=== PATIENT | male | born 1960 | race Caucasian/White ===

== ENCOUNTER 2016-05-18 12:22 | Inpatient (IN) | payer OTHER ==
[2016-05-18 12:46] VITALS: BMI 20.2
--- NOTE | 2016-05-18 15:10 | HP ---
COWS - Scale Resting Pulse: 0= [place] 80 or Below Sweatin=Flushed/Facial Moisture Restless Observation: 1= Difficult to Sit Still Pupil Size: 0= Normal to Room Light Bone or Joint Aches: 2= Severe Diffuse Aches Runny Nose/ Eye Tearin= Runny Nose/Eyes GI Upset > 30mins: 0= None Tremor Observation: 2= Slight Tremor Visible Yawning Observation: 2= >3x During Session Anxiety or Irritability: 2=Irritable/Anxious Goose Flesh Skin: 3=Piloerection COWS Score: 16 CIWA Score - CIWA Score Nausea/Vomitin-No Nausea/No Vomiting Muscle Tremors: 4-Moderate,w/Arms Extend Anxiety: 4-Mod. Anxious/Guarded Agitation: 4-Moderately Restless Paroxysmal Sweats: 3 Orientation: 0-Oriented Tacttile Disturbances: 0-None Auditory Disturbances: 0-None Visual Disturbances: 0-None Headache: 2-Mild CIWA-Ar Total Score: 17 Admission ROS BHS - HPI Chief Complaint: I am here for detox and stop using drugs. Allergies/Adverse Reactions: Allergies Allergy/AdvReac Type Severity Reaction Status Date / Time No Known Drug Allergies Allergy Verified 05/18/16 14:50 NKA Allergy Uncoded 05/18/16 14:50 History of Present Illness: pt is a 55yr old male with a history of heroin and alcohol dependence seeking detox for treatment. pt is also HIV/AIDS currently taking his own medication. Exam Limitations: No Limitations - Ebola screening Have you traveled outside of the country in the last 21 days: No Have you had contact with anyone from an Ebola affected area: No Have you been sick,other than usual withdrawal symptoms: No Do you have a fever: No - Review of Systems Constitutional: Chills, Diaphoresis, Loss of Appetite, Night Sweats, Changes in sleep, Unintentional Wgt. Loss EENT: reports: Nose Congestion Respiratory: reports: No Symptoms reported Cardiac: reports: No Symptoms Reported GI: reports: Poor Appetite, Poor Fluid Intake : reports: No Symptoms Reported Musculoskeletal: reports: No Symptoms Reported Integumentary: reports: Flushing Neuro: reports: Headache, Tingling, Tremors Endocrine: reports: Excessive Sweating, Flushing, Intolerance to Cold, Intolerance to Heat Hematology: reports: No Symptoms Reported Psychiatric: reports: Judgement Intact, Mood/Affect Appropiate, Orientated x3, Agitated, Anxious Other Systems: Reviewed and Negative Patient History - Patient Medical History Hx Anemia: No Hx Asthma: No Hx Chronic Obstructive Pulmonary Disease (COPD): No Hx Cancer: No Hx Cardiac Disorders: No Hx Congestive Heart Failure: No Hx Hypertension: No Hx Hypercholesterolemia: No Hx Pacemaker: No HX Cerebrovascular Accident: No Hx Seizures: No Hx Dementia: No Hx Diabetes: No Hx Gastrointestinal Disorders: No Hx Liver Disease: No Hx Genitourinary Disorders: No Hx Sexually Transmitted Disorders: No Hx Renal Disease (ESRD): No Hx Thyroid Disease: No Hx Human Immunodeficiency Virus (HIV): Yes (diagnosed 1981) Hx Depression: Yes Hx Suicide Attempt: No (denies) Hx Bipolar Disorder: Yes Hx Schizophrenia: No - Patient Surgical History Past Surgical History: Yes Hx Neurologic Surgery: No Hx Cataract Extraction: No Hx Cardiac Surgery: No Hx Lung Surgery: No Hx Breast Surgery: No Hx Breast Biopsy: No Hx Appendectomy: No Hx Cholecystectomy: No Hx Genitourinary Surgery: No Hx Section: No Hx Orthopedic Surgery: Yes (b/l hip replacement) Other Surgical History: SPLEENECTOMY 1981 Anesthesia Reaction: No - PPD History Previous Implant?: Yes Documented Results: Negative w/o proof Implanted On Prior [facility] Admission?: Yes PPD to be Administered?: Yes - Reproductive History Patient is a Female of Child Bearing Age (11 -55 yrs old): No - Smoking Cessation Smoking history: Current every day smoker Have you smoked in the past 12 months: Yes Aproximately how many cigarettes per day: 6 Hx Chewing Tobacco Use: No Initiated information on smoking cessation: Yes 'Breaking Loose' booklet given: 05/18/16 - Substance & Tx. History Hx Alcohol Use: Yes Hx Substance Use: Yes Substance Use Type: Alcohol, Heroin Hx Substance Use Treatment: Yes - Substances Abused Alcohol Route: Oral Frequency: Daily Amount used: VODKA- 1.5PTS 16OZ BEERS Age of first use: 13 Date of Last Use: 05/18/16 Heroin Route: Inhalation Frequency: Daily Amount used: 10BAGS- $100 Age of first use: 35 Date of Last Use: 05/17/16 Family Disease History - Family Disease History Family History: Denies Admission Physical Exam BHS - Vital Signs Vital Signs: Vital Signs - 24 hr 05/18/16 12:43 Temperature 98 F Pulse Rate 66 Respiratory 20 Rate Blood Pressure 142/85 - Physical General Appearance: Yes: Disheveled, Moderate Distress, Thin, Tremorous, Irritable, Sweating, Anxious HEENTM: Yes: Normal Voice Respiratory: Yes: Lungs Clear, Normal Breath Sounds, No Respiratory Distress Neck: Yes: No masses,lesions,Nodules Breast: Yes: Within Normal Limits Cardiology: Yes: Regular Rhythm, Regular Rate, S1, S2 Abdominal: Yes: Within Normal Limits, Normal Bowel Sounds, Non Tender Genitourinary: Yes: Within Normal Limits Back: Yes: Normal Inspection Musculoskeletal: Yes: full range of Motion, Back pain Extremities: Yes: Normal Capillary Refill, Normal Inspection, Tremors Neurological: Yes: Fully Oriented, Alert, Normal Response Integumentary: Yes: Normal Color, Diaphoresis Lymphatic: Yes: Within Normal Limits - Diagnostic (1) Neuropathy, generalized Current Visit: Yes Status: Chronic (2) AIDS (acquired immunodeficiency syndrome), CD4 >200 and <500 Current Visit: Yes Status: Chronic (3) Alcohol dependence with uncomplicated withdrawal Current Visit: Yes Status: Chronic (4) Opioid dependence with withdrawal Current Visit: Yes Status: Chronic Cleared for Admission [facility] - Detox or Rehab [facility] Level of Care: Medically Managed Detox Regimen/Protocol: Methadone/Librium [facility] Breath Alcohol Content Breath Alcohol Content: 0 Urine Drug Screen - Results Drug Screen Negative: No Urine Drug Screen Results: OPI-Opiates, MDMA-Ecstasy, BZO-Benzodiazepines
[2016-05-18] MEDS ORDERED: LOPERAMIDE HCL 2 MG CAPSULE PO PRN (15:11)
[2016-05-18] MEDS ORDERED: MAGNESIUM HYDROX 2400MG/30ML ORAL SUSPENSION 30 ML CUP PO PRN (15:11)
[2016-05-18] MEDS ORDERED: chlordiazePOXIDE HCL 25 MG CAPSULE PO PRN (15:11)
[2016-05-18] MEDS ORDERED: MENTHOL/PHENOL 1 EACH UD MM PRN (15:11)
[2016-05-18] MEDS ORDERED: ACETAMINOPHEN 325 MG TABLET (FP) PO PRN (15:11)
[2016-05-18] MEDS ORDERED: guaiFENesin/D-METHORPHAN HB 10 ML UNIT-DOSE CUPS PO PRN (15:11)
[2016-05-18] MEDS ORDERED: MAGNESIUM CITRATE 300 ML BOTTLE PO PRN (15:11)
[2016-05-18] MEDS ORDERED: MAG HYDROX/AL HYDROX/SIMETH 30 ML UNIT-DOSE CUP PO PRN (15:11)
[2016-05-18] MEDS ORDERED: IBUPROFEN 400 MG TABLET (FP) PO PRN (15:11)
[2016-05-18] MEDS ORDERED: hydrOXYzine PAMOATE 50 MG CAPSULE (FP) PO PRN (15:11)
[2016-05-18] MEDS ORDERED: P-EPHED 60MG/TRIPROLIDI 2.5MG TABLET PO PRN (15:11)
[2016-05-18] MEDS ORDERED: chlordiazePOXIDE HCL 25 MG CAPSULE PO ONE (15:53)
[2016-05-18] MEDS ORDERED: METHADONE HCL 10 MG TABLET (FOR DETOX USE ONLY) PO ONE ×2 (15:54→23:00)
[2016-05-18] MEDS: chlordiazePOXIDE HCL 25 MG CAPSULE PO SCH ×2 (17:42→22:26)
[2016-05-18] MEDS: THIAMINE HCL 100 MG TABLET (FP) PO SCH (22:25)
[2016-05-18] MEDS: diphenhydrAMINE HCL 50 MG CAPSULE PO PRN (22:27)
[2016-05-18 23:02] LABS: URINE APPEARANCE CLEAR; URINE BILIRUBIN NEGATIVE (NEGATIVE); URINE BLOOD NEGATIVE (NEGATIVE); URINE COLOR YELLOW; URINE GLUCOSE (UA) NEGATIVE (NEGATIVE); URINE KETONE NEGATIVE (NEGATIVE); URINE LEUK ESTERASE NEGATIVE (NEGATIVE); URINE NITRITE NEGATIVE (NEGATIVE); URINE UROBILINOGEN NEGATIVE E.U./dl (0.2-1.0)
[2016-05-18 23:15] LABS: URINE PROTEIN 2+ (NEGATIVE)
[2016-05-18 23:17] LABS: URINE MUCUS RARE; URINE RBC 5 /hpf (0-3); URINE WBC 2 /hpf (3-5)
[2016-05-19] MEDS: chlordiazePOXIDE HCL 25 MG CAPSULE PO SCH ×4 (06:12→22:29)
[2016-05-19] MEDS: RITONAVIR 100 MG TABLET PO SCH (08:43)
[2016-05-19] MEDS: EMTRICITABINE 200MG/TENOFOVIR 300MG PO SCH (08:43)
[2016-05-19] MEDS: ATAZANAVIR SO4 300 MG CAPSULE PO SCH (08:43)
[2016-05-19] MEDS: PATIENT'S OWN MEDICATION (NON-FORMULARY) (Dolutegravir Sodium 50 MG) PO SCH (08:43)
[2016-05-19] MEDS ORDERED: METHADONE HCL 10 MG TABLET (FOR DETOX USE ONLY) PO SCH (10:00)
[2016-05-19 10:09] LABS: MCH 28.8 pg (25.7-33.7); MCHC 32.5 g/dl (32.0-35.9); MEAN CELL VOLUME 88.6 fl (80-96); MEAN PLT VOLUME 10.9 fl (7.5-11.1); PLATELET COUNT 209 K/MM3 (134-434); RDW 16.4 % (11.9-15.9); WHITE BLOOD COUNT 9.1 K/mm3 (4.0-10.0)
[2016-05-19 10:17] LABS: CALCIUM 8.5 mg/dL (8.5-10.1)
[2016-05-19] MEDS: PRENATAL VITAMINS W/ FOLIC ACID TABLET (FP) PO SCH (10:17)
[2016-05-19] MEDS: NICOTINE 21 MG/24 HOURS TOPICAL PATCH TD SCH (10:18)
[2016-05-19 10:25] LABS: ALBUMIN 3.3 g/dl (3.4-5.0); ALK PHOS 139 U/L (45-117); ANION GAP 7 (8-16); BILIRUBIN,TOTAL 1.2 mg/dL (0.2-1.0); CO2 26 mmol/L (21-32); CREATININE 0.6 mg/dL (0.7-1.3); GLUCOSE,RANDOM 90 mg/dL (74-106); SGOT/AST 67 U/L (15-37); SGPT/ALT 62 U/L (12-78); TOT PROT 6.7 g/dl (6.4-8.2)
--- NOTE | 2016-05-19 10:40 | PN ---
[facility] CIWA - CIWA Score Nausea/Vomitin-No Nausea/No Vomiting Muscle Tremors: 4-Moderate,w/Arms Extend Anxiety: 3 Agitation: 4-Moderately Restless Paroxysmal Sweats: 3 Orientation: 0-Oriented Tacttile Disturbances: 0-None Auditory Disturbances: 0-None Visual Disturbances: 0-None Headache: 1-Very Mild CIWA-Ar Total Score: 15 BHS COWS - Scale Resting Pulse: 0= [place] 80 or Below Sweatin=Flushed/Facial Moisture Restless Observation: 0= Sits Still Pupil Size: 0= Normal to Room Light Bone or Joint Aches: 2= Severe Diffuse Aches Runny Nose/ Eye Tearin= Runny Nose/Eyes GI Upset > 30mins: 0= None Tremor Observation of Outstretched Hands: 2= Slight Tremor Visible Yawning Observation: 2= >3x During Session Anxiety or Irritability: 2=Irritable/Anxious Goose Flesh Skin: 0=Smooth Skin COWS Score: 12 S Progress Note (SOAP) Subjective: irritable agitation anxiety sweats interrupted sleep Objective: 05/19/16 10:39 Vital Signs Temperature 97.9 F 05/19/16 10:08 Pulse Rate 69 05/19/16 10:08 Respiratory Rate 16 05/19/16 10:08 Blood Pressure 130/75 05/19/16 10:08 O2 Sat by Pulse Oximetry (%) Laboratory Tests 05/18/16 05/19/16 05/19/16 22:24 06:00 06:00 WBC 9.1 RBC 4.32 Hgb 12.4 Hct 38.2 MCV 88.6 MCHC 32.5 RDW 16.4 H Plt Count 209 MPV 10.9 Sodium 144 Potassium 3.6 Chloride 111 H Carbon Dioxide 26 Anion Gap 7 L BUN 9 Creatinine 0.6 L Creat Clearance w eGFR > 60 Random Glucose 90 Calcium 8.5 Total Bilirubin 1.2 H AST 67 H ALT 62 Alkaline Phosphatase 139 H Total Protein 6.7 Albumin 3.3 L Urine Color Yellow Urine Appearance Clear Urine pH 6.0 Ur Specific [place] 1.019 Urine Protein 2+ H Urine Glucose (UA) Negative Urine Ketones Negative Urine Blood Negative Urine Nitrite Negative Urine Bilirubin Negative Urine Urobilinogen Negative Ur Leukocyte Esterase Negative Urine RBC 5 Urine WBC 2 Ur Epithelial Cells Rare Urine Mucus Rare awake/alert ambulating no acute distress Assessment: 05/19/16 10:40 withdrawal sx Plan: continue detox increase fluids
[2016-05-19] MEDS: buPROPion HCL 75 MG TABLET PO SCH ×2 (13:15→17:45)
--- NOTE | 2016-05-19 13:20 | CONSULT ---
[facility] Psychiatric Consult - Data Date of interview: 05/19/16 Admission source: [facility] Identifying data: This is 55 years old male ambulating with walker, with no psychiatric hospitalization history intoxicated aith : Alcohol, Opioids, Nicotine Substance Abuse History: - Smoking Cessation. Smoking history: Current every day smoker. Have you smoked in the past 12 months: Yes. Aproximately how many cigarettes per day: 6. Hx Chewing Tobacco Use: No. Initiated information on smoking cessation: Yes. 'Breaking Loose' booklet given: 05/18/16. - Substance & Tx. History. Hx Alcohol Use: Yes. Hx Substance Use: Yes. Substance Use Type : Alcohol, Heroin. Hx Substance Use Treatment: Yes. - Substances Abused. Alcohol. Route: Oral. Frequency: Daily. Amount used: VODKA- 1.5PTS 16OZ BEERS. Age of first use: 13. Date of Last Use: 05/18/16. Heroin. Route: Inhalation. Frequency: Daily. Amount used: 10BAGS- $100. Age of first use: 35. Date of Last Use: 05/17/16 Medical History: AIDS, Neuropathy, Byleteral Hip fracture history, ambulates with walker Psychiatric History: Patient reports history of depression and anxiety, reports tasking prior to admission: Wellbutrin 150mg po bid Physical/Sexual Abuse/Trauma History: Denies Additional Comment: Wellbutrin 150mg po bid Mental Status Exam - Mental Status Exam Alert and Oriented to: Person Cognitive Function: Fair Patient Appearance: Unkempt Mood: Sad Affect: Mood Congruent Patient Behavior: Cooperative Speech Pattern: Appropriate Voice Loudness: Normal Thought Process: Goal Oriented Thought Disorder: Being Controlled Hallucinations: Denies Suicidal Ideation: Denies Homicidal Ideation: Denies Insight/Judgement: Fair Sleep: Difficulty falling asleep Appetite: Fair Muscle strength/Tone: Clonus Gait/Station: Antalgic Additional Comments: Wellbutrin 150mg po bid Psychiatric Findings - Problem List ([place] 1, 2,3) (1) Alcohol dependence with uncomplicated withdrawal Current Visit: Yes Status: Chronic (2) Opioid dependence with withdrawal Current Visit: Yes Status: Chronic (3) Drug-induced mood disorder Current Visit: Yes Status: Acute - Initial Treatment Plan Initial Treatment Plan: Wellbutrin 150mg po bid
[2016-05-19] MEDS: THIAMINE HCL 100 MG TABLET (FP) PO SCH (22:29)
[2016-05-19] MEDS: diphenhydrAMINE HCL 50 MG CAPSULE PO PRN (22:29)
[2016-05-20] MEDS: chlordiazePOXIDE HCL 25 MG CAPSULE PO SCH ×2 (05:33→10:39)
[2016-05-20] MEDS: RITONAVIR 100 MG TABLET PO SCH (07:06)
[2016-05-20] MEDS: ATAZANAVIR SO4 300 MG CAPSULE PO SCH (07:06)
[2016-05-20] MEDS: EMTRICITABINE 200MG/TENOFOVIR 300MG PO SCH (07:06)
[2016-05-20] MEDS: PATIENT'S OWN MEDICATION (NON-FORMULARY) (Dolutegravir Sodium 50 MG) PO SCH (07:07)
--- NOTE | 2016-05-20 10:34 | PN ---
S CIWA - CIWA Score Nausea/Vomitin Muscle Tremors: 3 Anxiety: 3 Agitation: 2 Paroxysmal Sweats: 1-Minimal Palms Moist Orientation: 0-Oriented Tacttile Disturbances: 0-None Auditory Disturbances: 0-None Visual Disturbances: 1-Very Mild Sensitivity Headache: 1-Very Mild CIWA-Ar Total Score: 13 BHS COWS - Scale Resting Pulse: 0= [place] 80 or Below Sweatin= No chills or Flushing Restless Observation: 1= Difficult to Sit Still Pupil Size: 1= Pupils >than Normal Bone or Joint Aches: 0= None Runny Nose/ Eye Tearin= Nasal Congestion GI Upset > 30mins: 2= Nausea/Diarrhea Tremor Observation of Outstretched Hands: 2= Slight Tremor Visible Yawning Observation: 0= None Anxiety or Irritability: 2=Irritable/Anxious Goose Flesh Skin: 0=Smooth Skin COWS Score: 9 S Progress Note (SOAP) Objective: 05/20/16 10:34 Laboratory Tests 05/18/16 05/19/16 05/19/16 22:24 06:00 06:00 WBC 9.1 RBC 4.32 Hgb 12.4 Hct 38.2 MCV 88.6 MCHC 32.5 RDW 16.4 H Plt Count 209 MPV 10.9 Sodium 144 Potassium 3.6 Chloride 111 H Carbon Dioxide 26 Anion Gap 7 L BUN 9 Creatinine 0.6 L Creat Clearance w eGFR > 60 Random Glucose 90 Calcium 8.5 Total Bilirubin 1.2 H AST 67 H ALT 62 Alkaline Phosphatase 139 H Total Protein 6.7 Albumin 3.3 L Urine Color Yellow Urine Appearance Clear Urine pH 6.0 Ur Specific [place] 1.019 Urine Protein 2+ H Urine Glucose (UA) Negative Urine Ketones Negative Urine Blood Negative Urine Nitrite Negative Urine Bilirubin Negative Urine Urobilinogen Negative Ur Leukocyte Esterase Negative Urine RBC 5 Urine WBC 2 Ur Epithelial Cells Rare Urine Mucus Rare RPR Titer 05/19/16 06:00 WBC RBC Hgb Hct MCV MCHC RDW Plt Count MPV Sodium Potassium Chloride Carbon Dioxide Anion Gap BUN Creatinine Creat Clearance w eGFR Random Glucose Calcium Total Bilirubin AST ALT Alkaline Phosphatase Total Protein Albumin Urine Color Urine Appearance Urine pH Ur Specific [place] Urine Protein Urine Glucose (UA) Urine Ketones Urine Blood Urine Nitrite Urine Bilirubin Urine Urobilinogen Ur Leukocyte Esterase Urine RBC Urine WBC Ur Epithelial Cells Urine Mucus RPR Titer Nonreactive Vital Signs - 24 hr 05/19/16 05/19/16 05/19/16 14:51 18:08 22:33 Temperature 98.6 F 98.6 F 99 F Pulse Rate 80 74 70 Respiratory 16 18 18 Rate Blood Pressure 132/88 123/59 138/86 05/20/16 05/20/16 05/20/16 00:30 03:30 06:00 Temperature 98.2 F Pulse Rate 65 Respiratory 18 18 16 Rate Blood Pressure 117/72 05/20/16 10:19 Temperature 98.1 F Pulse Rate 68 Respiratory 18 Rate Blood Pressure 134/77 Assessment: 05/20/16 10:35 withdrawal Plan: continue detox protocol
[2016-05-20] MEDS: PRENATAL VITAMINS W/ FOLIC ACID TABLET (FP) PO SCH (10:39)
[2016-05-20] MEDS: buPROPion HCL 75 MG TABLET PO SCH ×2 (10:39→17:32)
[2016-05-20] MEDS: METHADONE HCL 5 MG TABLET (FOR DETOX USE ONLY) PO SCH (10:39)
[2016-05-20] MEDS: NICOTINE 21 MG/24 HOURS TOPICAL PATCH TD SCH (10:42)
[2016-05-20] MEDS: chlordiazePOXIDE 5 MG CAPSULE PO SCH ×2 (17:32→22:27)
[2016-05-20] MEDS: THIAMINE HCL 100 MG TABLET (FP) PO SCH (22:27)
[2016-05-21] MEDS: chlordiazePOXIDE 5 MG CAPSULE PO SCH ×2 (07:55→10:25)
[2016-05-21] MEDS: EMTRICITABINE 200MG/TENOFOVIR 300MG PO SCH (08:27)
[2016-05-21] MEDS: PATIENT'S OWN MEDICATION (NON-FORMULARY) (Dolutegravir Sodium 50 MG) PO SCH (08:27)
[2016-05-21] MEDS: RITONAVIR 100 MG TABLET PO SCH (08:27)
[2016-05-21] MEDS: ATAZANAVIR SO4 300 MG CAPSULE PO SCH (08:27)
[2016-05-21] MEDS: buPROPion HCL 75 MG TABLET PO SCH ×2 (10:25→17:09)
[2016-05-21] MEDS: PRENATAL VITAMINS W/ FOLIC ACID TABLET (FP) PO SCH (10:25)
[2016-05-21] MEDS: METHADONE HCL 5 MG TABLET (FOR DETOX USE ONLY) PO SCH (10:25)
[2016-05-21] MEDS: NICOTINE 21 MG/24 HOURS TOPICAL PATCH TD SCH (10:26)
--- NOTE | 2016-05-21 11:49 | PN ---
S Progress Note (SOAP) Subjective: ALERT,IRRITABLE,ANXIOUS,INTERRUPTED SLEEP,TREMOR,PAIN IN THE BODY AND BACK Objective: 05/21/16 11:46 Vital Signs Temperature 99.5 F 05/21/16 09:41 Pulse Rate 85 05/21/16 09:41 Respiratory Rate 20 05/21/16 09:41 Blood Pressure 124/73 05/21/16 09:41 O2 Sat by Pulse Oximetry (%) 05/21/16 11:46 Laboratory Last Values WBC 9.1 K/mm3 (4.0-10.0) 05/19/16 06:00 RBC 4.32 M/mm3 (4.00-5.60) 05/19/16 06:00 Hgb 12.4 GM/dL (11.7-16.9) 05/19/16 06:00 Hct 38.2 % (35.4-49) 05/19/16 06:00 MCV 88.6 fl (80-96) 05/19/16 06:00 MCHC 32.5 g/dl (32.0-35.9) 05/19/16 06:00 RDW 16.4 % (11.9-15.9) H 05/19/16 06:00 Plt Count 209 K/MM3 (134-434) 05/19/16 06:00 MPV 10.9 fl (7.5-11.1) 05/19/16 06:00 Sodium 144 mmol/L (136-145) 05/19/16 06:00 Potassium 3.6 mmol/L (3.5-5.1) 05/19/16 06:00 Chloride 111 mmol/L (98-107) H 05/19/16 06:00 Carbon Dioxide 26 mmol/L (21-32) 05/19/16 06:00 Anion Gap 7 (8-16) L 05/19/16 06:00 BUN 9 mg/dL (7-18) 05/19/16 06:00 Creatinine 0.6 mg/dL (0.7-1.3) L 05/19/16 06:00 Creat Clearance w eGFR > 60 (>60) 05/19/16 06:00 Random Glucose 90 mg/dL (74-106) 05/19/16 06:00 Calcium 8.5 mg/dL (8.5-10.1) 05/19/16 06:00 Total Bilirubin 1.2 mg/dL (0.2-1.0) H 05/19/16 06:00 AST 67 U/L (15-37) H 05/19/16 06:00 ALT 62 U/L (12-78) 05/19/16 06:00 Alkaline Phosphatase 139 U/L (45-117) H 05/19/16 06:00 Total Protein 6.7 g/dl (6.4-8.2) 05/19/16 06:00 Albumin 3.3 g/dl (3.4-5.0) L 05/19/16 06:00 Urine Color Yellow 05/18/16 22:24 Urine Appearance Clear 05/18/16 22:24 Urine pH 6.0 (5.0-8.0) 05/18/16 22:24 Ur Specific [place] 1.019 (1.001-1.035) 05/18/16 22:24 Urine Protein 2+ (NEGATIVE) H 05/18/16 22:24 Urine Glucose (UA) Negative (NEGATIVE) 05/18/16 22:24 Urine Ketones Negative (NEGATIVE) 05/18/16 22:24 Urine Blood Negative (NEGATIVE) 05/18/16 22:24 Urine Nitrite Negative (NEGATIVE) 05/18/16 22:24 Urine Bilirubin Negative (NEGATIVE) 05/18/16 22:24 Urine Urobilinogen Negative E.U./dl (0.2-1.0) 05/18/16 22:24 Ur Leukocyte Esterase Negative (NEGATIVE) 05/18/16 22:24 Urine RBC 5 /hpf (0-3) 05/18/16 22:24 Urine WBC 2 /hpf (3-5) 05/18/16 22:24 Ur Epithelial Cells Rare /hpf (FEW) 05/18/16 22:24 Urine Mucus Rare 05/18/16 22:24 RPR Titer Nonreactive (NONREACTIVE) 05/19/16 06:00 Assessment: 05/21/16 11:48 WITHDRAWAL SYMPTOM Plan: CONTINUE DETOX
[2016-05-21] MEDS: chlordiazePOXIDE HCL 10 MG CAPSULE PO SCH ×2 (17:07→22:23)
[2016-05-21] MEDS: THIAMINE HCL 100 MG TABLET (FP) PO SCH (22:23)
[2016-05-22] MEDS: chlordiazePOXIDE HCL 10 MG CAPSULE PO SCH ×2 (06:22→10:34)
[2016-05-22] MEDS: PATIENT'S OWN MEDICATION (NON-FORMULARY) (Dolutegravir Sodium 50 MG) PO SCH (07:56)
[2016-05-22] MEDS: ATAZANAVIR SO4 300 MG CAPSULE PO SCH (07:56)
[2016-05-22] MEDS: EMTRICITABINE 200MG/TENOFOVIR 300MG PO SCH (07:56)
[2016-05-22] MEDS: RITONAVIR 100 MG TABLET PO SCH (07:56)
[2016-05-22] MEDS ORDERED: METHADONE HCL 10 MG TABLET (FOR DETOX USE ONLY) PO SCH (10:00)
[2016-05-22] MEDS: PRENATAL VITAMINS W/ FOLIC ACID TABLET (FP) PO SCH (10:33)
[2016-05-22] MEDS: NICOTINE 21 MG/24 HOURS TOPICAL PATCH TD SCH (10:33)
[2016-05-22] MEDS: buPROPion HCL 75 MG TABLET PO SCH ×2 (10:34→17:53)
--- NOTE | 2016-05-22 12:49 | PN ---
S Progress Note (SOAP) Subjective: ALERT,IRRITABLE,ANXIOUS,INTERRUPTED SLEEP Objective: 05/22/16 12:48 Vital Signs Temperature 98.4 F 05/22/16 10:25 Pulse Rate 79 05/22/16 10:25 Respiratory Rate 18 05/22/16 10:25 Blood Pressure 124/93 05/22/16 10:25 O2 Sat by Pulse Oximetry (%) Assessment: 05/22/16 12:48 WITHDRAWAL SYMPTOM Plan: CONTINUE DETOX,DISCHARGE IN AM
[2016-05-22] MEDS: THIAMINE HCL 100 MG TABLET (FP) PO SCH (21:54)
[2016-05-23] MEDS ORDERED: METHADONE HCL 5 MG TABLET (FOR DETOX USE ONLY) PO SCH (06:00)
[2016-05-23 06:31] VITALS: BP 132/82; PULSE 72; TEMP 97.1
[2016-05-23] MEDS: ATAZANAVIR SO4 300 MG CAPSULE PO SCH (08:14)
[2016-05-23] MEDS: PATIENT'S OWN MEDICATION (NON-FORMULARY) (Dolutegravir Sodium 50 MG) PO SCH (08:14)
[2016-05-23] MEDS: EMTRICITABINE 200MG/TENOFOVIR 300MG PO SCH (08:14)
[2016-05-23] MEDS: RITONAVIR 100 MG TABLET PO SCH (08:14)
--- NOTE | 2016-05-23 09:10 | DS ---
[facility] Detox Discharge Summary Admission Date: 05/18/16 Discharge Date: 05/23/16 - History Present History: Alcohol Dependence, Opioid Dependence - Physical Exam Results Vital Signs: Vital Signs Temperature 97.1 F L 05/23/16 06:00 Pulse Rate 72 05/23/16 06:00 Respiratory Rate 16 05/23/16 06:00 Blood Pressure 132/82 05/23/16 06:00 O2 Sat by Pulse Oximetry (%) - Treatment Hospital Course: Detox Protocol Followed, Detoxed Safely, Responded well, Discharged Condition Good, Rehab Referral Accepted - Medication Discharge Medications: Ambulatory Orders Atazanavir [Reyataz -] 300 mg PO DAILY 05/18/16 Dolutegravir Sodium [Tivicay] 50 mg PO DAILY 05/18/16 Emtricitabine/Tenofovir (Tdf) [Truvada 200 mg-300 mg Tablet] 1 each PO DAILY 08/29 Ritonavir [Norvir -] 100 mg PO DAILY 05/18/16 Bupropion HCl [Wellbutrin -] 150 mg PO BID #60 tablet 05/19/16 - Diagnosis (1) Neuropathy, generalized Current Visit: Yes Status: Chronic (2) AIDS (acquired immunodeficiency syndrome), CD4 >200 and <500 Current Visit: Yes Status: Chronic (3) Alcohol dependence with uncomplicated withdrawal Current Visit: Yes Status: Chronic (4) Opioid dependence with withdrawal Current Visit: Yes Status: Chronic - AMA Did Patient Leave Against Medical Advice: No
== END 2016-05-23 09:53 | disposition home or self-care (01) | DRG 773 ==
LOC: YASAS 12:22 → Y6N 15:52
PROVIDERS: ADMIT Internal Medicine Addiction Medicine; ATTEND Internal Medicine Addiction Medicine
PROC: HZ2ZZZZ Detoxification Services for Substance Abuse Treatment (ICD-10-PCS; principal; 2016-05-18)
DX: F11.23 Opioid dependence with withdrawal (principal); F10.230 Alcohol dependence with withdrawal, uncomplicated; F19.24 Other psychoactive substance dependence with psychoactive substance-induced mood disorder; F17.210 Nicotine dependence, cigarettes, uncomplicated; B20 Human immunodeficiency virus [HIV] disease; G62.89 Other specified polyneuropathies; R26.2 Difficulty in walking, not elsewhere classified; Z99.89 Dependence on other enabling machines and devices; Z87.81 Personal history of (healed) traumatic fracture; Z59.0 Homelessness
CPT/HCPCS: 36415; 80053; 81003; 81015; 85027; 86593; 93005; 93010

== ENCOUNTER 2017-01-10 11:02 | Inpatient (IN) | payer OTHER ==
[2017-01-10 11:58] VITALS: BMI 22.5
--- NOTE | 2017-01-10 14:34 | HP ---
COWS - Scale Resting Pulse: 1= [place] 81-100 Sweatin= Chills/Flushing Restless Observation: 3= Extraneous Movement Pupil Size: 0= Normal to Room Light Bone or Joint Aches: 4=Acute Joint/Muscle Pain Runny Nose/ Eye Tearin= Runny Nose/Eyes GI Upset > 30mins: 0= None Tremor Observation: 2= Slight Tremor Visible Yawning Observation: 1= 1-2x During Session Anxiety or Irritability: 2=Irritable/Anxious Goose Flesh Skin: 0=Smooth Skin COWS Score: 16 CIWA Score - CIWA Score Nausea/Vomitin-No Nausea/No Vomiting Muscle Tremors: 4-Moderate,w/Arms Extend Anxiety: 5 Agitation: 4-Moderately Restless Paroxysmal Sweats: 1-Minimal Palms Moist Orientation: 0-Oriented Tacttile Disturbances: 3-Moderate Itch/Numb/Burn Auditory Disturbances: 0-None Visual Disturbances: 0-None Headache: 1-Very Mild CIWA-Ar Total Score: 18 Admission ROS S - HPI Chief Complaint: DETOX TX FOR HEROIN AND ALCOHOL DEPENDENCE Allergies/Adverse Reactions: Allergies Allergy/AdvReac Type Severity Reaction Status Date / Time No Known Drug Allergies Allergy Verified 01/10/17 12:55 NKA Allergy Uncoded 05/18/16 14:50 History of Present Illness: 56 Y/O MALE WITH A HX OF ALCOHOL AND HEROIN DEPENDENCE SEEING DETOX TX. PT STATES HE WAS AT [facility] LAST NIGHT DUE TO ALCOHOL AND DRUG INTOXICATION AND WAS DISCHARGED THEN REFERRED TO DETOX. Exam Limitations: Clinical Condition, Intoxication - Ebola screening Have you traveled outside of the country in the last 21 days: No Have you had contact with anyone from an Ebola affected area: No Have you been sick,other than usual withdrawal symptoms: No Do you have a fever: No - Review of Systems Constitutional: Chills, Loss of Appetite, Night Sweats, Unintentional Wgt. Loss EENT: reports: Blurred Vision, Tearing, Nose Congestion, Dental Problems ( DENTURES, BILATERAL) Respiratory: reports: No Symptoms reported Cardiac: reports: No Symptoms Reported GI: reports: Constipated, Nausea : reports: No Symptoms Reported Musculoskeletal: reports: Joint Pain, Muscle Pain Integumentary: reports: No Symptoms Reported Neuro: reports: Headache, Tremors, Unsteady Gait Endocrine: reports: No Symptoms Reported Hematology: reports: No Symptoms Reported Psychiatric: reports: Orientated x3, Anxious, Depressed Other Systems: Reviewed and Negative Patient History - Patient Medical History Hx Anemia: No Hx Asthma: No Hx Chronic Obstructive Pulmonary Disease (COPD): No Hx Cancer: No Hx Cardiac Disorders: No Hx Congestive Heart Failure: No Hx Hypertension: No Hx Hypercholesterolemia: No Hx Pacemaker: No HX Cerebrovascular Accident: No Hx Seizures: No Hx Dementia: No Hx Diabetes: No Hx Gastrointestinal Disorders: No Hx Liver Disease: No Hx Genitourinary Disorders: No Hx Sexually Transmitted Disorders: No Hx Renal Disease (ESRD): No Hx Thyroid Disease: No Hx Human Immunodeficiency Virus (HIV): Yes (diagnosed 1981;QUIT MED SINCE 3 MONTHS AGAIN. RETESTING PENDING.) Hx Hepatitis C: Yes (NOT YET TREATED) Hx Depression: Yes (ON MED) Hx Suicide Attempt: No (DENIES) Hx Bipolar Disorder: Yes Hx Schizophrenia: No - Patient Surgical History Past Surgical History: Yes Hx Neurologic Surgery: No Hx Cataract Extraction: No Hx Cardiac Surgery: No Hx Lung Surgery: No Hx Breast Surgery: No Hx Breast Biopsy: No Hx Abdominal Surgery: No Hx Appendectomy: No Hx Cholecystectomy: No Hx Genitourinary Surgery: No Hx Orthopedic Surgery: Yes (b/l hip replacement) Other Surgical History: SPLEENECTOMY 1981 Anesthesia Reaction: No - PPD History Previous Implant?: Yes Documented Results: Negative w/proof Implanted On Prior [facility] Admission?: Yes Date: 05/20/16 Results: 0 mm PPD to be Administered?: No - Reproductive History Patient is a Female of Child Bearing Age (11 -55 yrs old): No (MALE) Patient : (N/A) - Smoking Cessation Smoking history: Current every day smoker Have you smoked in the past 12 months: Yes Aproximately how many cigarettes per day: 6 Hx Chewing Tobacco Use: No Initiated information on smoking cessation: Yes 'Breaking Loose' booklet given: 01/10/17 - Substance & Tx. History Hx Alcohol Use: Yes (BEER) Hx Substance Use: Yes (HEROIN) Substance Use Type: Alcohol, Heroin Hx Substance Use Treatment: Yes (LAST TX AT [facility]-DETOX) - Substances Abused Heroin Route: Inhalation Frequency: Daily Amount used: 10-12 bags Age of first use: 45 Date of Last Use: 01/09/17 Alcohol Route: Oral Frequency: Daily Amount used: 12pk beers Age of first use: 13 Date of Last Use: 01/10/17 Family Disease History - Family Disease History Family History: Denies Admission Physical Exam [facility] - Vital Signs Vital Signs: Vital Signs - 24 hr 01/10/17 11:54 Temperature 97 F L Pulse Rate 91 H Respiratory 20 Rate Blood Pressure 117/77 - Physical General Appearance: Yes: Moderate Distress, Alcohol on Breath, Intoxicated, Thin , Irritable, Anxious HEENTM: Yes: EOMI, Normocephalic, RAY[place], Pharynx Normal, Nasal Congestion, Rhinorrhea (DRIPPING) Respiratory: Yes: Chest Non-Tender, Lungs Clear, Normal Breath Sounds, No Respiratory Distress Neck: Yes: Supple, Trachea in good position Breast: Yes: Breast Exam Deferred Cardiology: Yes: Regular Rhythm, Regular Rate, S1, S2 Abdominal: Yes: Normal Bowel Sounds, Non Tender, Soft Genitourinary: Yes: Other (N/A) Musculoskeletal: Yes: full range of Motion, Gait Steady Extremities: Yes: Normal Range of Motion, Non-Tender, Tremors, Pedal Edema ( LEFT MORE THAN RIGHT LEG) Neurological: Yes: java software engineer II-XII NML intact, Fully Oriented, Alert Integumentary: Yes: Dry, Warm Lymphatic: Yes: Within Normal Limits - Diagnostic (1) AIDS (acquired immunodeficiency syndrome), CD4 >200 and <500 Current Visit: Yes Status: Chronic (2) Alcohol dependence with uncomplicated withdrawal Current Visit: Yes Status: Acute (3) Neuropathy, generalized Current Visit: Yes Status: Chronic (4) Opioid dependence with withdrawal Current Visit: Yes Status: Acute (5) Use of cane as ambulatory aid Current Visit: Yes Status: Chronic (6) Weight loss observed on examination Current Visit: Yes Status: Suspected Cleared for Admission [facility] - Detox or Rehab [facility] Level of Care: Medically Managed Detox Regimen/Protocol: Methadone/Valium (PT REQUESTS VALIUM INSTEAD OF LIBRIUM STATING TOO DROWSY WITH LIBRIUM.) [facility] Breath Alcohol Content Breath Alcohol Content: 0.026 Urine Drug Screen - Results Drug Screen Negative: No Urine Drug Screen Results: OPI-Opiates, BZO-Benzodiazepines, OXY-Oxycodone
[2017-01-10] MEDS ORDERED: MAGNESIUM CITRATE 300 ML BOTTLE PO PRN (14:46)
[2017-01-10] MEDS ORDERED: P-EPHED 60MG/TRIPROLIDI 2.5MG TABLET PO PRN (14:46)
[2017-01-10] MEDS ORDERED: LOPERAMIDE HCL 2 MG CAPSULE PO PRN (14:46)
[2017-01-10] MEDS ORDERED: MAG HYDROX/AL HYDROX/SIMETH 30 ML UNIT-DOSE CUP PO PRN (14:46)
[2017-01-10] MEDS ORDERED: MAGNESIUM HYDROX 2400MG/30ML ORAL SUSPENSION 30 ML CUP PO PRN (14:46)
[2017-01-10] MEDS ORDERED: guaiFENesin/D-METHORPHAN HB 10 ML UNIT-DOSE CUPS PO PRN (14:46)
[2017-01-10] MEDS ORDERED: MENTHOL/PHENOL 1 EACH UD MM PRN (14:46)
[2017-01-10] MEDS ORDERED: diazePAM 5 MG TABLET PO ONE (15:15)
[2017-01-10] MEDS ORDERED: METHADONE HCL 10 MG TABLET (FOR DETOX USE ONLY) PO ONE ×2 (15:15→23:00)
[2017-01-10] MEDS: NICOTINE 14 MG/24 HOURS TOPICAL PATCH TD SCH (15:30)
[2017-01-10] MEDS: NICOTINE POLACRILEX 2 MG GUM BC PRN (15:36)
[2017-01-10 17:24] LABS: MCH 31.5 pg (25.7-33.7); MCHC 32.9 g/dl (32.0-35.9); MEAN CELL VOLUME 95.8 fl (80-96); MEAN PLT VOLUME 10.1 fl (7.5-11.1); PLATELET COUNT 428 K/MM3 (134-434); RDW 15.6 % (11.9-15.9); WHITE BLOOD COUNT 8.5 K/mm3 (4.0-10.0)
[2017-01-10 17:30] LABS: URINE APPEARANCE SLCLOUDY; URINE BILIRUBIN NEGATIVE (NEGATIVE); URINE BLOOD NEGATIVE (NEGATIVE); URINE COLOR YELLOW; URINE GLUCOSE (UA) NEGATIVE (NEGATIVE); URINE KETONE NEGATIVE (NEGATIVE); URINE LEUK ESTERASE NEGATIVE (NEGATIVE); URINE NITRITE NEGATIVE (NEGATIVE); URINE PROTEIN NEGATIVE (NEGATIVE)
[2017-01-10 17:49] LABS: ALBUMIN 3.6 g/dl (3.4-5.0); ANION GAP 9 (8-16); CALCIUM 8.8 mg/dL (8.5-10.1); CO2 27 mmol/L (21-32); GLUCOSE,RANDOM 96 mg/dL (74-106)
[2017-01-10 17:52] LABS: ALK PHOS 135 U/L (45-117); BILIRUBIN,TOTAL 1.1 mg/dL (0.2-1.0); CREATININE 0.9 mg/dL (0.7-1.3); SGOT/AST 98 U/L (15-37); SGPT/ALT 99 U/L (12-78); TOT PROT 7.3 g/dl (6.4-8.2)
[2017-01-10] MEDS: diazePAM 5 MG TABLET PO PRN (19:28)
[2017-01-10] MEDS: ACETAMINOPHEN 325 MG TABLET (FP) PO PRN (22:29)
[2017-01-10] MEDS: THIAMINE HCL 100 MG TABLET (FP) PO SCH (22:29)
[2017-01-10] MEDS: diazePAM 5 MG TABLET PO SCH (22:29)
[2017-01-10] MEDS: diphenhydrAMINE HCL 50 MG CAPSULE PO PRN (22:30)
[2017-01-11] MEDS: diazePAM 5 MG TABLET PO SCH ×3 (05:42→22:41)
[2017-01-11] MEDS ORDERED: METHADONE HCL 10 MG TABLET (FOR DETOX USE ONLY) PO SCH (10:00)
[2017-01-11] MEDS: PRENATAL VITAMINS W/ FOLIC ACID TABLET (FP) PO SCH (10:39)
[2017-01-11] MEDS: NICOTINE 14 MG/24 HOURS TOPICAL PATCH TD SCH (10:40)
[2017-01-11] MEDS: diazePAM 5 MG TABLET PO PRN ×2 (10:40→16:57)
[2017-01-11] MEDS: ACETAMINOPHEN 325 MG TABLET (FP) PO PRN ×2 (10:42→22:42)
--- NOTE | 2017-01-11 11:34 | PN ---
[facility] CIWA - CIWA Score Nausea/Vomitin-No Nausea/No Vomiting Muscle Tremors: 4-Moderate,w/Arms Extend Anxiety: 4-Mod. Anxious/Guarded Agitation: 4-Moderately Restless Paroxysmal Sweats: 1-Minimal Palms Moist Orientation: 0-Oriented Tacttile Disturbances: 3-Moderate Itch/Numb/Burn Auditory Disturbances: 0-None Visual Disturbances: 0-None Headache: 0-None Present CIWA-Ar Total Score: 16 S COWS - Scale Resting Pulse: 1= [place] 81-100 Sweatin= Chills/Flushing Restless Observation: 3= Extraneous Movement Pupil Size: 2= Moderately Dilated Bone or Joint Aches: 4=Acute Joint/Muscle Pain Runny Nose/ Eye Tearin= Runny Nose/Eyes GI Upset > 30mins: 0= None Tremor Observation of Outstretched Hands: 1= Tremor [place], Not Seen Yawning Observation: 1= 1-2x During Session Anxiety or Irritability: 2=Irritable/Anxious Goose Flesh Skin: 0=Smooth Skin COWS Score: 17 [facility] Progress Note (SOAP) Subjective: ANXIETY,SLIGHT TREMORS,SWEATS,OOB AMBULATING ON HALLWAY. Objective: 01/11/17 11:40 Vital Signs Temperature 99.0 F 01/11/17 10:12 Pulse Rate 84 01/11/17 10:12 Respiratory Rate 20 01/11/17 10:12 Blood Pressure 108/71 01/11/17 10:12 O2 Sat by Pulse Oximetry (%) Laboratory Last Values WBC 8.5 K/mm3 (4.0-10.0) 01/10/17 14:00 RBC 3.95 M/mm3 (4.00-5.60) L 01/10/17 14:00 Hgb 12.4 GM/dL (11.7-16.9) 01/10/17 14:00 Hct 37.9 % (35.4-49) 01/10/17 14:00 MCV 95.8 fl (80-96) 01/10/17 14:00 MCH 31.5 pg (25.7-33.7) 01/10/17 14:00 MCHC 32.9 g/dl (32.0-35.9) 01/10/17 14:00 RDW 15.6 % (11.9-15.9) 01/10/17 14:00 Plt Count 428 K/MM3 (134-434) D 01/10/17 14:00 MPV 10.1 fl (7.5-11.1) 01/10/17 14:00 Sodium 142 mmol/L (136-145) 01/10/17 14:00 Potassium 4.3 mmol/L (3.5-5.1) 01/10/17 14:00 Chloride 106 mmol/L (98-107) 01/10/17 14:00 Carbon Dioxide 27 mmol/L (21-32) 01/10/17 14:00 Anion Gap 9 (8-16) 01/10/17 14:00 BUN 15 mg/dL (7-18) D 01/10/17 14:00 Creatinine 0.9 mg/dL (0.7-1.3) D 01/10/17 14:00 Creat Clearance w eGFR > 60 (>60) 01/10/17 14:00 Random Glucose 96 mg/dL (74-106) 01/10/17 14:00 Calcium 8.8 mg/dL (8.5-10.1) 01/10/17 14:00 Total Bilirubin 1.1 mg/dL (0.2-1.0) H 01/10/17 14:00 AST 98 U/L (15-37) H D 01/10/17 14:00 ALT 99 U/L (12-78) H D 01/10/17 14:00 Alkaline Phosphatase 135 U/L (45-117) H 01/10/17 14:00 Total Protein 7.3 g/dl (6.4-8.2) 01/10/17 14:00 Albumin 3.6 g/dl (3.4-5.0) 01/10/17 14:00 Urine Color Yellow 01/10/17 15:00 Urine Appearance Slcloudy 01/10/17 15:00 Urine pH 7.0 (5.0-8.0) 01/10/17 15:00 Ur Specific [place] 1.020 (1.005-1.025) 01/10/17 15:00 Urine Protein Negative (NEGATIVE) 01/10/17 15:00 Urine Glucose (UA) Negative (NEGATIVE) 01/10/17 15:00 Urine Ketones Negative (NEGATIVE) 01/10/17 15:00 Urine Blood Negative (NEGATIVE) 01/10/17 15:00 Urine Nitrite Negative (NEGATIVE) 01/10/17 15:00 Urine Bilirubin Negative (NEGATIVE) 01/10/17 15:00 Urine Urobilinogen 2.0 mg/dL (0.2-1.0) 01/10/17 15:00 Ur Leukocyte Esterase Negative (NEGATIVE) 01/10/17 15:00 Assessment: 01/11/17 11:40 WITHDRAWAL SX Plan: CONTINUE DETOX INCREASE PO FLUIDS
--- NOTE | 2017-01-11 12:43 | EKG ---
Test Reason : Blood Pressure : / mmHG Vent. Rate : 075 BPM Atrial Rate : 075 BPM P-R Int : 132 ms QRS Dur : 098 ms QT Int : 422 ms P-R-T Axes : 054 -51 013 degrees QTc Int : 471 ms NORMAL SINUS RHYTHM LEFT ANTERIOR FASCICULAR BLOCK ABNORMAL ECG NO PREVIOUS ECGS AVAILABLE Confirmed by PEREZ AREVALO MD ([id number]) on 01/11/2017 12:43:05 PM Referred By: Ang Moss Confirmed By:PEREZ AREVALO MD
--- NOTE | 2017-01-11 13:47 | CONSULT ---
[facility] Psychiatric Consult - Data Date of interview: 01/11/17 Admission source: [facility] Identifying data: Readmission to [facility] for this 56 y/o male seeking detox treatment on for heroin,cocaine and phencyclidine dependence.Patient is single without children,domiciled,unemployed and supported on food stamps. Substance Abuse History: Confirmed by patient in this interview. Smoking Cessation. Smoking history: Current every day smoker. Have you smoked in the past 12 months: Yes. Aproximately how many cigarettes per day: 6. Hx Chewing Tobacco Use: No. Initiated information on smoking cessation: Yes. 'Breaking Loose' booklet given: 01/10/17. - Substance & Tx. History. Hx Alcohol Use: Yes (BEER). Hx Substance Use: Yes (HEROIN). Substance Use Type: Alcohol, Heroin. Hx Substance Use Treatment: Yes (LAST TX AT [facility]-DETOX). - Substances Abused. Heroin. Route: Inhalation. Frequency: Daily. Amount used: 10-12 bags. Age of first use: 45. Date of Last Use: 01/09/17. Alcohol. Route: Oral. Frequency: Daily. Amount used: 12pk beers. Age of first use: 13. Date of Last Use: 01/10/17 Medical History: HIV infection since 1981,hepatitis C,neuropathy,bilateral hip replacement and a history of splenectomy.Patient ambulates with a cane. Psychiatric History: Patient denies. Physical/Sexual Abuse/Trauma History: Patient denies. Additional Comment: Urine Drug Screen Results: OPI-Opiates, BZO-Benzodiazepines , OXY-Oxycodone.Noted. Mental Status Exam - Mental Status Exam Alert and Oriented to: Time, Place, Person Cognitive Function: Good Patient Appearance: Unkempt, Disheveled Mood: Nervous, Withdrawn Affect: Mood Congruent Patient Behavior: Fatigued, Cooperative (superficially) Speech Pattern: Clear Voice Loudness: Normal Thought Process: Goal Oriented Thought Disorder: Not Present Hallucinations: Denies Suicidal Ideation: Denies Homicidal Ideation: Denies Insight/Judgement: Poor Sleep: Well Appetite: Good Gait/Station: Other (walks with a cane) Psychiatric Findings - Problem List ([place] 1, 2,3) (1) Alcohol dependence with uncomplicated withdrawal Current Visit: Yes Status: Acute (2) Opioid dependence with withdrawal Current Visit: Yes Status: Acute (3) Nicotine dependence Current Visit: Yes Status: Acute (4) Drug-induced mood disorder Current Visit: Yes Status: Acute (5) AIDS (acquired immunodeficiency syndrome), CD4 >200 and <500 Current Visit: Yes Status: Chronic (6) Neuropathy, generalized Current Visit: Yes Status: Chronic (7) Use of cane as ambulatory aid Current Visit: Yes Status: Chronic - Initial Treatment Plan Initial Treatment Plan: Psychoeducation.Detoxification.Observation.
[2017-01-11] MEDS ORDERED: buPROPion HCL 75 MG TABLET PO ONE (14:30)
[2017-01-11] MEDS: IBUPROFEN 400 MG TABLET (FP) PO PRN (16:57)
[2017-01-11] MEDS: THIAMINE HCL 100 MG TABLET (FP) PO SCH (22:40)
[2017-01-11] MEDS: diphenhydrAMINE HCL 50 MG CAPSULE PO PRN (22:41)
[2017-01-12] MEDS: diazePAM 5 MG TABLET PO PRN ×2 (06:33→15:26)
[2017-01-12 10:03] LABS: INR 1.04 (0.82-1.09); PROTHROMBIN TIME (PATIENT) 11.4 SEC (9.98-11.88)
[2017-01-12 10:31] LABS: ALBUMIN 2.8 g/dl (3.4-5.0); BILIRUBIN,DIRECT 0.2 mg/dL (0.0-0.2); BILIRUBIN,TOTAL 0.5 mg/dL (0.2-1.0); TOT PROT 6.2 g/dl (6.4-8.2)
[2017-01-12] MEDS: PRENATAL VITAMINS W/ FOLIC ACID TABLET (FP) PO SCH (10:40)
[2017-01-12] MEDS: METHADONE HCL 5 MG TABLET (FOR DETOX USE ONLY) PO SCH (10:40)
[2017-01-12] MEDS: diazePAM 5 MG TABLET PO SCH ×2 (10:40→22:25)
[2017-01-12] MEDS: NICOTINE 14 MG/24 HOURS TOPICAL PATCH TD SCH (10:41)
[2017-01-12] MEDS: ACETAMINOPHEN 325 MG TABLET (FP) PO PRN (10:41)
--- NOTE | 2017-01-12 10:58 | PN ---
[facility] CIWA - CIWA Score Nausea/Vomitin-No Nausea/No Vomiting Muscle Tremors: 4-Moderate,w/Arms Extend Anxiety: 4-Mod. Anxious/Guarded Agitation: 4-Moderately Restless Paroxysmal Sweats: 1-Minimal Palms Moist Orientation: 0-Oriented Tacttile Disturbances: 3-Moderate Itch/Numb/Burn Auditory Disturbances: 0-None Visual Disturbances: 0-None Headache: 0-None Present CIWA-Ar Total Score: 16 S COWS - Scale Resting Pulse: 0= [place] 80 or Below Sweatin= Chills/Flushing Restless Observation: 3= Extraneous Movement Pupil Size: 2= Moderately Dilated Bone or Joint Aches: 4=Acute Joint/Muscle Pain Runny Nose/ Eye Tearin= Nasal Congestion GI Upset > 30mins: 1= Stomach Cramp Tremor Observation of Outstretched Hands: 1= Tremor [place], Not Seen Yawning Observation: 1= 1-2x During Session Anxiety or Irritability: 2=Irritable/Anxious Goose Flesh Skin: 0=Smooth Skin COWS Score: 16 [facility] Progress Note (SOAP) Subjective: DECREASED ANXIETY. SLIGHT TREMOR. ALERT O X 3. OOB AMBULATING ON UNIT. Objective: 01/12/17 10:57 Vital Signs Temperature 97.0 F L 01/12/17 09:28 Pulse Rate 80 01/12/17 09:28 Respiratory Rate 18 01/12/17 09:28 Blood Pressure 111/73 01/12/17 09:28 O2 Sat by Pulse Oximetry (%) Laboratory Last Values WBC 8.5 K/mm3 (4.0-10.0) 01/10/17 14:00 RBC 3.95 M/mm3 (4.00-5.60) L 01/10/17 14:00 Hgb 12.4 GM/dL (11.7-16.9) 01/10/17 14:00 Hct 37.9 % (35.4-49) 01/10/17 14:00 MCV 95.8 fl (80-96) 01/10/17 14:00 MCH 31.5 pg (25.7-33.7) 01/10/17 14:00 MCHC 32.9 g/dl (32.0-35.9) 01/10/17 14:00 RDW 15.6 % (11.9-15.9) 01/10/17 14:00 Plt Count 428 K/MM3 (134-434) D 01/10/17 14:00 MPV 10.1 fl (7.5-11.1) 01/10/17 14:00 INR 1.04 (0.82-1.09) 01/12/17 07:00 Sodium 142 mmol/L (136-145) 01/10/17 14:00 Potassium 4.3 mmol/L (3.5-5.1) 01/10/17 14:00 Chloride 106 mmol/L (98-107) 01/10/17 14:00 Carbon Dioxide 27 mmol/L (21-32) 01/10/17 14:00 Anion Gap 9 (8-16) 01/10/17 14:00 BUN 15 mg/dL (7-18) D 01/10/17 14:00 Creatinine 0.9 mg/dL (0.7-1.3) D 01/10/17 14:00 Creat Clearance w eGFR > 60 (>60) 01/10/17 14:00 Random Glucose 96 mg/dL (74-106) 01/10/17 14:00 Calcium 8.8 mg/dL (8.5-10.1) 01/10/17 14:00 Total Bilirubin 0.5 mg/dL (0.2-1.0) D 01/12/17 07:00 Direct Bilirubin 0.2 mg/dL (0.0-0.2) 01/12/17 07:00 AST 70 U/L (15-37) H D 01/12/17 07:00 ALT 75 U/L (12-78) D 01/12/17 07:00 Alkaline Phosphatase 153 U/L (45-117) H 01/12/17 07:00 Total Protein 6.2 g/dl (6.4-8.2) L 01/12/17 07:00 Albumin 2.8 g/dl (3.4-5.0) L D 01/12/17 07:00 Urine Color Yellow 01/10/17 15:00 Urine Appearance Slcloudy 01/10/17 15:00 Urine pH 7.0 (5.0-8.0) 01/10/17 15:00 Ur Specific [place] 1.020 (1.005-1.025) 01/10/17 15:00 Urine Protein Negative (NEGATIVE) 01/10/17 15:00 Urine Glucose (UA) Negative (NEGATIVE) 01/10/17 15:00 Urine Ketones Negative (NEGATIVE) 01/10/17 15:00 Urine Blood Negative (NEGATIVE) 01/10/17 15:00 Urine Nitrite Negative (NEGATIVE) 01/10/17 15:00 Urine Bilirubin Negative (NEGATIVE) 01/10/17 15:00 Urine Urobilinogen 2.0 mg/dL (0.2-1.0) 01/10/17 15:00 Ur Leukocyte Esterase Negative (NEGATIVE) 01/10/17 15:00 RPR Titer Nonreactive (NONREACTIVE) 01/10/17 14:00 Assessment: 01/12/17 10:58 WITHDRAWAL SX Plan: CONTINUE DETOX
[2017-01-12] MEDS: buPROPion HCL 75 MG TABLET PO SCH ×2 (11:53→15:27)
[2017-01-12] MEDS: IBUPROFEN 400 MG TABLET (FP) PO PRN (12:48)
[2017-01-12] MEDS: NICOTINE POLACRILEX 2 MG GUM BC PRN (15:26)
[2017-01-12] MEDS: THIAMINE HCL 100 MG TABLET (FP) PO SCH (22:25)
[2017-01-12] MEDS: BACITRACIN 0.9 GM PACKET TP SCH (23:05)
[2017-01-13] MEDS: BACITRACIN 0.9 GM PACKET TP SCH ×2 (09:28→22:32)
[2017-01-13] MEDS: buPROPion HCL 75 MG TABLET PO SCH ×2 (09:28→13:58)
[2017-01-13] MEDS: diazePAM 5 MG TABLET PO SCH ×2 (09:28→22:32)
[2017-01-13] MEDS: PRENATAL VITAMINS W/ FOLIC ACID TABLET (FP) PO SCH (09:28)
[2017-01-13] MEDS: METHADONE HCL 5 MG TABLET (FOR DETOX USE ONLY) PO SCH (10:07)
[2017-01-13] MEDS: NICOTINE POLACRILEX 2 MG GUM BC PRN (10:08)
[2017-01-13] MEDS: NICOTINE 14 MG/24 HOURS TOPICAL PATCH TD SCH (10:08)
--- NOTE | 2017-01-13 11:02 | PN ---
S Progress Note (SOAP) Subjective: ANXIETY,SLIGHT TREMORS, FATIGUE. Objective: 01/13/17 11:00 Vital Signs Temperature 97.1 F L 01/13/17 09:49 Pulse Rate 86 01/13/17 09:49 Respiratory Rate 18 01/13/17 09:49 Blood Pressure 116/71 01/13/17 09:49 O2 Sat by Pulse Oximetry (%) Laboratory Last Values WBC 8.5 K/mm3 (4.0-10.0) 01/10/17 14:00 RBC 3.95 M/mm3 (4.00-5.60) L 01/10/17 14:00 Hgb 12.4 GM/dL (11.7-16.9) 01/10/17 14:00 Hct 37.9 % (35.4-49) 01/10/17 14:00 MCV 95.8 fl (80-96) 01/10/17 14:00 MCH 31.5 pg (25.7-33.7) 01/10/17 14:00 MCHC 32.9 g/dl (32.0-35.9) 01/10/17 14:00 RDW 15.6 % (11.9-15.9) 01/10/17 14:00 Plt Count 428 K/MM3 (134-434) D 01/10/17 14:00 MPV 10.1 fl (7.5-11.1) 01/10/17 14:00 INR 1.04 (0.82-1.09) 01/12/17 07:00 Sodium 142 mmol/L (136-145) 01/10/17 14:00 Potassium 4.3 mmol/L (3.5-5.1) 01/10/17 14:00 Chloride 106 mmol/L (98-107) 01/10/17 14:00 Carbon Dioxide 27 mmol/L (21-32) 01/10/17 14:00 Anion Gap 9 (8-16) 01/10/17 14:00 BUN 15 mg/dL (7-18) D 01/10/17 14:00 Creatinine 0.9 mg/dL (0.7-1.3) D 01/10/17 14:00 Creat Clearance w eGFR > 60 (>60) 01/10/17 14:00 Random Glucose 96 mg/dL (74-106) 01/10/17 14:00 Calcium 8.8 mg/dL (8.5-10.1) 01/10/17 14:00 Total Bilirubin 0.5 mg/dL (0.2-1.0) D 01/12/17 07:00 Direct Bilirubin 0.2 mg/dL (0.0-0.2) 01/12/17 07:00 AST 70 U/L (15-37) H D 01/12/17 07:00 ALT 75 U/L (12-78) D 01/12/17 07:00 Alkaline Phosphatase 153 U/L (45-117) H 01/12/17 07:00 Total Protein 6.2 g/dl (6.4-8.2) L 01/12/17 07:00 Albumin 2.8 g/dl (3.4-5.0) L D 01/12/17 07:00 Urine Color Yellow 01/10/17 15:00 Urine Appearance Slcloudy 01/10/17 15:00 Urine pH 7.0 (5.0-8.0) 01/10/17 15:00 Ur Specific [place] 1.020 (1.005-1.025) 01/10/17 15:00 Urine Protein Negative (NEGATIVE) 01/10/17 15:00 Urine Glucose (UA) Negative (NEGATIVE) 01/10/17 15:00 Urine Ketones Negative (NEGATIVE) 01/10/17 15:00 Urine Blood Negative (NEGATIVE) 01/10/17 15:00 Urine Nitrite Negative (NEGATIVE) 01/10/17 15:00 Urine Bilirubin Negative (NEGATIVE) 01/10/17 15:00 Urine Urobilinogen 2.0 mg/dL (0.2-1.0) 01/10/17 15:00 Ur Leukocyte Esterase Negative (NEGATIVE) 01/10/17 15:00 RPR Titer Nonreactive (NONREACTIVE) 01/10/17 14:00 Assessment: 01/13/17 11:00 WITHDRAWAL SX Plan: CONTINUE DETOX
[2017-01-13] MEDS: THIAMINE HCL 100 MG TABLET (FP) PO SCH (22:32)
[2017-01-14] MEDS ORDERED: METHADONE HCL 10 MG TABLET (FOR DETOX USE ONLY) PO SCH (10:00)
[2017-01-14] MEDS ORDERED: diazePAM 5 MG TABLET PO SCH (10:00)
[2017-01-14] MEDS: PRENATAL VITAMINS W/ FOLIC ACID TABLET (FP) PO SCH (10:28)
[2017-01-14] MEDS: buPROPion HCL 75 MG TABLET PO SCH ×2 (10:28→13:35)
[2017-01-14] MEDS: BACITRACIN 0.9 GM PACKET TP SCH ×2 (10:28→22:25)
[2017-01-14] MEDS: NICOTINE 14 MG/24 HOURS TOPICAL PATCH TD SCH (10:28)
[2017-01-14] MEDS ORDERED: ONDANSETRON *ODT* 4 MG TABLET SL PRN (12:41)
--- NOTE | 2017-01-14 20:07 | PN ---
[facility] Progress Note (SOAP) Subjective: Tremors, Interrupted Sleep, Nausea, H/A, Stomach Cramping, Sweating, Body Aches. Objective: PT. A & O X 3, OBSERVED AMBULATING ON UNIT WITH ASSISTANCE OF A CANE. NO ACUTE DISTRESS. 01/14/17 20:06 Vital Signs Temperature 98.3 F 01/14/17 17:48 Pulse Rate 89 01/14/17 17:48 Respiratory Rate 20 01/14/17 17:48 Blood Pressure 107/68 01/14/17 17:48 O2 Sat by Pulse Oximetry (%) Laboratory Tests 01/10/17 01/10/17 01/10/17 14:00 14:00 14:00 WBC 8.5 RBC 3.95 L Hgb 12.4 Hct 37.9 MCV 95.8 MCH 31.5 MCHC 32.9 RDW 15.6 Plt Count 428 D MPV 10.1 INR Sodium 142 Potassium 4.3 Chloride 106 Carbon Dioxide 27 Anion Gap 9 BUN 15 D Creatinine 0.9 D Creat Clearance w eGFR > 60 Random Glucose 96 Calcium 8.8 Total Bilirubin 1.1 H Direct Bilirubin AST 98 H D ALT 99 H D Alkaline Phosphatase 135 H Total Protein 7.3 Albumin 3.6 Urine Color Urine Appearance Urine pH Ur Specific [place] Urine Protein Urine Glucose (UA) Urine Ketones Urine Blood Urine Nitrite Urine Bilirubin Urine Urobilinogen Ur Leukocyte Esterase RPR Titer Nonreactive 01/10/17 01/12/17 01/12/17 15:00 07:00 07:00 WBC RBC Hgb Hct MCV MCH MCHC RDW Plt Count MPV INR 1.04 Sodium Potassium Chloride Carbon Dioxide Anion Gap BUN Creatinine Creat Clearance w eGFR Random Glucose Calcium Total Bilirubin 0.5 D Direct Bilirubin 0.2 AST 70 H D ALT 75 D Alkaline Phosphatase 153 H Total Protein 6.2 L Albumin 2.8 L D Urine Color Yellow Urine Appearance Slcloudy Urine pH 7.0 Ur Specific [place] 1.020 Urine Protein Negative Urine Glucose (UA) Negative Urine Ketones Negative Urine Blood Negative Urine Nitrite Negative Urine Bilirubin Negative Urine Urobilinogen 2.0 Ur Leukocyte Esterase Negative RPR Titer LABS NOTED. Assessment: 01/14/17 20:06 WITHDRAWAL SYMPTOMS. Plan: CONTINUE DETOX. PRN ZOFRAN FOR NAUSEA / VOMITING.
[2017-01-14] MEDS: diphenhydrAMINE HCL 50 MG CAPSULE PO PRN (22:25)
[2017-01-14] MEDS: THIAMINE HCL 100 MG TABLET (FP) PO SCH (22:25)
[2017-01-15] MEDS ORDERED: METHADONE HCL 5 MG TABLET (FOR DETOX USE ONLY) PO SCH (06:00)
[2017-01-15 06:21] VITALS: BP 151/86; PULSE 69; TEMP 97.4
[2017-01-15] MEDS: buPROPion HCL 75 MG TABLET PO SCH (09:19)
[2017-01-15] MEDS: BACITRACIN 0.9 GM PACKET TP SCH (09:19)
[2017-01-15] MEDS: NICOTINE 14 MG/24 HOURS TOPICAL PATCH TD SCH (09:19)
--- NOTE | 2017-01-15 19:07 | DS ---
[facility] Detox Discharge Summary Admission Date: 01/10/17 Discharge Date: 01/15/17 - History Present History: Alcohol Dependence, Opioid Dependence Additional Comments: PATIENT ADVISED TO FOLLOW-UP WITH LOCAL 12-STEP / NA / AA OUTPATIENT SUPPORT GROUP FOR AFTERCARE. PATIENT WAS DISCHARGED FROM UNIT IN STABLE MEDICAL CONDITION. Pertinent Past History: Hep C, HIV / AIDS, Depression, Bipolar Disorder, Neuropathy. - Physical Exam Results Vital Signs: Vital Signs Temperature 97.4 F L 01/15/17 06:21 Pulse Rate 69 01/15/17 06:21 Respiratory Rate 16 01/15/17 06:21 Blood Pressure 151/86 01/15/17 06:21 O2 Sat by Pulse Oximetry (%) Pertinent Admission Physical Exam Findings: WITHDRAWAL SYMPTOMS. Laboratory Tests 01/10/17 01/10/17 01/10/17 14:00 14:00 14:00 WBC 8.5 RBC 3.95 L Hgb 12.4 Hct 37.9 MCV 95.8 MCH 31.5 MCHC 32.9 RDW 15.6 Plt Count 428 D MPV 10.1 INR Sodium 142 Potassium 4.3 Chloride 106 Carbon Dioxide 27 Anion Gap 9 BUN 15 D Creatinine 0.9 D Creat Clearance w eGFR > 60 Random Glucose 96 Calcium 8.8 Total Bilirubin 1.1 H Direct Bilirubin AST 98 H D ALT 99 H D Alkaline Phosphatase 135 H Total Protein 7.3 Albumin 3.6 Urine Color Urine Appearance Urine pH Ur Specific [place] Urine Protein Urine Glucose (UA) Urine Ketones Urine Blood Urine Nitrite Urine Bilirubin Urine Urobilinogen Ur Leukocyte Esterase RPR Titer Nonreactive 01/10/17 01/12/17 01/12/17 15:00 07:00 07:00 WBC RBC Hgb Hct MCV MCH MCHC RDW Plt Count MPV INR 1.04 Sodium Potassium Chloride Carbon Dioxide Anion Gap BUN Creatinine Creat Clearance w eGFR Random Glucose Calcium Total Bilirubin 0.5 D Direct Bilirubin 0.2 AST 70 H D ALT 75 D Alkaline Phosphatase 153 H Total Protein 6.2 L Albumin 2.8 L D Urine Color Yellow Urine Appearance Slcloudy Urine pH 7.0 Ur Specific [place] 1.020 Urine Protein Negative Urine Glucose (UA) Negative Urine Ketones Negative Urine Blood Negative Urine Nitrite Negative Urine Bilirubin Negative Urine Urobilinogen 2.0 Ur Leukocyte Esterase Negative RPR Titer LABS NOTED. - Treatment Hospital Course: Detox Protocol Followed, Detoxed Safely, Responded well, Discharged Condition Good Patient has Accepted a Rehab Referral to: PT ADVISED TO FOLLOW-UP WITH LOCAL 12- STEP/NA/AA PROGRAMS FOR AFTERCARE. - Medication Discharge Medications: Ambulatory Orders Bupropion HCl [Wellbutrin Sr] 150 mg PO BID 01/10/17 Gabapentin [Neurontin -] 800 mg PO Q8H 01/10/17 - Diagnosis (1) Alcohol dependence with uncomplicated withdrawal Status: Acute (2) Drug-induced mood disorder Status: Acute (3) Nicotine dependence Status: Chronic Qualifiers: Nicotine product type: cigarettes Substance use status: uncomplicated Qualified Code(s): F17.210 - Nicotine dependence, cigarettes, uncomplicated (4) Opioid dependence with withdrawal Status: Acute (5) AIDS (acquired immunodeficiency syndrome), CD4 >200 and <500 Status: Chronic (6) Neuropathy, generalized Status: Chronic (7) Use of cane as ambulatory aid Status: Chronic (8) Weight loss observed on examination Status: Suspected - AMA Did Patient Leave Against Medical Advice: No
== END 2017-01-15 09:18 | disposition home or self-care (01) | DRG 773 ==
LOC: YASAS 11:02 → Y3N 14:06
PROVIDERS: ADMIT Internal Medicine Addiction Medicine; ATTEND Internal Medicine Addiction Medicine
PROC: HZ2ZZZZ Detoxification Services for Substance Abuse Treatment (ICD-10-PCS; principal; 2017-01-10)
DX: F11.23 Opioid dependence with withdrawal (principal); F10.230 Alcohol dependence with withdrawal, uncomplicated; F10.220 Alcohol dependence with intoxication, uncomplicated; F17.210 Nicotine dependence, cigarettes, uncomplicated; F19.20 Other psychoactive substance dependence, uncomplicated; B20 Human immunodeficiency virus [HIV] disease; B18.2 Chronic viral hepatitis C; G62.9 Polyneuropathy, unspecified; R26.2 Difficulty in walking, not elsewhere classified; Z99.89 Dependence on other enabling machines and devices; Z87.898 Personal history of other specified conditions; Z96.643 Presence of artificial hip joint, bilateral; Z90.81 Acquired absence of spleen
CPT/HCPCS: 36415; 80053; 80076; 81003; 85027; 85610; 86593; 93005; 93010

== ENCOUNTER 2017-02-19 12:35 | Inpatient (IN) | payer OTHER ==
[2017-02-19 16:48] VITALS: BMI 20.5
--- NOTE | 2017-02-19 18:48 | HP ---
COWS - Scale Resting Pulse: 0= [place] 80 or Below Sweatin=Flushed/Facial Moisture Restless Observation: 1= Difficult to Sit Still Pupil Size: 2= Moderately Dilated Bone or Joint Aches: 1= Mild Discomfort Runny Nose/ Eye Tearin= Runny Nose/Eyes GI Upset > 30mins: 2= Nausea/Diarrhea Tremor Observation: 2= Slight Tremor Visible Yawning Observation: 1= 1-2x During Session Anxiety or Irritability: 2=Irritable/Anxious Goose Flesh Skin: 0=Smooth Skin COWS Score: 15 CIWA Score - CIWA Score Nausea/Vomitin-Mild Nausea/No Vomiting Muscle Tremors: 3 Anxiety: 4-Mod. Anxious/Guarded Agitation: 4-Moderately Restless Paroxysmal Sweats: 3 Orientation: 0-Oriented Tacttile Disturbances: 1-Very Mild Itch/Numbness Auditory Disturbances: 0-None Visual Disturbances: 0-None Headache: 0-None Present CIWA-Ar Total Score: 16 Admission ROS [facility] - HPI Chief Complaint: Withdrawal sx. Allergies/Adverse Reactions: Allergies Allergy/AdvReac Type Severity Reaction Status Date / Time No Known Drug Allergies Allergy Verified 01/10/17 12:55 NKA Allergy Uncoded 05/18/16 14:50 History of Present Illness: 56 y/o man with a long hx. of heroin & alcohol dependence is admitted for detox. Pt. has been in previous detox, denies significant sobriety & drug free. Exam Limitations: No Limitations - Ebola screening Have you traveled outside of the country in the last 21 days: No Have you had contact with anyone from an Ebola affected area: No Have you been sick,other than usual withdrawal symptoms: No Do you have a fever: No - Review of Systems Constitutional: Diaphoresis EENT: reports: No Symptoms Reported Respiratory: reports: Cough Cardiac: reports: No Symptoms Reported GI: reports: Nausea, Abdominal cramping : reports: No Symptoms Reported Musculoskeletal: reports: Back Pain, Joint Pain Integumentary: reports: Sweating Neuro: reports: Tingling, Tremors Endocrine: reports: No Symptoms Reported Hematology: reports: No Symptoms Reported Psychiatric: reports: No Sypmtoms Reported Other Systems: Reviewed and Negative Patient History - Patient Medical History Hx Anemia: No Hx Asthma: No Hx Chronic Obstructive Pulmonary Disease (COPD): No Hx Cancer: No Hx Cardiac Disorders: No Hx Congestive Heart Failure: No Hx Hypertension: No Hx Hypercholesterolemia: No Hx Pacemaker: No HX Cerebrovascular Accident: No Hx Seizures: No Hx Dementia: No Hx Diabetes: No Hx Gastrointestinal Disorders: No Hx Liver Disease: No Hx Genitourinary Disorders: No Hx Sexually Transmitted Disorders: No Hx Renal Disease (ESRD): No Hx Thyroid Disease: No Hx Human Immunodeficiency Virus (HIV): Yes Hx Hepatitis C: Yes (NOT YET TREATED) Hx Depression: Yes (ON MED) Hx Suicide Attempt: No (DENIES) Hx Bipolar Disorder: Yes Hx Schizophrenia: No - Patient Surgical History Past Surgical History: Yes Hx Neurologic Surgery: No Hx Cataract Extraction: No Hx Cardiac Surgery: No Hx Lung Surgery: No Hx Breast Surgery: No Hx Breast Biopsy: No Hx Abdominal Surgery: No Hx Appendectomy: No Hx Cholecystectomy: No Hx Genitourinary Surgery: No Hx Section: No Hx Orthopedic Surgery: Yes (b/l hip replacement) Other Surgical History: SPLEENECTOMY 1981 Anesthesia Reaction: No - PPD History Date: 05/20/16 Results: 0 mm PPD to be Administered?: No - Smoking Cessation Smoking history: Current every day smoker Have you smoked in the past 12 months: Yes Aproximately how many cigarettes per day: 6 Hx Chewing Tobacco Use: No Initiated information on smoking cessation: Yes 'Breaking Loose' booklet given: 02/19/17 - Substance & Tx. History Hx Alcohol Use: Yes Hx Substance Use: Yes Substance Use Type: Alcohol, Cocaine, Heroin Hx Substance Use Treatment: Yes (Detox at [facility] 05/2016) - Substances Abused Alcohol Route: Oral Frequency: Daily Amount used: Vodka 3 pints Age of first use: 13 Date of Last Use: 02/19/17 Heroin Route: Inhalation Frequency: Daily Amount used: 10 bags Age of first use: 45 Date of Last Use: 02/19/17 Cocaine Route: Inhalation Frequency: Daily Amount used: 1 gm Age of first use: 45 Date of Last Use: 02/18/17 Family Disease History - Family Disease History Family Disease History: Other: Father (Alcohol) Admission Physical Exam [facility] - Vital Signs Vital Signs: Vital Signs - 24 hr 02/19/17 16:41 Temperature 96.4 F L Pulse Rate 67 Respiratory 20 Rate Blood Pressure 143/81 - Physical General Appearance: Yes: Tremorous, Irritable, Sweating, Anxious HEENTM: Yes: Within Normal Limits Respiratory: Yes: Chest Non-Tender, Lungs Clear, Normal Breath Sounds Neck: Yes: Supple Breast: Yes: Breast Exam Deferred Cardiology: Yes: Regular Rhythm, Regular Rate, S1, S2 Abdominal: Yes: Normal Bowel Sounds, Non Tender, Soft Genitourinary: Yes: Within Normal Limits Back: Yes: Within Normal Limits Musculoskeletal: Yes: Within Normal Limits Extremities: Yes: Tremors Neurological: Yes: Fully Oriented, Alert Integumentary: Yes: Diaphoresis Lymphatic: Yes: Within Normal Limits - Diagnostic (1) Alcohol dependence with uncomplicated withdrawal Current Visit: Yes Status: Acute (2) Opioid dependence with withdrawal Current Visit: Yes Status: Acute (3) AIDS Current Visit: Yes Status: Acute Cleared for Admission [facility] - Detox or Rehab [facility] Level of Care: Medically Managed Detox Regimen/Protocol: Methadone/Librium [facility] Breath Alcohol Content Breath Alcohol Content: 0 Urine Drug Screen - Results Drug Screen Negative: No Urine Drug Screen Results: LEISA-Cocaine, OPI-Opiates, BZO-Benzodiazepines
[2017-02-19] MEDS ORDERED: NICOTINE POLACRILEX 2 MG GUM BC PRN (18:59)
[2017-02-19] MEDS ORDERED: hydrOXYzine PAMOATE 50 MG CAPSULE (FP) PO PRN (18:59)
[2017-02-19] MEDS ORDERED: MAG HYDROX/AL HYDROX/SIMETH 30 ML UNIT-DOSE CUP PO PRN (18:59)
[2017-02-19] MEDS ORDERED: MAGNESIUM CITRATE 300 ML BOTTLE PO PRN (18:59)
[2017-02-19] MEDS ORDERED: ACETAMINOPHEN 325 MG TABLET (FP) PO PRN (18:59)
[2017-02-19] MEDS ORDERED: LOPERAMIDE HCL 2 MG CAPSULE PO PRN (18:59)
[2017-02-19] MEDS ORDERED: IBUPROFEN 400 MG TABLET (FP) PO PRN (18:59)
[2017-02-19] MEDS ORDERED: METHADONE HCL 10 MG TABLET (FOR DETOX USE ONLY) PO ONE ×2 (18:59→23:00)
[2017-02-19] MEDS ORDERED: diazePAM 5 MG TABLET PO ONE (18:59)
[2017-02-19] MEDS ORDERED: P-EPHED 60MG/TRIPROLIDI 2.5MG TABLET PO PRN (18:59)
[2017-02-19] MEDS ORDERED: guaiFENesin/D-METHORPHAN HB 10 ML UNIT-DOSE CUPS PO PRN (18:59)
[2017-02-19] MEDS ORDERED: MAGNESIUM HYDROX 2400MG/30ML ORAL SUSPENSION 30 ML CUP PO PRN (18:59)
[2017-02-19] MEDS ORDERED: diphenhydrAMINE HCL 50 MG CAPSULE PO PRN (18:59)
[2017-02-19] MEDS ORDERED: MENTHOL/PHENOL 1 EACH UD MM PRN (18:59)
[2017-02-19] MEDS: NICOTINE 14 MG/24 HOURS TOPICAL PATCH TD SCH (20:07)
[2017-02-19] MEDS: diazePAM 5 MG TABLET PO SCH (22:59)
[2017-02-20] MEDS: diazePAM 5 MG TABLET PO SCH ×3 (05:45→22:25)
[2017-02-20] MEDS ORDERED: METHADONE HCL 10 MG TABLET (FOR DETOX USE ONLY) PO SCH (10:00)
[2017-02-20 10:08] LABS: MCH 29.7 pg (25.7-33.7); MCHC 31.7 g/dl (32.0-35.9); MEAN CELL VOLUME 93.5 fl (80-96); MEAN PLT VOLUME 10.2 fl (7.5-11.1); PLATELET COUNT 229 K/MM3 (134-434); RDW 14.4 % (11.9-15.9); WHITE BLOOD COUNT 8.2 K/mm3 (4.0-10.0)
[2017-02-20] MEDS: PRENATAL VITAMINS W/ FOLIC ACID TABLET (FP) PO SCH (10:46)
[2017-02-20] MEDS: EMTRICITABINE 200MG/TENOFOVIR 300MG PO SCH (10:46)
[2017-02-20] MEDS: RITONAVIR 100 MG TABLET PO SCH (10:46)
[2017-02-20] MEDS: ATAZANAVIR SO4 300 MG CAPSULE PO SCH (10:47)
[2017-02-20] MEDS: NICOTINE 14 MG/24 HOURS TOPICAL PATCH TD SCH (10:49)
[2017-02-20] MEDS: diazePAM 5 MG TABLET PO PRN ×2 (10:50→16:54)
[2017-02-20 10:54] LABS: ALBUMIN 2.6 g/dl (3.4-5.0); ALK PHOS 88 U/L (45-117); ANION GAP 6 (8-16); BILIRUBIN,TOTAL 0.5 mg/dL (0.2-1.0); CALCIUM 8.3 mg/dL (8.5-10.1); CO2 27 mmol/L (21-32); CREATININE 0.7 mg/dL (0.7-1.3); GLUCOSE,RANDOM 81 mg/dL (74-106); SGOT/AST 52 U/L (15-37); SGPT/ALT 38 U/L (12-78); TOT PROT 6.1 g/dl (6.4-8.2)
--- NOTE | 2017-02-20 11:38 | PN ---
[facility] CIWA - CIWA Score Nausea/Vomitin Muscle Tremors: 3 Anxiety: 3 Agitation: 2 Paroxysmal Sweats: 1-Minimal Palms Moist Orientation: 0-Oriented Tacttile Disturbances: 1-Very Mild Itch/Numbness Auditory Disturbances: 1-Very Mild Visual Disturbances: 0-None Headache: 2-Mild CIWA-Ar Total Score: 16 [facility]HS COWS - Scale Resting Pulse: 0= NE 80 or Below Sweatin= Chills/Flushing Restless Observation: 3= Extraneous Movement Pupil Size: 1= Pupils >than Normal Bone or Joint Aches: 2= Severe Diffuse Aches Runny Nose/ Eye Tearin= Runny Nose/Eyes GI Upset > 30mins: 2= Nausea/Diarrhea Tremor Observation of Outstretched Hands: 2= Slight Tremor Visible Yawning Observation: 1= 1-2x During Session Anxiety or Irritability: 2=Irritable/Anxious Goose Flesh Skin: 0=Smooth Skin COWS Score: 16 [facility] Progress Note (SOAP) Subjective: ALERT,IRRITABLE,ANXIOUS,INTERRUPTED SLEEP,TREMOR,PAIN IN THE BODY AND BACK Objective: 02/20/17 11:35 Vital Signs Temperature 98.2 F 02/20/17 09:45 Pulse Rate 67 02/20/17 09:45 Respiratory Rate 20 02/20/17 09:45 Blood Pressure 126/80 02/20/17 09:45 O2 Sat by Pulse Oximetry (%) EKG SINUS BRADYCARDIA 59/MIN,INVERTED T IN V3 NO CHEST PAIN,NO SOB NO DIZZINESS Laboratory Last Values WBC 8.2 K/mm3 (4.0-10.0) 02/20/17 07:00 RBC 4.16 M/mm3 (4.00-5.60) 02/20/17 07:00 Hgb 12.3 GM/dL (11.7-16.9) 02/20/17 07:00 Hct 38.9 % (35.4-49) 02/20/17 07:00 MCV 93.5 fl (80-96) 02/20/17 07:00 MCH 29.7 pg (25.7-33.7) 02/20/17 07:00 MCHC 31.7 g/dl (32.0-35.9) L 02/20/17 07:00 RDW 14.4 % (11.9-15.9) 02/20/17 07:00 Plt Count 229 K/MM3 (134-434) D 02/20/17 07:00 MPV 10.2 fl (7.5-11.1) 02/20/17 07:00 Sodium 145 mmol/L (136-145) 02/20/17 07:00 Potassium 3.6 mmol/L (3.5-5.1) 02/20/17 07:00 Chloride 112 mmol/L (98-107) H 02/20/17 07:00 Carbon Dioxide 27 mmol/L (21-32) 02/20/17 07:00 Anion Gap 6 (8-16) L 02/20/17 07:00 BUN 10 mg/dL (7-18) D 02/20/17 07:00 Creatinine 0.7 mg/dL (0.7-1.3) D 02/20/17 07:00 Creat Clearance w eGFR > 60 (>60) 02/20/17 07:00 Random Glucose 81 mg/dL (74-106) 02/20/17 07:00 Calcium 8.3 mg/dL (8.5-10.1) L 02/20/17 07:00 Total Bilirubin 0.5 mg/dL (0.2-1.0) 02/20/17 07:00 AST 52 U/L (15-37) H D 02/20/17 07:00 ALT 38 U/L (12-78) D 02/20/17 07:00 Alkaline Phosphatase 88 U/L (45-117) D 02/20/17 07:00 Total Protein 6.1 g/dl (6.4-8.2) L 02/20/17 07:00 Albumin 2.6 g/dl (3.4-5.0) L 02/20/17 07:00 Assessment: 02/20/17 11:38 WITHDRAWAL SYMPTOM Plan: CONTINUE DETOX,ENSURE PLUS 120 MLS PO BID
--- NOTE | 2017-02-20 12:43 | EKG ---
Test Reason : Blood Pressure : / mmHG Vent. Rate : 059 BPM Atrial Rate : 059 BPM P-R Int : 128 ms QRS Dur : 098 ms QT Int : 448 ms P-R-T Axes : 059 -51 -23 degrees QTc Int : 443 ms SINUS BRADYCARDIA LOW VOLTAGE QRS LEFT ANTERIOR FASCICULAR BLOCK CANNOT RULE OUT ANTERIOR INFARCT , AGE UNDETERMINED ABNORMAL ECG WHEN COMPARED WITH ECG OF 10-JAN-2017 14:39, T WAVE INVERSION NOW EVIDENT IN ANTERIOR LEADS VENT. RATE HAS DECREASED Confirmed by KENISHA FRANCIS, STEWART ([id number]) on 02/20/2017 12:43:23 PM Referred By: Doris Aguirre Confirmed By:STEWART DE MD
[2017-02-20] MEDS: PATIENT'S OWN MEDICATION (NON-FORMULARY) (Dolutegravir Sodium 50 MG) PO SCH (14:52)
--- NOTE | 2017-02-20 15:39 | CONSULT ---
[facility] Psychiatric Consult - Data Date of interview: 02/20/17 Admission source: [facility] Identifying data: Another admission to [facility] for this 56 y/o male seeking detox treatment on for alcohol,heroin and cocaine dependence.Patient is single without children,domiciled,unemployed,disabled and supported on food stamps. Substance Abuse History: Confirmed by patient in this encounter. Smoking Cessation. Smoking history: Current every day smoker. Have you smoked in the past 12 months: Yes. Aproximately how many cigarettes per day: 6. Hx Chewing Tobacco Use: No. Initiated information on smoking cessation: Yes. 'Breaking Loose' booklet given: 02/19/17. - Substance & Tx. History. Hx Alcohol Use: Yes. Hx Substance Use: Yes. Substance Use Type: Alcohol, Cocaine, Heroin. Hx Substance Use Treatment: Yes (Detox at [facility] 05/2016). - Substances Abused. Alcohol. Route: Oral. Frequency: Daily. Amount used: Vodka 3 pints. Age of first use: 13. Date of Last Use: 02/19/17. Heroin. Route: Inhalation. Frequency: Daily. Amount used: 10 bags. Age of first use: 45. Date of Last Use: 02/19/17. Cocaine. Route: Inhalation. Frequency: Daily. Amount used : 1 gm. Age of first use: 45. Date of Last Use: 02/18/17 Medical History: HIV infection since 1981,hepatitis C,neuropathy,bilateral hip replacement and a history of splenectomy.Patient ambulates with a cane. Psychiatric History: Patient denies history of psychiatric hospitalizations.He, however,endorses Bipolar Disorder and MDD.Mr Luna is currently receiving outpatient psychiatric services at the [facility] clinic in the [place].Medications consist of wellbutrin 150 mg po bid.Patient reports that he has continued to receive this medication during his recent incarceration ( released on December) and that he returned to the community with an adequate supply of medication (ran out of wellbutrin two days ago according to self-report).No history of suicide attempts. Physical/Sexual Abuse/Trauma History: Patient denies history of abuse. Additional Comment: Urine Drug Screen Results: LEISA-Cocaine, OPI-Opiates, BZO- Benzodiazepines.Noted. Mental Status Exam - Mental Status Exam Alert and Oriented to: Time, Place, Person Cognitive Function: Grossly Intact Patient Appearance: Unkempt, Disheveled Mood: Hopeful, Euthymic Affect: Appropriate, Normal Range Patient Behavior: Fatigued, Appropriate, Cooperative Speech Pattern: Clear Voice Loudness: Normal Thought Process: Intact, Goal Oriented Thought Disorder: Not Present Hallucinations: Denies Suicidal Ideation: Denies Homicidal Ideation: Denies Insight/Judgement: Poor Sleep: Fair Appetite: Good Muscle strength/Tone: Normal Gait/Station: Other (ambulates with a cane) Psychiatric Findings - Problem List ([place] 1, 2,3) (1) Alcohol dependence with uncomplicated withdrawal Current Visit: Yes Status: Acute (2) Opioid dependence with withdrawal Current Visit: Yes Status: Acute (3) Cocaine dependence Current Visit: Yes Status: Acute (4) Nicotine dependence Current Visit: Yes Status: Acute Qualifiers: Nicotine product type: cigarettes Substance use status: uncomplicated Qualified Code(s): F17.210 - Nicotine dependence, cigarettes, uncomplicated; F17.210 - Nicotine dependence, cigarettes, uncomplicated (5) Drug-induced mood disorder Current Visit: Yes Status: Acute (6) Depressive disorder Current Visit: Yes Status: Chronic (7) AIDS Current Visit: Yes Status: Chronic (8) Neuropathy, generalized Current Visit: Yes Status: Chronic (9) Use of cane as ambulatory aid Current Visit: Yes Status: Chronic - Initial Treatment Plan Initial Treatment Plan: Psychoeducation.Detoxification.Previous records are reviewed and recent pharmacy claims revisited.Past treatment with bupropion is confirmed.Wellbutrin 75 mg po bid (will titrate).Patient is made aware of potential for seizures.Mr Luna comments that this medication is not only well tolerated but it has been effective in the management of his depressive symptoms.Agrees to the inclusion of wellbutrin in this regimen of medications.Observation.
[2017-02-20] MEDS ORDERED: buPROPion HCL 75 MG TABLET PO SCH ×2 (17:00→22:00)
--- NOTE | 2017-02-21 09:49 | PN ---
S CIWA - CIWA Score Nausea/Vomitin-No Nausea/No Vomiting Muscle Tremors: 4-Moderate,w/Arms Extend Anxiety: 3 Agitation: 3 Paroxysmal Sweats: 3 Orientation: 0-Oriented Tacttile Disturbances: 0-None Auditory Disturbances: 0-None Visual Disturbances: 0-None Headache: 0-None Present CIWA-Ar Total Score: 13 [facility] COWS - Scale Resting Pulse: 1= [place] 81-100 Sweatin=Flushed/Facial Moisture Restless Observation: 1= Difficult to Sit Still Pupil Size: 0= Normal to Room Light Bone or Joint Aches: 2= Severe Diffuse Aches Runny Nose/ Eye Tearin= Nasal Congestion GI Upset > 30mins: 1= Stomach Cramp Tremor Observation of Outstretched Hands: 2= Slight Tremor Visible Yawning Observation: 2= >3x During Session Anxiety or Irritability: 2=Irritable/Anxious Goose Flesh Skin: 0=Smooth Skin COWS Score: 14 B[facility] Progress Note (SOAP) Subjective: irritable agitation sweats shakes Objective: 02/21/17 09:47 Vital Signs Temperature 98.2 F 02/21/17 09:42 Pulse Rate 62 02/21/17 09:42 Respiratory Rate 18 02/21/17 09:42 Blood Pressure 125/69 02/21/17 09:42 O2 Sat by Pulse Oximetry (%) Laboratory Tests 02/20/17 02/20/17 02/20/17 07:00 07:00 07:00 WBC 8.2 RBC 4.16 Hgb 12.3 Hct 38.9 MCV 93.5 MCH 29.7 MCHC 31.7 L RDW 14.4 Plt Count 229 D MPV 10.2 Sodium 145 Potassium 3.6 Chloride 112 H Carbon Dioxide 27 Anion Gap 6 L BUN 10 D Creatinine 0.7 D Creat Clearance w eGFR > 60 Random Glucose 81 Calcium 8.3 L Total Bilirubin 0.5 AST 52 H D ALT 38 D Alkaline Phosphatase 88 D Total Protein 6.1 L Albumin 2.6 L RPR Titer Nonreactive labs pending u/a awake/alert ambulating no acute distress Assessment: 02/21/17 09:48 withdrawals sx Plan: continue detox increase fluids u/a ordered
[2017-02-21] MEDS: METHADONE HCL 5 MG TABLET (FOR DETOX USE ONLY) PO SCH (10:22)
[2017-02-21] MEDS: RITONAVIR 100 MG TABLET PO SCH (10:22)
[2017-02-21] MEDS: ATAZANAVIR SO4 300 MG CAPSULE PO SCH (10:22)
[2017-02-21] MEDS: diazePAM 5 MG TABLET PO SCH ×2 (10:22→23:43)
[2017-02-21] MEDS: PRENATAL VITAMINS W/ FOLIC ACID TABLET (FP) PO SCH (10:22)
[2017-02-21] MEDS: EMTRICITABINE 200MG/TENOFOVIR 300MG PO SCH (10:22)
[2017-02-21] MEDS: buPROPion HCL 75 MG TABLET PO SCH ×2 (10:22→17:52)
[2017-02-21] MEDS: PATIENT'S OWN MEDICATION (NON-FORMULARY) (Dolutegravir Sodium 50 MG) PO SCH (10:23)
[2017-02-21] MEDS: NICOTINE 14 MG/24 HOURS TOPICAL PATCH TD SCH (11:49)
[2017-02-21] MEDS: diazePAM 5 MG TABLET PO PRN ×2 (12:52→22:42)
[2017-02-21 14:02] LABS: URINE APPEARANCE SLCLOUDY; URINE BILIRUBIN NEGATIVE (NEGATIVE); URINE BLOOD NEGATIVE (NEGATIVE); URINE COLOR YELLOW; URINE GLUCOSE (UA) NEGATIVE (NEGATIVE); URINE KETONE NEGATIVE (NEGATIVE); URINE NITRITE NEGATIVE (NEGATIVE); URINE PROTEIN NEGATIVE (NEGATIVE)
[2017-02-21 18:32] LABS: URINE LEUK ESTERASE Negative (NEGATIVE)
--- NOTE | 2017-02-22 09:01 | PN ---
[facility] Progress Note (SOAP) Subjective: irritable agitation anxiety interrupted sleep Objective: 02/22/17 09:04 Vital Signs Temperature 97.8 F 02/22/17 06:25 Pulse Rate 68 02/22/17 06:25 Respiratory Rate 18 02/22/17 06:25 Blood Pressure 122/76 02/22/17 06:25 O2 Sat by Pulse Oximetry (%) aaox3 ambulating no acute distress Assessment: 02/22/17 09:04 withdrawal sx Plan: continue detox increase fluids
[2017-02-22] MEDS: METHADONE HCL 5 MG TABLET (FOR DETOX USE ONLY) PO SCH (10:25)
[2017-02-22] MEDS: diazePAM 5 MG TABLET PO SCH ×2 (10:25→23:25)
[2017-02-22] MEDS: PRENATAL VITAMINS W/ FOLIC ACID TABLET (FP) PO SCH (10:26)
[2017-02-22] MEDS: ATAZANAVIR SO4 300 MG CAPSULE PO SCH (10:26)
[2017-02-22] MEDS: buPROPion HCL 75 MG TABLET PO SCH ×2 (10:27→17:54)
[2017-02-22] MEDS: RITONAVIR 100 MG TABLET PO SCH (10:29)
[2017-02-22] MEDS: EMTRICITABINE 200MG/TENOFOVIR 300MG PO SCH (10:29)
[2017-02-22] MEDS: NICOTINE 14 MG/24 HOURS TOPICAL PATCH TD SCH (10:29)
[2017-02-22] MEDS: PATIENT'S OWN MEDICATION (NON-FORMULARY) (Dolutegravir Sodium 50 MG) PO SCH (11:39)
[2017-02-22] MEDS: diazePAM 5 MG TABLET PO PRN ×2 (13:59→17:54)
--- NOTE | 2017-02-22 14:27 | PN ---
[facility] Progress Note Note: Psychiatry Attending's note : Met with patient. Requests increase of wellbutrin to 150 mg po bid. Mr Luna insists that this has been his dose for years. " It keeps me calm,focused and functional without side-effects." Patient is clearly motivated for care.Reliable. Intervention : Wellbutrin 150 mg po bid Patient is reminded of risk of seizures.
[2017-02-23] MEDS ORDERED: diazePAM 5 MG TABLET PO SCH (10:00)
[2017-02-23] MEDS ORDERED: METHADONE HCL 10 MG TABLET (FOR DETOX USE ONLY) PO SCH (10:00)
[2017-02-23] MEDS: PRENATAL VITAMINS W/ FOLIC ACID TABLET (FP) PO SCH (10:11)
[2017-02-23] MEDS: buPROPion HCL 75 MG TABLET PO SCH ×2 (10:11→17:23)
[2017-02-23] MEDS: ATAZANAVIR SO4 300 MG CAPSULE PO SCH (10:11)
[2017-02-23] MEDS: RITONAVIR 100 MG TABLET PO SCH (10:11)
[2017-02-23] MEDS: PATIENT'S OWN MEDICATION (NON-FORMULARY) (Dolutegravir Sodium 50 MG) PO SCH (10:12)
[2017-02-23] MEDS: NICOTINE 14 MG/24 HOURS TOPICAL PATCH TD SCH (10:12)
[2017-02-23] MEDS: EMTRICITABINE 200MG/TENOFOVIR 300MG PO SCH (10:12)
--- NOTE | 2017-02-23 10:16 | PN ---
[facility] Progress Note (SOAP) Subjective: agitation sweats anxiety Objective: 02/23/17 10:15 Vital Signs Temperature 98.1 F 02/23/17 06:00 Pulse Rate 64 02/23/17 06:00 Respiratory Rate 18 02/23/17 06:00 Blood Pressure 139/87 02/23/17 06:00 O2 Sat by Pulse Oximetry (%) aaox3 ambulating no acute distress Assessment: 02/23/17 10:16 withdrawal sx Plan: continue detox increase fluids d/c in am
[2017-02-24] MEDS ORDERED: METHADONE HCL 5 MG TABLET (FOR DETOX USE ONLY) PO SCH (06:00)
--- NOTE | 2017-02-24 09:19 | DS ---
[facility] Detox Discharge Summary Admission Date: 02/19/17 Discharge Date: 02/24/17 - History Present History: Alcohol Dependence, Cocaine Dependence, Opioid Dependence - Physical Exam Results Vital Signs: Vital Signs Temperature 96.7 F L 02/24/17 06:43 Pulse Rate 60 02/24/17 06:43 Respiratory Rate 16 02/24/17 06:43 Blood Pressure 112/64 02/24/17 06:43 O2 Sat by Pulse Oximetry (%) - Treatment Hospital Course: Detox Protocol Followed, Detoxed Safely, Responded well, Discharged Condition Good, Rehab Referral Accepted - Medication Discharge Medications: Ambulatory Orders Atazanavir [Reyataz -] 300 mg PO DAILY 02/19/17 Dolutegravir Sodium [Tivicay] 50 mg PO DAILY 02/19/17 Emtricitabine/Tenofovir [Truvada -] 1 tab PO DAILY 02/19/17 Ritonavir [Norvir -] 100 mg PO DAILY 02/19/17 Bupropion HCl [Wellbutrin -] 150 mg PO BID #90 tablet 02/20/17 - Diagnosis (1) Alcohol dependence with uncomplicated withdrawal Current Visit: Yes Status: Chronic (2) Cocaine dependence Current Visit: Yes Status: Chronic Qualifiers: Substance use status: uncomplicated Qualified Code(s): F14.20 - Cocaine dependence, uncomplicated; F14.20 - Cocaine dependence, uncomplicated; F14.20 - Cocaine dependence, uncomplicated (3) Nicotine dependence Current Visit: Yes Status: Chronic Qualifiers: Nicotine product type: cigarettes Substance use status: uncomplicated Qualified Code(s): F17.210 - Nicotine dependence, cigarettes, uncomplicated; F17.210 - Nicotine dependence, cigarettes, uncomplicated (4) Opioid dependence with withdrawal Current Visit: Yes Status: Chronic (5) AIDS (acquired immunodeficiency syndrome), CD4 >200 and <500 Current Visit: Yes Status: Chronic - AMA Did Patient Leave Against Medical Advice: No
[2017-02-24] MEDS: ATAZANAVIR SO4 300 MG CAPSULE PO SCH (09:33)
[2017-02-24] MEDS: PRENATAL VITAMINS W/ FOLIC ACID TABLET (FP) PO SCH (09:33)
[2017-02-24] MEDS: buPROPion HCL 75 MG TABLET PO SCH (09:33)
[2017-02-24] MEDS: EMTRICITABINE 200MG/TENOFOVIR 300MG PO SCH (09:33)
[2017-02-24 09:34] VITALS: BP 127/77; PULSE 87; TEMP 97.1
[2017-02-24] MEDS: RITONAVIR 100 MG TABLET PO SCH (09:34)
[2017-02-24] MEDS: PATIENT'S OWN MEDICATION (NON-FORMULARY) (Dolutegravir Sodium 50 MG) PO SCH (09:34)
[2017-02-24] MEDS: NICOTINE 14 MG/24 HOURS TOPICAL PATCH TD SCH (10:15)
== END 2017-02-24 11:55 | disposition home or self-care (01) | DRG 773 ==
LOC: YASAS 12:35 → Y6N 17:38
PROVIDERS: ADMIT Internal Medicine; ATTEND Internal Medicine
PROC: HZ2ZZZZ Detoxification Services for Substance Abuse Treatment (ICD-10-PCS; principal; 2017-02-19)
DX: F11.23 Opioid dependence with withdrawal (principal); F10.230 Alcohol dependence with withdrawal, uncomplicated; F14.20 Cocaine dependence, uncomplicated; F12.20 Cannabis dependence, uncomplicated; F17.210 Nicotine dependence, cigarettes, uncomplicated; F19.24 Other psychoactive substance dependence with psychoactive substance-induced mood disorder; F32.9 Major depressive disorder, single episode, unspecified; B20 Human immunodeficiency virus [HIV] disease; R00.1 Bradycardia, unspecified; G62.9 Polyneuropathy, unspecified; R26.2 Difficulty in walking, not elsewhere classified; Z99.89 Dependence on other enabling machines and devices; Z96.643 Presence of artificial hip joint, bilateral; Z90.81 Acquired absence of spleen
CPT/HCPCS: 36415; 80053; 81003; 85027; 86593; 93005; 93010

== ENCOUNTER 2017-03-28 11:50 | Inpatient (IN) | payer OTHER ==
[2017-03-28 12:06] VITALS: BMI 20.7
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
[2017-03-28] MEDS ORDERED: MAGNESIUM CITRATE 300 ML BOTTLE PO PRN (15:02)
[2017-03-28] MEDS ORDERED: P-EPHED 60MG/TRIPROLIDI 2.5MG TABLET PO PRN (15:02)
[2017-03-28] MEDS ORDERED: guaiFENesin/D-METHORPHAN HB 10 ML UNIT-DOSE CUPS PO PRN (15:02)
[2017-03-28] MEDS ORDERED: MAG HYDROX/AL HYDROX/SIMETH 30 ML UNIT-DOSE CUP PO PRN (15:02)
[2017-03-28] MEDS ORDERED: MAGNESIUM HYDROX 2400MG/30ML ORAL SUSPENSION 30 ML CUP PO PRN (15:02)
[2017-03-28] MEDS ORDERED: NICOTINE POLACRILEX 2 MG GUM BUC PRN (15:02)
[2017-03-28] MEDS ORDERED: ACETAMINOPHEN 325 MG TABLET (FP) PO PRN (15:02)
[2017-03-28] MEDS ORDERED: MENTHOL/PHENOL 1 EACH UD MM PRN (15:02)
[2017-03-28] MEDS ORDERED: IBUPROFEN 400 MG TABLET (FP) PO PRN (15:02)
[2017-03-28] MEDS ORDERED: diazePAM 5 MG TABLET PO ONE (15:15)
[2017-03-28] MEDS ORDERED: METHADONE HCL 10 MG TABLET (FOR DETOX USE ONLY) PO ONE ×2 (15:16→23:00)
[2017-03-28] MEDS: NICOTINE 14 MG/24 HOURS TOPICAL PATCH TD SCH (15:46)
[2017-03-28 17:25] LABS: MCH 28.6 pg (25.7-33.7); MCHC 31.9 g/dl (32.0-35.9); MEAN CELL VOLUME 89.5 fl (80-96); PLATELET COUNT 244 K/MM3 (134-434); RDW 14.8 % (11.9-15.9); WHITE BLOOD COUNT 13.7 K/mm3 (4.0-10.0)
[2017-03-28 17:29] LABS: URINE APPEARANCE SLCLOUDY; URINE BILIRUBIN NEGATIVE (NEGATIVE); URINE BLOOD NEGATIVE (NEGATIVE); URINE COLOR DKYELLOW; URINE GLUCOSE (UA) NEGATIVE (NEGATIVE); URINE KETONE NEGATIVE (NEGATIVE); URINE NITRITE NEGATIVE (NEGATIVE)
[2017-03-28 17:30] LABS: URINE PROTEIN 1+ (NEGATIVE)
[2017-03-28 17:40] LABS: URINE HYALINE CAST 1 /lpf; URINE MUCUS MODERATE; URINE RBC 7; URINE WBC 4
[2017-03-28 18:01] LABS: ALK PHOS 97 U/L (45-117); ANION GAP 8 (8-16); BILIRUBIN,TOTAL 0.5 mg/dL (0.2-1.0); CALCIUM 8.2 mg/dL (8.5-10.1); CO2 25 mmol/L (21-32); CREATININE 0.8 mg/dL (0.7-1.3); GLUCOSE,RANDOM 100 mg/dL (74-106); SGOT/AST 62 U/L (15-37); SGPT/ALT 63 U/L (12-78); TOT PROT 6.6 g/dl (6.4-8.2)
[2017-03-28 19:51] LABS: URINE LEUK ESTERASE Negative (NEGATIVE)
[2017-03-28] MEDS: THIAMINE HCL 100 MG TABLET (FP) PO SCH (22:16)
[2017-03-28] MEDS: diazePAM 5 MG TABLET PO SCH (22:16)
[2017-03-29] MEDS: diazePAM 5 MG TABLET PO SCH ×3 (06:38→23:03)
[2017-03-29] MEDS: diazePAM 5 MG TABLET PO PRN (07:34)
[2017-03-29] MEDS ORDERED: METHADONE HCL 10 MG TABLET (FOR DETOX USE ONLY) PO SCH (10:00)
[2017-03-29] MEDS: PRENATAL VITAMINS W/ FOLIC ACID TABLET (FP) PO SCH (10:33)
[2017-03-29] MEDS: NICOTINE 14 MG/24 HOURS TOPICAL PATCH TD SCH (10:34)
--- NOTE | 2017-03-29 10:36 | CONSULT ---
[facility] Psychiatric Consult - Data Date of interview: 03/29/17 Admission source: [facility] Identifying data: One of multiple admissions to [facility] for this 56 y/o male seeking detox treatment on for alcohol,heroin and cocaine dependence.Patient is single without children,domiciled,unemployed, disabled and supported on food stamps. Substance Abuse History: Active use of alcohol,cocaine and heroin as per self- report. Smoking history: Current every day smoker. Have you smoked in the past 12 months: Yes. Aproximately how many cigarettes per day: 7. Hx Chewing Tobacco Use: No. Initiated information on smoking cessation: Yes. 'Breaking Loose' booklet given: 03/28/17. - Substance & Tx. History. Hx Alcohol Use: Yes (VODKA). Hx Substance Use: Yes (HEROIN/COCAINE). Substance Use Type: Alcohol, Cocaine, Heroin. Hx Substance Use Treatment: Yes (LAST TX AT [facility]). - Substances Abused. Heroin. Route: Inhalation. Frequency: Daily. Amount used: 8-10 bags. Age of first use: 35. Date of Last Use: . Cocaine. Route: Inhalation. Frequency: 3-6 times per week. Amount used: $100. Age of first use: 19. Date of Last Use: 03/26/17. Alcohol- vodka. Route: Oral. Frequency: Daily. Amount used: 3 pts. Age of first use: 13. Date of Last Use: 03/27/17 Medical History: HIV infection since 1981,hepatitis C,neuropathy,bilateral hip replacement and a history of splenectomy.Patient ambulates with a cane. Psychiatric History: No history of psychiatric hospitalizations.Patient reports the diagnoses of MDD and Bipolar Disorder.Mr Luna gets OPD psychiatric services at [facility] ([place]).Medications : wellbutrin 150 mg po bid.Chronically non-adherent to medications.No history of suicide attempts. Physical/Sexual Abuse/Trauma History: Patient denies history of abuse. Additional Comment: Urine Drug Screen Results: LEISA-Cocaine, OPI-Opiates, BZO- Benzodiazepines.Noted. Mental Status Exam - Mental Status Exam Alert and Oriented to: Time, Place, Person Cognitive Function: Good Patient Appearance: Well Groomed Mood: Hopeful, Euthymic Affect: Appropriate, Normal Range Patient Behavior: Appropriate, Cooperative Speech Pattern: Clear Voice Loudness: Normal Thought Process: Goal Oriented Thought Disorder: Not Present Hallucinations: Denies Suicidal Ideation: Denies Homicidal Ideation: Denies Insight/Judgement: Poor Sleep: Poorly, Difficulty falling asleep Appetite: Good Muscle strength/Tone: Normal Gait/Station: Other (walks with a cane) Psychiatric Findings - Problem List ([place] 1, 2,3) (1) Opioid dependence with withdrawal Current Visit: Yes Status: Acute (2) Alcohol dependence with uncomplicated withdrawal Current Visit: Yes Status: Acute (3) Cocaine dependence Current Visit: Yes Status: Acute Qualifiers: Substance use status: uncomplicated Qualified Code(s): F14.20 - Cocaine dependence, uncomplicated (4) Nicotine dependence Current Visit: Yes Status: Acute Qualifiers: Nicotine product type: cigarettes Substance use status: in withdrawal Qualified Code(s): F17.213 - Nicotine dependence, cigarettes, with withdrawal (5) Drug-induced mood disorder Current Visit: Yes Status: Acute (6) Depressive disorder Current Visit: Yes Status: Chronic - Initial Treatment Plan Initial Treatment Plan: Psychoeducation.Sleep hygiene.Detoxification in progress.Medications : wellbutrin 100 mg po bid.Side effects/benefits discussed with patient.He agrees with this careplan.Observation.
[2017-03-29] MEDS ORDERED: buPROPion HCL 100 MG TABLET PO ONE (11:10)
--- NOTE | 2017-03-29 11:52 | PN ---
S CIWA - CIWA Score Nausea/Vomitin-No Nausea/No Vomiting Muscle Tremors: 4-Moderate,w/Arms Extend Anxiety: 4-Mod. Anxious/Guarded Agitation: 3 Paroxysmal Sweats: 3 Orientation: 0-Oriented Tacttile Disturbances: 1-Very Mild Itch/Numbness Auditory Disturbances: 0-None Visual Disturbances: 1-Very Mild Sensitivity Headache: 3-Moderate CIWA-Ar Total Score: 19 BHS COWS - Scale Resting Pulse: 0= [place] 80 or Below Sweatin= Chills/Flushing Restless Observation: 1= Difficult to Sit Still Pupil Size: 0= Normal to Room Light Bone or Joint Aches: 2= Severe Diffuse Aches Runny Nose/ Eye Tearin= None GI Upset > 30mins: 1= Stomach Cramp Tremor Observation of Outstretched Hands: 2= Slight Tremor Visible Yawning Observation: 0= None Anxiety or Irritability: 2=Irritable/Anxious Goose Flesh Skin: 3=Piloerection COWS Score: 12 S Progress Note (SOAP) Subjective: H/A, Sweating, Tremors, Body Aches, Tremors, Anxious. Objective: PT. A & O X 3, OBSERVED AMBULATING ON UNIT. NO ACUTE DISTRESS. 03/29/17 11:50 Vital Signs Temperature 97.7 F 03/29/17 09:29 Pulse Rate 72 03/29/17 09:29 Respiratory Rate 18 03/29/17 09:29 Blood Pressure 123/78 03/29/17 09:29 O2 Sat by Pulse Oximetry (%) Laboratory Tests 03/28/17 03/28/17 03/28/17 15:00 15:00 15:00 WBC 13.7 H D RBC 4.09 Hgb 11.7 Hct 36.6 MCV 89.5 MCH 28.6 MCHC 31.9 L RDW 14.8 Plt Count 244 MPV 11.0 Sodium 140 Potassium 4.0 Chloride 107 Carbon Dioxide 25 Anion Gap 8 BUN 15 D Creatinine 0.8 Creat Clearance w eGFR > 60 Random Glucose 100 D Calcium 8.2 L Total Bilirubin 0.5 AST 62 H ALT 63 D Alkaline Phosphatase 97 Total Protein 6.6 Albumin 3.0 L Urine Color Urine Appearance Urine pH Ur Specific [place] Urine Protein Urine Glucose (UA) Urine Ketones Urine Blood Urine Nitrite Urine Bilirubin Urine Urobilinogen Ur Leukocyte Esterase Urine WBC (Auto) Urine RBC (Auto) Ur Epithelial Cells Hyaline Casts Urine Mucus RPR Titer Nonreactive 03/28/17 17:00 WBC RBC Hgb Hct MCV MCH MCHC RDW Plt Count MPV Sodium Potassium Chloride Carbon Dioxide Anion Gap BUN Creatinine Creat Clearance w eGFR Random Glucose Calcium Total Bilirubin AST ALT Alkaline Phosphatase Total Protein Albumin Urine Color Dkyellow Urine Appearance Slcloudy Urine pH 6.0 Ur Specific [place] 1.017 Urine Protein 1+ H Urine Glucose (UA) Negative Urine Ketones Negative Urine Blood Negative Urine Nitrite Negative Urine Bilirubin Negative Urine Urobilinogen 2.0 Ur Leukocyte Esterase Negative Urine WBC (Auto) 4 Urine RBC (Auto) 7 Ur Epithelial Cells Rare Hyaline Casts 1 Urine Mucus Moderate RPR Titer LABS NOTED. Assessment: 03/29/17 11:50 WITHDRAWAL SYMPTOMS. Plan: CONTINUED DETOX. REPEAT UA FOR ADMISSION ABNORMALITIES. INCREASE DAILY PO FLUID INTAKE.
--- NOTE | 2017-03-29 12:14 | EKG ---
Test Reason : Blood Pressure : / mmHG Vent. Rate : 065 BPM Atrial Rate : 065 BPM P-R Int : 132 ms QRS Dur : 100 ms QT Int : 442 ms P-R-T Axes : 063 -53 -18 degrees QTc Int : 459 ms NORMAL SINUS RHYTHM LEFT ANTERIOR FASCICULAR BLOCK ABNORMAL ECG WHEN COMPARED WITH ECG OF 19-FEB-2017 19:22, T WAVE INVERSION NO LONGER EVIDENT IN ANTERIOR LEADS Confirmed by PEREZ AREVALO MD ([id number]) on 03/29/2017 12:13:47 PM Referred By: Confirmed By:PEREZ AREVALO MD
[2017-03-29] MEDS: buPROPion HCL 100 MG TABLET PO SCH (17:57)
[2017-03-29 22:32] LABS: URINE APPEARANCE CLOUDY; URINE BILIRUBIN NEGATIVE (NEGATIVE); URINE BLOOD NEGATIVE (NEGATIVE); URINE COLOR YELLOW; URINE GLUCOSE (UA) NEGATIVE (NEGATIVE); URINE KETONE NEGATIVE (NEGATIVE); URINE NITRITE NEGATIVE (NEGATIVE); URINE PROTEIN NEGATIVE (NEGATIVE); URINE UROBILINOGEN NEGATIVE mg/dL (0.2-1.0)
[2017-03-29] MEDS: THIAMINE HCL 100 MG TABLET (FP) PO SCH (23:03)
[2017-03-30] MEDS: diazePAM 5 MG TABLET PO PRN ×2 (07:37→15:29)
[2017-03-30] MEDS: PRENATAL VITAMINS W/ FOLIC ACID TABLET (FP) PO SCH (10:48)
[2017-03-30] MEDS: diazePAM 5 MG TABLET PO SCH ×2 (10:48→22:22)
[2017-03-30] MEDS: METHADONE HCL 5 MG TABLET (FOR DETOX USE ONLY) PO SCH (10:49)
[2017-03-30] MEDS: buPROPion HCL 100 MG TABLET PO SCH ×2 (10:49→18:10)
[2017-03-30] MEDS: NICOTINE 14 MG/24 HOURS TOPICAL PATCH TD SCH (10:49)
[2017-03-30 11:02] LABS: URINE LEUK ESTERASE Negative (NEGATIVE)
--- NOTE | 2017-03-30 19:27 | PN ---
S CIWA - CIWA Score Nausea/Vomitin-No Nausea/No Vomiting Muscle Tremors: 4-Moderate,w/Arms Extend Anxiety: 5 Agitation: 4-Moderately Restless Paroxysmal Sweats: No Perspiration Orientation: 0-Oriented Tacttile Disturbances: 2-Mild Itch/Numbness/Burn Auditory Disturbances: 1-Very Mild Visual Disturbances: 0-None Headache: 0-None Present CIWA-Ar Total Score: 16 BHS COWS - Scale Resting Pulse: 0= [place] 80 or Below Sweatin= Chills/Flushing Restless Observation: 1= Difficult to Sit Still Pupil Size: 0= Normal to Room Light Bone or Joint Aches: 2= Severe Diffuse Aches Runny Nose/ Eye Tearin= None GI Upset > 30mins: 0= None Tremor Observation of Outstretched Hands: 2= Slight Tremor Visible Yawning Observation: 1= 1-2x During Session Anxiety or Irritability: 4=Extreme Anxiety Goose Flesh Skin: 3=Piloerection COWS Score: 14 S Progress Note (SOAP) Subjective: Tremors, Anxious, Sweating, Body Aches. Objective: PT. A & O X 3, OBSERVED AMBULATING ON UNIT. NO ACUTE DISTRESS. 03/30/17 19:25 Vital Signs Temperature 99.2 F 03/30/17 17:13 Pulse Rate 71 03/30/17 17:13 Respiratory Rate 20 03/30/17 17:13 Blood Pressure 127/75 03/30/17 17:13 O2 Sat by Pulse Oximetry (%) Laboratory Tests 03/28/17 03/28/17 03/28/17 15:00 15:00 15:00 WBC 13.7 H D RBC 4.09 Hgb 11.7 Hct 36.6 MCV 89.5 MCH 28.6 MCHC 31.9 L RDW 14.8 Plt Count 244 MPV 11.0 Sodium 140 Potassium 4.0 Chloride 107 Carbon Dioxide 25 Anion Gap 8 BUN 15 D Creatinine 0.8 Creat Clearance w eGFR > 60 Random Glucose 100 D Calcium 8.2 L Total Bilirubin 0.5 AST 62 H ALT 63 D Alkaline Phosphatase 97 Total Protein 6.6 Albumin 3.0 L Urine Color Urine Appearance Urine pH Ur Specific [place] Urine Protein Urine Glucose (UA) Urine Ketones Urine Blood Urine Nitrite Urine Bilirubin Urine Urobilinogen Ur Leukocyte Esterase Urine WBC (Auto) Urine RBC (Auto) Ur Epithelial Cells Hyaline Casts Urine Mucus RPR Titer Nonreactive 03/28/17 03/29/17 17:00 18:33 WBC RBC Hgb Hct MCV MCH MCHC RDW Plt Count MPV Sodium Potassium Chloride Carbon Dioxide Anion Gap BUN Creatinine Creat Clearance w eGFR Random Glucose Calcium Total Bilirubin AST ALT Alkaline Phosphatase Total Protein Albumin Urine Color Dkyellow Yellow Urine Appearance Slcloudy Cloudy Urine pH 6.0 5.0 Ur Specific [place] 1.017 1.024 Urine Protein 1+ H Negative Urine Glucose (UA) Negative Negative Urine Ketones Negative Negative Urine Blood Negative Negative Urine Nitrite Negative Negative Urine Bilirubin Negative Negative Urine Urobilinogen 2.0 Negative Ur Leukocyte Esterase Negative Negative Urine WBC (Auto) 4 Urine RBC (Auto) 7 Ur Epithelial Cells Rare Hyaline Casts 1 Urine Mucus Moderate RPR Titer LABS NOTED. RESULTS OF REPEAT UA NOTED. 03/30/17 19:27 Assessment: 03/30/17 19:25 WITHDRAWAL SYMPTOMS. Plan: CONTINUE DETOX.
[2017-03-30] MEDS: THIAMINE HCL 100 MG TABLET (FP) PO SCH (22:22)
[2017-03-31] MEDS: diazePAM 5 MG TABLET PO PRN (07:24)
[2017-03-31] MEDS: LOPERAMIDE HCL 2 MG CAPSULE PO PRN (08:50)
[2017-03-31] MEDS: METHADONE HCL 5 MG TABLET (FOR DETOX USE ONLY) PO SCH (10:50)
[2017-03-31] MEDS: NICOTINE 14 MG/24 HOURS TOPICAL PATCH TD SCH (10:50)
[2017-03-31] MEDS: PRENATAL VITAMINS W/ FOLIC ACID TABLET (FP) PO SCH (10:50)
[2017-03-31] MEDS: buPROPion HCL 100 MG TABLET PO SCH ×2 (10:50→17:23)
[2017-03-31] MEDS: diazePAM 5 MG TABLET PO SCH ×2 (10:50→22:38)
--- NOTE | 2017-03-31 16:11 | PN ---
BHS Progress Note (SOAP) Subjective: Tremors, Anxious, Interrupted Sleep, Stomach Cramping, Diarrhea. Objective: PT. A & O X 3, OBSERVED AMBULATING ON UNIT. NO ACUTE DISTRESS. 03/31/17 16:09 Vital Signs Temperature 99.3 F 03/31/17 13:50 Pulse Rate 81 03/31/17 13:50 Respiratory Rate 20 03/31/17 13:50 Blood Pressure 122/80 03/31/17 13:50 O2 Sat by Pulse Oximetry (%) Laboratory Tests 03/28/17 03/28/17 03/28/17 15:00 15:00 15:00 WBC 13.7 H D RBC 4.09 Hgb 11.7 Hct 36.6 MCV 89.5 MCH 28.6 MCHC 31.9 L RDW 14.8 Plt Count 244 MPV 11.0 Sodium 140 Potassium 4.0 Chloride 107 Carbon Dioxide 25 Anion Gap 8 BUN 15 D Creatinine 0.8 Creat Clearance w eGFR > 60 Random Glucose 100 D Calcium 8.2 L Total Bilirubin 0.5 AST 62 H ALT 63 D Alkaline Phosphatase 97 Total Protein 6.6 Albumin 3.0 L Urine Color Urine Appearance Urine pH Ur Specific [place] Urine Protein Urine Glucose (UA) Urine Ketones Urine Blood Urine Nitrite Urine Bilirubin Urine Urobilinogen Ur Leukocyte Esterase Urine WBC (Auto) Urine RBC (Auto) Ur Epithelial Cells Hyaline Casts Urine Mucus RPR Titer Nonreactive 03/28/17 03/29/17 17:00 18:33 WBC RBC Hgb Hct MCV MCH MCHC RDW Plt Count MPV Sodium Potassium Chloride Carbon Dioxide Anion Gap BUN Creatinine Creat Clearance w eGFR Random Glucose Calcium Total Bilirubin AST ALT Alkaline Phosphatase Total Protein Albumin Urine Color Dkyellow Yellow Urine Appearance Slcloudy Cloudy Urine pH 6.0 5.0 Ur Specific [place] 1.017 1.024 Urine Protein 1+ H Negative Urine Glucose (UA) Negative Negative Urine Ketones Negative Negative Urine Blood Negative Negative Urine Nitrite Negative Negative Urine Bilirubin Negative Negative Urine Urobilinogen 2.0 Negative Ur Leukocyte Esterase Negative Negative Urine WBC (Auto) 4 Urine RBC (Auto) 7 Ur Epithelial Cells Rare Hyaline Casts 1 Urine Mucus Moderate RPR Titer LABS NOTED. Assessment: 03/31/17 16:10 WITHDRAWAL SYMPTOMS. Plan: CONTINUE DETOX.
[2017-03-31] MEDS: THIAMINE HCL 100 MG TABLET (FP) PO SCH (22:38)
[2017-04-01] MEDS: LOPERAMIDE HCL 2 MG CAPSULE PO PRN (07:34)
[2017-04-01] MEDS ORDERED: diazePAM 5 MG TABLET PO SCH (10:00)
[2017-04-01] MEDS ORDERED: METHADONE HCL 10 MG TABLET (FOR DETOX USE ONLY) PO SCH (10:00)
[2017-04-01] MEDS: buPROPion HCL 100 MG TABLET PO SCH ×2 (10:49→17:21)
[2017-04-01] MEDS: PRENATAL VITAMINS W/ FOLIC ACID TABLET (FP) PO SCH (10:49)
[2017-04-01] MEDS: NICOTINE 14 MG/24 HOURS TOPICAL PATCH TD SCH (10:50)
--- NOTE | 2017-04-01 14:05 | PN ---
BHS Progress Note (SOAP) Subjective: Diarrhea, Stomach Cramping, Anxious. Objective: PT. A & O X 2 (UNCERTAIN ABOUT DAY / DATE). PT. OBSERVED AMBULATING ON UNIT. NO ACUTE DISTRESS. 04/01/17 14:03 Vital Signs Temperature 99.3 F 04/01/17 09:07 Pulse Rate 94 H 04/01/17 09:07 Respiratory Rate 18 04/01/17 09:07 Blood Pressure 121/82 04/01/17 09:07 O2 Sat by Pulse Oximetry (%) Laboratory Tests 03/28/17 03/28/17 03/28/17 15:00 15:00 15:00 WBC 13.7 H D RBC 4.09 Hgb 11.7 Hct 36.6 MCV 89.5 MCH 28.6 MCHC 31.9 L RDW 14.8 Plt Count 244 MPV 11.0 Sodium 140 Potassium 4.0 Chloride 107 Carbon Dioxide 25 Anion Gap 8 BUN 15 D Creatinine 0.8 Creat Clearance w eGFR > 60 Random Glucose 100 D Calcium 8.2 L Total Bilirubin 0.5 AST 62 H ALT 63 D Alkaline Phosphatase 97 Total Protein 6.6 Albumin 3.0 L Urine Color Urine Appearance Urine pH Ur Specific [place] Urine Protein Urine Glucose (UA) Urine Ketones Urine Blood Urine Nitrite Urine Bilirubin Urine Urobilinogen Ur Leukocyte Esterase Urine WBC (Auto) Urine RBC (Auto) Ur Epithelial Cells Hyaline Casts Urine Mucus RPR Titer Nonreactive 03/28/17 03/29/17 17:00 18:33 WBC RBC Hgb Hct MCV MCH MCHC RDW Plt Count MPV Sodium Potassium Chloride Carbon Dioxide Anion Gap BUN Creatinine Creat Clearance w eGFR Random Glucose Calcium Total Bilirubin AST ALT Alkaline Phosphatase Total Protein Albumin Urine Color Dkyellow Yellow Urine Appearance Slcloudy Cloudy Urine pH 6.0 5.0 Ur Specific [place] 1.017 1.024 Urine Protein 1+ H Negative Urine Glucose (UA) Negative Negative Urine Ketones Negative Negative Urine Blood Negative Negative Urine Nitrite Negative Negative Urine Bilirubin Negative Negative Urine Urobilinogen 2.0 Negative Ur Leukocyte Esterase Negative Negative Urine WBC (Auto) 4 Urine RBC (Auto) 7 Ur Epithelial Cells Rare Hyaline Casts 1 Urine Mucus Moderate RPR Titer LABS NOTED. Assessment: 04/01/17 14:03 WITHDRAWAL SYMPTOMS. Plan: CONTINUE DETOX. INCREASE DAILY PO FLUID INTAKE.
[2017-04-01 22:27] VITALS: BP 117/78; PULSE 72; TEMP 98
[2017-04-01] MEDS: THIAMINE HCL 100 MG TABLET (FP) PO SCH (22:29)
[2017-04-02] MEDS ORDERED: METHADONE HCL 5 MG TABLET (FOR DETOX USE ONLY) PO SCH (06:00)
--- NOTE | 2017-04-02 17:22 | DS ---
[facility] Detox Discharge Summary Admission Date: 03/28/17 Discharge Date: 04/02/17 - History Present History: Alcohol Dependence, Cocaine Dependence, Opioid Dependence Pertinent Past History: Hepatitis C HIV PPD Positive - Physical Exam Results Vital Signs: Vital Signs Temperature 98.0 F 04/01/17 22:25 Pulse Rate 72 04/01/17 22:25 Respiratory Rate 18 04/02/17 03:22 Blood Pressure 117/78 04/01/17 22:25 O2 Sat by Pulse Oximetry (%) Pertinent Admission Physical Exam Findings: Withdrawal symptoms - Treatment Hospital Course: Detox Protocol Followed, Detoxed Safely, Responded well, Discharged Condition Good - Medication Discharge Medications: Ambulatory Orders Bupropion HCl [Wellbutrin -] 100 mg PO BID #60 tablet 02/24/17 Bupropion HCl [Wellbutrin -] 100 mg PO BID #60 tablet 03/29/17 - Diagnosis (1) Hepatitis C Status: Chronic (2) Alcohol dependence with uncomplicated withdrawal Status: Acute (3) Cocaine dependence Status: Chronic Qualifiers: Substance use status: uncomplicated Qualified Code(s): F14.20 - Cocaine dependence, uncomplicated (4) Nicotine dependence Status: Chronic Qualifiers: Nicotine product type: cigarettes Substance use status: in withdrawal Qualified Code(s): F17.213 - Nicotine dependence, cigarettes, with withdrawal (5) Opioid dependence with withdrawal Status: Acute (6) AIDS (acquired immunodeficiency syndrome), CD4 >200 and <500 Status: Chronic (7) Depressive disorder Status: Chronic - AMA Did Patient Leave Against Medical Advice: No (F/U with PCP within 1 week)
== END 2017-04-02 06:20 | disposition home or self-care (01) | DRG 774 ==
LOC: YASAS 11:50 → Y3N 14:25
PROVIDERS: ADMIT Internal Medicine; ATTEND Internal Medicine
PROC: HZ2ZZZZ Detoxification Services for Substance Abuse Treatment (ICD-10-PCS; principal; 2017-03-28)
DX: F10.230 Alcohol dependence with withdrawal, uncomplicated (principal); F14.20 Cocaine dependence, uncomplicated; F17.213 Nicotine dependence, cigarettes, with withdrawal; F39 Unspecified mood [affective] disorder; B18.2 Chronic viral hepatitis C; B20 Human immunodeficiency virus [HIV] disease; F31.9 Bipolar disorder, unspecified; G62.9 Polyneuropathy, unspecified; R63.4 Abnormal weight loss; Z68.20 Body mass index [BMI] 20.0-20.9, adult
CPT/HCPCS: 36415; 80053; 81003; 81015; 85027; 86593; 93005; 93010

== ENCOUNTER 2017-05-25 12:42 | Inpatient (IN) | payer OTHER ==
[2017-05-25 13:58] VITALS: BMI 22.5
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
[2017-05-25] MEDS ORDERED: ACETAMINOPHEN 325 MG TABLET (FP) PO PRN (15:15)
[2017-05-25] MEDS ORDERED: IBUPROFEN 400 MG TABLET (FP) PO PRN (15:15)
[2017-05-25] MEDS ORDERED: MAG HYDROX/AL HYDROX/SIMETH 30 ML UNIT-DOSE CUP PO PRN (15:15)
[2017-05-25] MEDS ORDERED: MAGNESIUM CITRATE 300 ML BOTTLE PO PRN (15:15)
[2017-05-25] MEDS ORDERED: hydrOXYzine PAMOATE 25 MG CAPSULE (FP) PO PRN (15:15)
[2017-05-25] MEDS ORDERED: P-EPHED 60MG/TRIPROLIDI 2.5MG TABLET PO PRN (15:15)
[2017-05-25] MEDS ORDERED: LOPERAMIDE HCL 2 MG CAPSULE PO PRN (15:15)
[2017-05-25] MEDS ORDERED: NICOTINE POLACRILEX 2 MG GUM BUC PRN (15:15)
[2017-05-25] MEDS ORDERED: MAGNESIUM HYDROX 2400MG/30ML ORAL SUSPENSION 30 ML CUP PO PRN (15:15)
[2017-05-25] MEDS ORDERED: MENTHOL/PHENOL 1 EACH UD MM PRN (15:15)
[2017-05-25] MEDS ORDERED: guaiFENesin/D-METHORPHAN HB 10 ML UNIT-DOSE CUPS PO PRN (15:15)
[2017-05-25] MEDS ORDERED: diazePAM 5 MG TABLET PO ONE (15:42)
[2017-05-25] MEDS ORDERED: METHADONE HCL 10 MG TABLET (FOR DETOX USE ONLY) PO ONE ×2 (15:43→23:00)
--- NOTE | 2017-05-25 16:53 | PN ---
BHS Progress Note Note: received nurse call that the patient has negative opiate utox discontinue opiate
[2017-05-25] MEDS: diazePAM 5 MG TABLET PO SCH ×2 (22:30→22:44)
[2017-05-25] MEDS: THIAMINE HCL 100 MG TABLET (FP) PO SCH ×2 (22:30→22:44)
[2017-05-26 01:23] LABS: URINE APPEARANCE CLEAR; URINE BILIRUBIN NEGATIVE (NEGATIVE); URINE BLOOD NEGATIVE (NEGATIVE); URINE COLOR AMBER; URINE GLUCOSE (UA) NEGATIVE (NEGATIVE); URINE KETONE NEGATIVE (NEGATIVE); URINE LEUK ESTERASE NEGATIVE (NEGATIVE); URINE NITRITE NEGATIVE (NEGATIVE); URINE UROBILINOGEN 4.0 E.U/dl mg/dL (0.2-1.0)
[2017-05-26 01:37] LABS: URINE PROTEIN 2+ (NEGATIVE)
[2017-05-26 02:06] LABS: EPI CELLS RARE /HPF (FEW); URINE BACTERIA RARE /hpf (NONE SEEN); URINE MUCUS RARE
[2017-05-26] MEDS: diazePAM 5 MG TABLET PO SCH ×3 (06:50→22:29)
[2017-05-26] MEDS: EMTRICITABINE 200MG/TENOFOVIR 300MG PO SCH (09:00)
[2017-05-26] MEDS: DOLUTEGRAVIR SODIUM 50 MG TABLET PO SCH (09:00)
[2017-05-26] MEDS ORDERED: METHADONE HCL 10 MG TABLET (FOR DETOX USE ONLY) PO SCH (10:00)
[2017-05-26 10:03] LABS: HEMATOCRIT 40.8 % (35.4-49); HEMOGLOBIN 12.7 GM/dL (11.7-16.9); MCH 27.4 pg (25.7-33.7); MCHC 31.2 g/dl (32.0-35.9); MEAN CELL VOLUME 87.8 fl (80-96); MEAN PLT VOLUME 11.8 fl (7.5-11.1); PLATELET COUNT 189 K/MM3 (134-434); RBC 4.65 M/mm3 (4.00-5.60); RDW 16.3 % (11.9-15.9); WHITE BLOOD COUNT 9.3 K/mm3 (4.0-10.0)
[2017-05-26] MEDS: PRENATAL VITAMINS W/ FOLIC ACID TABLET (FP) PO SCH (10:20)
[2017-05-26] MEDS: ATAZANAVIR SO4 300 MG CAPSULE PO SCH (10:20)
[2017-05-26] MEDS: RITONAVIR 100 MG TABLET PO SCH (10:24)
[2017-05-26] MEDS: diazePAM 5 MG TABLET PO PRN ×2 (10:25→17:22)
[2017-05-26 10:27] LABS: CHLORIDE 111 mmol/L (98-107); POTASSIUM 3.7 mmol/L (3.5-5.1); SODIUM 144 mmol/L (136-145)
[2017-05-26 10:42] LABS: ALBUMIN 3.3 g/dl (3.4-5.0); ALK PHOS 107 U/L (45-117); ANION GAP 9 (8-16); BLOOD UREA NITROGEN 15 mg/dL (7-18); CALCIUM 8.5 mg/dL (8.5-10.1); CO2 24 mmol/L (21-32); CREATININE 0.8 mg/dL (0.7-1.3); GLUCOSE,RANDOM 108 mg/dL (74-106); SGOT/AST 81 U/L (15-37); SGPT/ALT 52 U/L (12-78); TOT PROT 7.3 g/dl (6.4-8.2)
[2017-05-26 10:51] LABS: CHOLESTEROL 156 mg/dL (50-200); HDL CHOLESTEROL 56 mg/dL (40-60); LDL CHOLESTEROL (ONLY SJRH) 95 mg/dL (5-100); TRIGLYCERIDES 112 mg/dL (35-160)
[2017-05-26 10:58] LABS: N-TERMINAL BNP 568.36 pg/ml (5-125)
--- NOTE | 2017-05-26 11:28 | PN ---
S CIWA - CIWA Score Nausea/Vomitin-No Nausea/No Vomiting Muscle Tremors: 4-Moderate,w/Arms Extend Anxiety: 4-Mod. Anxious/Guarded Agitation: 4-Moderately Restless Paroxysmal Sweats: 1-Minimal Palms Moist Orientation: 0-Oriented Tacttile Disturbances: 3-Moderate Itch/Numb/Burn Auditory Disturbances: 0-None Visual Disturbances: 0-None Headache: 0-None Present CIWA-Ar Total Score: 16 BHS COWS - Scale Resting Pulse: 1= [place] 81-100 Sweatin= Chills/Flushing Restless Observation: 3= Extraneous Movement Pupil Size: 2= Moderately Dilated Bone or Joint Aches: 4=Acute Joint/Muscle Pain Runny Nose/ Eye Tearin= Nasal Congestion GI Upset > 30mins: 1= Stomach Cramp Tremor Observation of Outstretched Hands: 2= Slight Tremor Visible Yawning Observation: 2= >3x During Session Anxiety or Irritability: 2=Irritable/Anxious Goose Flesh Skin: 0=Smooth Skin COWS Score: 19 S Progress Note (SOAP) Subjective: ANXIETY,SWEATS.CHILLS, TREMORS,INTERMITTENT SLEEP Objective: 05/26/17 11:28 Vital Signs Temperature 98.7 F 05/26/17 09:59 Pulse Rate 82 05/26/17 09:59 Respiratory Rate 18 05/26/17 09:59 Blood Pressure 126/82 05/26/17 09:59 O2 Sat by Pulse Oximetry (%) Laboratory Last Values WBC 9.3 K/mm3 (4.0-10.0) D 05/26/17 05:45 RBC 4.65 M/mm3 (4.00-5.60) 05/26/17 05:45 Hgb 12.7 GM/dL (11.7-16.9) 05/26/17 05:45 Hct 40.8 % (35.4-49) 05/26/17 05:45 MCV 87.8 fl (80-96) 05/26/17 05:45 MCH 27.4 pg (25.7-33.7) 05/26/17 05:45 MCHC 31.2 g/dl (32.0-35.9) L 05/26/17 05:45 RDW 16.3 % (11.9-15.9) H D 05/26/17 05:45 Plt Count 189 K/MM3 (134-434) D 05/26/17 05:45 MPV 11.8 fl (7.5-11.1) H 05/26/17 05:45 Sodium 144 mmol/L (136-145) 05/26/17 05:45 Potassium 3.7 mmol/L (3.5-5.1) 05/26/17 05:45 Chloride 111 mmol/L (98-107) H 05/26/17 05:45 Carbon Dioxide 24 mmol/L (21-32) 05/26/17 05:45 Anion Gap 9 (8-16) 05/26/17 05:45 BUN 15 mg/dL (7-18) 05/26/17 05:45 Creatinine 0.8 mg/dL (0.7-1.3) 05/26/17 05:45 Creat Clearance w eGFR > 60 (>60) 05/26/17 05:45 Random Glucose 108 mg/dL (74-106) H 05/26/17 05:45 Calcium 8.5 mg/dL (8.5-10.1) 05/26/17 05:45 Total Bilirubin 3.0 mg/dL (0.2-1.0) H D 05/26/17 05:45 AST 81 U/L (15-37) H D 05/26/17 05:45 ALT 52 U/L (12-78) 05/26/17 05:45 Alkaline Phosphatase 107 U/L (45-117) 05/26/17 05:45 B-Natriuretic Peptide 568.36 pg/ml (5-125) H 05/26/17 05:45 Total Protein 7.3 g/dl (6.4-8.2) 05/26/17 05:45 Albumin 3.3 g/dl (3.4-5.0) L 05/26/17 05:45 Triglycerides 112 mg/dL (35-160) 05/26/17 05:45 Cholesterol 156 mg/dL (50-200) 05/26/17 05:45 Total LDL Cholesterol 95 mg/dL (5-100) 05/26/17 05:45 HDL Cholesterol 56 mg/dL (40-60) 05/26/17 05:45 TSH 0.58 uIU/ml (0.358-3.74) 05/26/17 05:45 Urine Color Li 05/26/17 00:01 Urine Appearance Clear 05/26/17 00:01 Urine pH 6.0 (5.0-8.0) 05/26/17 00:01 Ur Specific [place] 1.023 (1.001-1.035) 05/26/17 00:01 Urine Protein 2+ (NEGATIVE) H 05/26/17 00:01 Urine Glucose (UA) Negative (NEGATIVE) 05/26/17 00: Urine Ketones Negative (NEGATIVE) 05/26/17 00: Urine Blood Negative (NEGATIVE) 05/26/17 00: Urine Nitrite Negative (NEGATIVE) 05/26/17 00: Urine Bilirubin Negative (NEGATIVE) 05/26/17 00: Urine Urobilinogen 4.0 e.u/dl mg/dL (0.2-1.0) 05/26/17 00:01 Ur Leukocyte Esterase Negative (NEGATIVE) 05/26/17 00:01 Urine WBC (Auto) None /hpf (3-5) 05/26/17 00:01 Urine RBC (Auto) 1 /hpf (0-3) 05/26/17 00:01 Ur Epithelial Cells Rare /HPF (FEW) 05/26/17 00:01 Urine Bacteria Rare /hpf (NONE SEEN) 05/26/17 00:01 Urine Mucus Rare 05/26/17 00:01 Assessment: 05/26/17 11:28 WITHDRAWAL SX Plan: CONTINUE DETOX
--- NOTE | 2017-05-26 13:02 | CONSULT ---
[facility] Psychiatric Consult - Data Date of interview: 05/26/17 Admission source: [facility] Identifying data: Another admission to [facility] for this 56 y/o male seeking detox treatment on for alcohol,heroin and cocaine dependence.Patient is single without children,domiciled,unemployed,disabled and supported on food stamps. Substance Abuse History: Confirmed by patient in this interview.See current [facility] report for details : Smoking history: Current every day smoker. Have you smoked in the past 12 months: Yes. Aproximately how many cigarettes per day: 7. Hx Chewing Tobacco Use: No. Initiated information on smoking cessation: Yes. 'Breaking Loose' booklet given: 05/25/17. - Substance & Tx. History. Hx Alcohol Use: Yes. Hx Substance Use: Yes. Substance Use Type: Alcohol, Cocaine , Heroin. Hx Substance Use Treatment: Yes ([facility] 03/31 completed). - Substances Abused. Alcohol. Route: Oral. Frequency: Daily. Amount used: vodka(1 1/2 quarts). Age of first use: 13. Date of Last Use: 05/25/17. Heroin. Route: Inhalation. Frequency: Daily. Amount used: 5 bags. Age of first use: 36. Date of Last Use: 05/24/17. Cocaine. Route: Smoking. Frequency: 1-3 times last 30 days. Amount used: $150. Age of first use: 37. Date of Last Use: 05/24/17 Medical History: No changes in medical profle since most recent encounter of : HIV infection since 1981,hepatitis C,neuropathy,bilateral hip replacement and a history of splenectomy. Psychiatric History: In this interview,the patient reports a distant history of one psychiatric hospitalization ([facility]).Diagnosed with MDD.Patient gets OPD psychiatric services at the [facility] ([place]).Still maintained on wellbutrin 150 mg po bid.Mr Luna reports that he last took wellbutrin a week ago (questionable historian).Patient denies history of suicide attempts. Physical/Sexual Abuse/Trauma History: Patient denies. Additional Comment: Urine Drug Screen Results: LEISA-Cocaine, BZO- Benzodiazepines.Noted. Mental Status Exam - Mental Status Exam Alert and Oriented to: Time, Place, Person Cognitive Function: Grossly Intact Patient Appearance: Disheveled (edentulous) Mood: Nervous, Anxious Affect: Mood Congruent Patient Behavior: Fatigued, Cooperative Speech Pattern: Clear, Appropriate Voice Loudness: Normal Thought Process: Intact, Goal Oriented Thought Disorder: Not Present Hallucinations: Denies Insight/Judgement: Poor Sleep: Well Appetite: Good Gait/Station: Normal (at this time ; steady gait ; observed walking without his cane.) Psychiatric Findings - Problem List (Pax 1, 2,3) (1) Opioid dependence with withdrawal Current Visit: Yes Status: Acute (2) Alcohol dependence with uncomplicated withdrawal Current Visit: Yes Status: Acute (3) Cocaine dependence Current Visit: Yes Status: Acute Qualifiers: Substance use status: uncomplicated Qualified Code(s): F14.20 - Cocaine dependence, uncomplicated (4) Nicotine dependence Current Visit: Yes Status: Acute Qualifiers: Nicotine product type: cigarettes Substance use status: in withdrawal Qualified Code(s): F17.213 - Nicotine dependence, cigarettes, with withdrawal (5) Drug-induced mood disorder Current Visit: Yes Status: Acute (6) Depressive disorder Current Visit: No Status: Chronic Comment: As per records.Prescribed bupropion.Chronically non-adherent to medication.Affiliated with [facility] in the [facility]. - Initial Treatment Plan Initial Treatment Plan: Previous records reviewed.Psychoeducation and support provided.Detoxification in progress.Medication : wellbutrin 100 mg po (one dose po NOW).Wellbutrin 150 mg po bid @ 10 AM + 4 PM.Side effects/benefits discussed with the patient.He is reminded of the risk of seizures.No past history of adverse events from that medication (self-report).Patient verbalized his agreement to this careplan.Observation.
[2017-05-26] MEDS ORDERED: buPROPion HCL 100 MG TABLET PO ONE (14:05)
[2017-05-26] MEDS ORDERED: buPROPion HCL 75 MG TABLET PO SCH (16:00)
[2017-05-26] MEDS: HYDROCORTISONE 2.5% TOPICAL CREAM 30 GM TUBE TP SCH (22:29)
[2017-05-26] MEDS: THIAMINE HCL 100 MG TABLET (FP) PO SCH (22:29)
[2017-05-27] MEDS: diazePAM 5 MG TABLET PO PRN (07:06)
[2017-05-27 09:13] VITALS: BP 123/84; PULSE 90; TEMP 99.1
[2017-05-27] MEDS ORDERED: METHADONE HCL 5 MG TABLET (FOR DETOX USE ONLY) PO SCH (10:00)
[2017-05-27] MEDS ORDERED: diazePAM 5 MG TABLET PO SCH (10:00)
[2017-05-27] MEDS: PRENATAL VITAMINS W/ FOLIC ACID TABLET (FP) PO SCH (10:33)
[2017-05-27] MEDS: HYDROCORTISONE 2.5% TOPICAL CREAM 30 GM TUBE TP SCH (10:35)
[2017-05-27] MEDS: ATAZANAVIR SO4 300 MG CAPSULE PO SCH (10:36)
[2017-05-27] MEDS: EMTRICITABINE 200MG/TENOFOVIR 300MG PO SCH (10:36)
[2017-05-27] MEDS: DOLUTEGRAVIR SODIUM 50 MG TABLET PO SCH (10:36)
[2017-05-27] MEDS: RITONAVIR 100 MG TABLET PO SCH (10:36)
--- NOTE | 2017-05-27 11:21 | PN ---
S CIWA - CIWA Score Nausea/Vomitin-Mild Nausea/No Vomiting Muscle Tremors: 3 Anxiety: 3 Agitation: 2 Paroxysmal Sweats: 3 Orientation: 1-Uncertain about Date Tacttile Disturbances: 1-Very Mild Itch/Numbness Auditory Disturbances: 1-Very Mild Visual Disturbances: 1-Very Mild Sensitivity Headache: 2-Mild CIWA-Ar Total Score: 18 BHS COWS - Scale Resting Pulse: 0= MS 80 or Below Sweatin= Chills/Flushing Restless Observation: 1= Difficult to Sit Still Pupil Size: 0= Normal to Room Light Bone or Joint Aches: 2= Severe Diffuse Aches Runny Nose/ Eye Tearin= Nasal Congestion GI Upset > 30mins: 2= Nausea/Diarrhea Tremor Observation of Outstretched Hands: 2= Slight Tremor Visible Yawning Observation: 0= None Anxiety or Irritability: 2=Irritable/Anxious Goose Flesh Skin: 3=Piloerection COWS Score: 14 S Progress Note (SOAP) Subjective: Shakes, sweats, chills,diarrhea, abdominal cramps and anxiety Objective: 05/27/17 11:20 Vital Signs - 8 hr 05/27/17 05/27/17 05/27/17 03:28 06:28 06:41 Temperature 98.1 F Pulse Rate 62 Respiratory 18 18 18 Rate Blood Pressure 118/69 05/27/17 09:13 Temperature 99.1 F Pulse Rate 90 Respiratory 20 Rate Blood Pressure 123/84 Laboratory Last Values WBC 9.3 K/mm3 (4.0-10.0) D 05/26/17 05:45 RBC 4.65 M/mm3 (4.00-5.60) 05/26/17 05:45 Hgb 12.7 GM/dL (11.7-16.9) 05/26/17 05:45 Hct 40.8 % (35.4-49) 05/26/17 05:45 MCV 87.8 fl (80-96) 05/26/17 05:45 MCH 27.4 pg (25.7-33.7) 05/26/17 05:45 MCHC 31.2 g/dl (32.0-35.9) L 05/26/17 05:45 RDW 16.3 % (11.9-15.9) H D 05/26/17 05:45 Plt Count 189 K/MM3 (134-434) D 05/26/17 05:45 MPV 11.8 fl (7.5-11.1) H 05/26/17 05:45 Sodium 144 mmol/L (136-145) 05/26/17 05:45 Potassium 3.7 mmol/L (3.5-5.1) 05/26/17 05:45 Chloride 111 mmol/L (98-107) H 05/26/17 05:45 Carbon Dioxide 24 mmol/L (21-32) 05/26/17 05:45 Anion Gap 9 (8-16) 05/26/17 05:45 BUN 15 mg/dL (7-18) 05/26/17 05:45 Creatinine 0.8 mg/dL (0.7-1.3) 05/26/17 05:45 Creat Clearance w eGFR > 60 (>60) 05/26/17 05:45 Random Glucose 108 mg/dL (74-106) H 05/26/17 05:45 Calcium 8.5 mg/dL (8.5-10.1) 05/26/17 05:45 Total Bilirubin 3.0 mg/dL (0.2-1.0) H D 05/26/17 05:45 AST 81 U/L (15-37) H D 05/26/17 05:45 ALT 52 U/L (12-78) 05/26/17 05:45 Alkaline Phosphatase 107 U/L (45-117) 05/26/17 05:45 B-Natriuretic Peptide 568.36 pg/ml (5-125) H 05/26/17 05:45 Total Protein 7.3 g/dl (6.4-8.2) 05/26/17 05:45 Albumin 3.3 g/dl (3.4-5.0) L 05/26/17 05:45 Triglycerides 112 mg/dL (35-160) 05/26/17 05:45 Cholesterol 156 mg/dL (50-200) 05/26/17 05:45 Total LDL Cholesterol 95 mg/dL (5-100) 05/26/17 05:45 HDL Cholesterol 56 mg/dL (40-60) 05/26/17 05:45 TSH 0.58 uIU/ml (0.358-3.74) 05/26/17 05:45 Urine Color Li 05/26/17 00:01 Urine Appearance Clear 05/26/17 00:01 Urine pH 6.0 (5.0-8.0) 05/26/17 00:01 Ur Specific [place] 1.023 (1.001-1.035) 05/26/17 00:01 Urine Protein 2+ (NEGATIVE) H 05/26/17 00:01 Urine Glucose (UA) Negative (NEGATIVE) 05/26/17 00:01 Urine Ketones Negative (NEGATIVE) 05/26/17 00:01 Urine Blood Negative (NEGATIVE) 05/26/17 00:01 Urine Nitrite Negative (NEGATIVE) 05/26/17 00:01 Urine Bilirubin Negative (NEGATIVE) 05/26/17 00:01 Urine Urobilinogen 4.0 e.u/dl mg/dL (0.2-1.0) 05/26/17 00:01 Ur Leukocyte Esterase Negative (NEGATIVE) 05/26/17 00:01 Urine WBC (Auto) None /hpf (3-5) 05/26/17 00:01 Urine RBC (Auto) 1 /hpf (0-3) 05/26/17 00:01 Ur Epithelial Cells Rare /HPF (FEW) 05/26/17 00:01 Urine Bacteria Rare /hpf (NONE SEEN) 05/26/17 00:01 Urine Mucus Rare 05/26/17 00:01 RPR Titer Nonreactive (NONREACTIVE) 05/26/17 05:45 Labs noted Assessment: 05/27/17 11:20 Withdrawal sx Plan: Continue detox
[2017-05-27] MEDS ORDERED: buPROPion HCL 75 MG TABLET PO SCH (16:00)
--- NOTE | 2017-05-27 16:13 | DS ---
[facility] Detox Discharge Summary Admission Date: 05/25/17 Discharge Date: 05/27/17 - History Present History: Alcohol Dependence, Cocaine Dependence, Opioid Dependence Pertinent Past History: HIV positive, bilateral hip replacement, Hep C and Generalized neuropathy - Physical Exam Results Vital Signs: Vital Signs Temperature 99.1 F 05/27/17 09:13 Pulse Rate 90 05/27/17 09:13 Respiratory Rate 20 05/27/17 09:13 Blood Pressure 123/84 05/27/17 09:13 O2 Sat by Pulse Oximetry (%) Pertinent Admission Physical Exam Findings: Withdrawal sx Laboratory Last Values WBC 9.3 K/mm3 (4.0-10.0) D 05/26/17 05:45 RBC 4.65 M/mm3 (4.00-5.60) 05/26/17 05:45 Hgb 12.7 GM/dL (11.7-16.9) 05/26/17 05:45 Hct 40.8 % (35.4-49) 05/26/17 05:45 MCV 87.8 fl (80-96) 05/26/17 05:45 MCH 27.4 pg (25.7-33.7) 05/26/17 05:45 MCHC 31.2 g/dl (32.0-35.9) L 05/26/17 05:45 RDW 16.3 % (11.9-15.9) H D 05/26/17 05:45 Plt Count 189 K/MM3 (134-434) D 05/26/17 05:45 MPV 11.8 fl (7.5-11.1) H 05/26/17 05:45 Sodium 144 mmol/L (136-145) 05/26/17 05:45 Potassium 3.7 mmol/L (3.5-5.1) 05/26/17 05:45 Chloride 111 mmol/L (98-107) H 05/26/17 05:45 Carbon Dioxide 24 mmol/L (21-32) 05/26/17 05:45 Anion Gap 9 (8-16) 05/26/17 05:45 BUN 15 mg/dL (7-18) 05/26/17 05:45 Creatinine 0.8 mg/dL (0.7-1.3) 05/26/17 05:45 Creat Clearance w eGFR > 60 (>60) 05/26/17 05:45 Random Glucose 108 mg/dL (74-106) H 05/26/17 05:45 Calcium 8.5 mg/dL (8.5-10.1) 05/26/17 05:45 Total Bilirubin 3.0 mg/dL (0.2-1.0) H D 05/26/17 05:45 AST 81 U/L (15-37) H D 05/26/17 05:45 ALT 52 U/L (12-78) 05/26/17 05:45 Alkaline Phosphatase 107 U/L (45-117) 05/26/17 05:45 B-Natriuretic Peptide 568.36 pg/ml (5-125) H 05/26/17 05:45 Total Protein 7.3 g/dl (6.4-8.2) 05/26/17 05:45 Albumin 3.3 g/dl (3.4-5.0) L 05/26/17 05:45 Triglycerides 112 mg/dL (35-160) 05/26/17 05:45 Cholesterol 156 mg/dL (50-200) 05/26/17 05:45 Total LDL Cholesterol 95 mg/dL (5-100) 05/26/17 05:45 HDL Cholesterol 56 mg/dL (40-60) 05/26/17 05:45 TSH 0.58 uIU/ml (0.358-3.74) 05/26/17 05:45 Urine Color Li 05/26/17 00:01 Urine Appearance Clear 05/26/17 00:01 Urine pH 6.0 (5.0-8.0) 05/26/17 00:01 Ur Specific [place] 1.023 (1.001-1.035) 05/26/17 00:01 Urine Protein 2+ (NEGATIVE) H 05/26/17 00:01 Urine Glucose (UA) Negative (NEGATIVE) 05/26/17 00:01 Urine Ketones Negative (NEGATIVE) 05/26/17 00:01 Urine Blood Negative (NEGATIVE) 05/26/17 00: Urine Nitrite Negative (NEGATIVE) 05/26/17 00:01 Urine Bilirubin Negative (NEGATIVE) 05/26/17 00:01 Urine Urobilinogen 4.0 e.u/dl mg/dL (0.2-1.0) 05/26/17 00:01 Ur Leukocyte Esterase Negative (NEGATIVE) 05/26/17 00:01 Urine WBC (Auto) None /hpf (3-5) 05/26/17 00:01 Urine RBC (Auto) 1 /hpf (0-3) 05/26/17 00:01 Ur Epithelial Cells Rare /HPF (FEW) 05/26/17 00:01 Urine Bacteria Rare /hpf (NONE SEEN) 05/26/17 00:01 Urine Mucus Rare 05/26/17 00:01 RPR Titer Nonreactive (NONREACTIVE) 05/26/17 05:45 Labs noted - Medication Discharge Medications: Ambulatory Orders Atazanavir [Reyataz -] 300 mg PO DAILY 05/25/17 Bupropion HCl [Wellbutrin -] 150 mg PO BID 05/25/17 Dolutegravir Sodium [Tivicay] 50 mg PO DAILY 05/25/17 Emtricitabine/Tenofovir (Tdf) [Truvada 200 mg-300 mg Tablet] 1 each PO DAILY 04/01 Ritonavir [Norvir -] 100 mg PO DAILY 05/25/17 - Diagnosis (1) Alcohol dependence with uncomplicated withdrawal Status: Acute (2) Bipolar disorder Status: Acute (3) Cocaine dependence Status: Acute Qualifiers: Substance use status: uncomplicated Qualified Code(s): F14.20 - Cocaine dependence, uncomplicated (4) Nicotine dependence Status: Acute Qualifiers: Nicotine product type: cigarettes Substance use status: uncomplicated Qualified Code(s): F17.210 - Nicotine dependence, cigarettes, uncomplicated (5) Opioid dependence with withdrawal Status: Acute (6) AIDS (acquired immunodeficiency syndrome), CD4 >200 and <500 Status: Chronic (7) H/O bilateral hip replacements Status: Chronic (8) Hepatitis C Status: Chronic Qualifiers: Viral hepatitis chronicity: chronic (9) Neuropathy, generalized Status: Chronic - AMA Did Patient Leave Against Medical Advice: Yes
--- NOTE | 2017-05-27 17:12 | EKG ---
Test Reason : Blood Pressure : / mmHG Vent. Rate : 069 BPM Atrial Rate : 069 BPM P-R Int : 134 ms QRS Dur : 100 ms QT Int : 450 ms P-R-T Axes : 065 -56 003 degrees QTc Int : 482 ms NORMAL SINUS RHYTHM LEFT ANTERIOR FASCICULAR BLOCK NONSPECIFIC ST ABNORMALITY PROLONGED QT ABNORMAL ECG WHEN COMPARED WITH ECG OF 28-MAR-2017 16:38, NO SIGNIFICANT CHANGE WAS FOUND Confirmed by JAVON MARTINEZ MD ([id number]) on 05/27/2017 5:11:43 PM Referred By: Confirmed By:AJVON MARTINEZ MD
[2017-05-28] MEDS ORDERED: ATAZANAVIR SO4 300 MG CAPSULE PO SCH ×2 (08:00→10:00)
[2017-05-28] MEDS ORDERED: EMTRICITABINE 200MG/TENOFOVIR 300MG PO SCH (10:00)
[2017-05-28] MEDS ORDERED: DOLUTEGRAVIR SODIUM 50 MG TABLET PO SCH (10:00)
[2017-05-29] MEDS ORDERED: diazePAM 5 MG TABLET PO SCH (10:00)
[2017-05-29] MEDS ORDERED: METHADONE HCL 10 MG TABLET (FOR DETOX USE ONLY) PO SCH (10:00)
[2017-05-30] MEDS ORDERED: METHADONE HCL 5 MG TABLET (FOR DETOX USE ONLY) PO SCH (06:00)
== END 2017-05-27 12:50 | disposition left against medical advice (07) | DRG 770 ==
LOC: YASAS 12:42 → Y3N 14:55
PROVIDERS: ADMIT Internal Medicine; ATTEND Internal Medicine
PROC: HZ2ZZZZ Detoxification Services for Substance Abuse Treatment (ICD-10-PCS; principal; 2017-05-25)
DX: F11.23 Opioid dependence with withdrawal (principal); F10.230 Alcohol dependence with withdrawal, uncomplicated; F14.20 Cocaine dependence, uncomplicated; F17.210 Nicotine dependence, cigarettes, uncomplicated; F19.24 Other psychoactive substance dependence with psychoactive substance-induced mood disorder; F31.9 Bipolar disorder, unspecified; B18.2 Chronic viral hepatitis C; G62.9 Polyneuropathy, unspecified; B20 Human immunodeficiency virus [HIV] disease; R63.4 Abnormal weight loss; Z68.22 Body mass index [BMI] 22.0-22.9, adult; Z96.643 Presence of artificial hip joint, bilateral
CPT/HCPCS: 36415; 80053; 80061; 81003; 81015; 83721; 83880; 84443; 85027; 86593; 93005; 93010

== ENCOUNTER 2017-09-21 12:47 | Inpatient (IN) | payer OTHER ==
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
[2017-09-21] MEDS ORDERED: IBUPROFEN 400 MG TABLET (FP) PO PRN (15:20)
[2017-09-21] MEDS ORDERED: NICOTINE POLACRILEX 2 MG GUM BUC PRN (15:20)
[2017-09-21] MEDS ORDERED: MAGNESIUM CITRATE 300 ML BOTTLE PO PRN (15:20)
[2017-09-21] MEDS ORDERED: MENTHOL/PHENOL 1 EACH UD MM PRN (15:20)
[2017-09-21] MEDS ORDERED: MAGNESIUM HYDROX 2400MG/30ML ORAL SUSPENSION 30 ML CUP PO PRN (15:20)
[2017-09-21] MEDS ORDERED: P-EPHED 60MG/TRIPROLIDI 2.5MG TABLET PO PRN (15:20)
[2017-09-21] MEDS ORDERED: NICOTINE 14 MG/24 HOURS TOPICAL PATCH TD PRN (15:20)
[2017-09-21] MEDS ORDERED: MAG HYDROX/AL HYDROX/SIMETH 30 ML UNIT-DOSE CUP PO PRN (15:20)
[2017-09-21] MEDS ORDERED: BACLOFEN 10 MG TABLET (FP) PO PRN (15:25)
[2017-09-21] MEDS ORDERED: ACETAMINOPHEN 325 MG TABLET (FP) PO PRN (16:04)
[2017-09-21] MEDS ORDERED: guaiFENesin/D-METHORPHAN HB 10 ML UNIT-DOSE CUPS PO PRN (16:06)
[2017-09-21] MEDS ORDERED: LOPERAMIDE HCL 2 MG CAPSULE PO PRN (16:06)
[2017-09-21] MEDS ORDERED: diazePAM 5 MG TABLET PO ONE (16:15)
[2017-09-21] MEDS: GABAPENTIN 300 MG CAPSULE (FP) PO SCH ×2 (18:32→23:08)
[2017-09-21] MEDS ORDERED: MELATONIN 5 MG TABLETS PO PRN (22:00)
[2017-09-21] MEDS: THIAMINE HCL 100 MG TABLET (FP) PO SCH (23:08)
[2017-09-21] MEDS: diazePAM 5 MG TABLET PO SCH (23:13)
[2017-09-21 23:18] LABS: URINE APPEARANCE SLCLOUDY; URINE BILIRUBIN NEGATIVE (<2.0 mg/dL); URINE COLOR AMBER; URINE GLUCOSE (UA) NEGATIVE (NEGATIVE); URINE KETONE NEGATIVE (NEGATIVE); URINE LEUK ESTERASE NEGATIVE (NEGATIVE); URINE NITRITE NEGATIVE (NEGATIVE)
[2017-09-21 23:23] LABS: URINE PROTEIN 1+ (NEGATIVE)
[2017-09-21 23:25] LABS: EPI CELLS RARE /HPF (FEW); URINE MUCUS RARE
[2017-09-22] MEDS: diazePAM 5 MG TABLET PO SCH ×3 (05:23→22:39)
[2017-09-22] MEDS: GABAPENTIN 300 MG CAPSULE (FP) PO SCH ×3 (05:23→22:36)
--- NOTE | 2017-09-22 09:49 | EKG ---
Test Reason : Blood Pressure : / mmHG Vent. Rate : 047 BPM Atrial Rate : 047 BPM P-R Int : 128 ms QRS Dur : 100 ms QT Int : 486 ms P-R-T Axes : 058 -59 -27 degrees QTc Int : 430 ms SINUS BRADYCARDIA LEFT ANTERIOR FASCICULAR BLOCK ABNORMAL ECG WHEN COMPARED WITH ECG OF 25-MAY-2017 19:21, NO SIGNIFICANT CHANGE WAS FOUND Confirmed by AVELINA ZEE MD ([id number]) on 09/22/2017 9:49:15 AM Referred By: Confirmed By:AVELINA ZEE MD
[2017-09-22 10:07] LABS: HEMATOCRIT 37.6 % (35.4-49); MCH 28.5 pg (25.7-33.7); MCHC 31.9 g/dl (32.0-35.9); MEAN CELL VOLUME 89.3 fl (80-96); MEAN PLT VOLUME 11.7 fl (7.5-11.1); PLATELET COUNT 264 K/MM3 (134-434); RBC 4.21 M/mm3 (4.00-5.60); RDW 15.1 % (11.9-15.9); WHITE BLOOD COUNT 7.8 K/mm3 (4.0-10.0)
[2017-09-22 10:21] LABS: ALBUMIN 3.2 g/dl (3.4-5.0); ANION GAP 10 (8-16); BILIRUBIN,TOTAL 0.4 mg/dL (0.2-1.0); BLOOD UREA NITROGEN 10 mg/dL (7-18); CALCIUM 8.7 mg/dL (8.5-10.1); CHLORIDE 110 mmol/L (98-107); CO2 26 mmol/L (21-32); CREATININE 0.8 mg/dL (0.7-1.3); GLUCOSE,RANDOM 77 mg/dL (74-106); POTASSIUM 3.7 mmol/L (3.5-5.1); SGOT/AST 52 U/L (15-37); SGPT/ALT 45 U/L (12-78); SODIUM 146 mmol/L (136-145); TOT PROT 6.9 g/dl (6.4-8.2)
[2017-09-22 10:22] LABS: ALK PHOS 106 U/L (45-117)
[2017-09-22] MEDS: diazePAM 5 MG TABLET PO PRN ×2 (10:37→19:09)
[2017-09-22] MEDS: PRENATAL VITAMINS W/ FOLIC ACID TABLET (FP) PO SCH (10:37)
--- NOTE | 2017-09-22 12:34 | PN ---
[facility] CIWA - CIWA Score Nausea/Vomitin-No Nausea/No Vomiting Muscle Tremors: 4-Moderate,w/Arms Extend Anxiety: 4-Mod. Anxious/Guarded Agitation: 4-Moderately Restless Paroxysmal Sweats: 1-Minimal Palms Moist Orientation: 0-Oriented Tacttile Disturbances: 3-Moderate Itch/Numb/Burn Auditory Disturbances: 0-None Visual Disturbances: 0-None Headache: 0-None Present CIWA-Ar Total Score: 16 S Progress Note (SOAP) Subjective: ANXIETY,IRRITABILITY,CHILLS, GENERALIZED BODY ACHE,FATIGUE,INTERMITTENT SLEEP. Objective: 09/22/17 12:33 Vital Signs 09/22/17 09/22/17 06:21 10:00 Temperature 95.1 F L 97.6 F Pulse Rate 49 L 67 Respiratory 18 18 Rate Blood Pressure 140/86 118/68 Laboratory Tests 09/21/17 09/22/17 09/22/17 23:00 05:45 05:45 WBC 7.8 RBC 4.21 Hgb 12.0 Hct 37.6 MCV 89.3 MCH 28.5 MCHC 31.9 L RDW 15.1 Plt Count 264 D MPV 11.7 H Sodium 146 H Potassium 3.7 Chloride 110 H Carbon Dioxide 26 Anion Gap 10 BUN 10 D Creatinine 0.8 Creat Clearance w eGFR > 60 Random Glucose 77 D Calcium 8.7 Total Bilirubin 0.4 D AST 52 H D ALT 45 Alkaline Phosphatase 106 Total Protein 6.9 Albumin 3.2 L Urine Color Li Urine Appearance Slcloudy Urine pH 6.0 Ur Specific [place] 1.021 Urine Protein 1+ H Urine Glucose (UA) Negative Urine Ketones Negative Urine Blood Negative Urine Nitrite Negative Urine Bilirubin Negative Urine Urobilinogen 2.0 Ur Leukocyte Esterase Negative Urine WBC (Auto) 2 Urine RBC (Auto) 1 Ur Epithelial Cells Rare Urine Mucus Rare RPR Titer 09/22/17 05:45 WBC RBC Hgb Hct MCV MCH MCHC RDW Plt Count MPV Sodium Potassium Chloride Carbon Dioxide Anion Gap BUN Creatinine Creat Clearance w eGFR Random Glucose Calcium Total Bilirubin AST ALT Alkaline Phosphatase Total Protein Albumin Urine Color Urine Appearance Urine pH Ur Specific [place] Urine Protein Urine Glucose (UA) Urine Ketones Urine Blood Urine Nitrite Urine Bilirubin Urine Urobilinogen Ur Leukocyte Esterase Urine WBC (Auto) Urine RBC (Auto) Ur Epithelial Cells Urine Mucus RPR Titer Nonreactive Assessment: 09/22/17 12:33 WITHDRAWAL SX Plan: CONTINUE DETOX INCREASE PO FLUIDS
--- NOTE | 2017-09-22 12:56 | CONSULT ---
[facility] Psychiatric Consult - Data Date of interview: 09/22/17 Admission source: [facility] Identifying data: Another admission to [facility] for this 56 y/o male seeking detox treatment on for alcohol,heroin and cocaine dependence.Patient is single without children,domiciled,unemployed,disabled and supported on food stamps. Substance Abuse History: Confirmed by patient in this session.Details in current [facility] report : Smoking history: Current every day smoker. Have you smoked in the past 12 months: Yes. Aproximately how many cigarettes per day: 7. Cigars Per Day: 0. Hx Chewing Tobacco Use: No. Initiated information on smoking cessation: Yes. 'Breaking Loose' booklet given: 09/21/17. - Substance & Tx. History. Hx Alcohol Use: Yes. Hx Substance Use: Yes. Substance Use Type : Alcohol, Cocaine. Hx Substance Use Treatment: Yes (05/2017 [facility]). - Substances Abused. Alcohol. Route: Oral. Frequency: Daily. Amount used: 3 pints vodka. Age of first use: 13. Date of Last Use: 09/21/17 Medical History: HIV infection since 1981,hepatitis C,neuropathy,bilateral hip replacement and a history of splenectomy. Psychiatric History: History of one psychiatric hospitalization ([facility]).Diagnosed with MDD.Patient still gets OPD psychiatric services at the [facility] ([place]).Prescribed wellbutrin 150 mg po bid.Non-adherent to medications.Mr Luna reports that he last took wellbutrin months ago.Patient denies history of suicide attempts. Physical/Sexual Abuse/Trauma History: Patient denies. Additional Comment: Urine Drug Screen Results: LEISA-Cocaine.Noted. Mental Status Exam - Mental Status Exam Alert and Oriented to: Time, Place, Person Cognitive Function: Good Patient Appearance: Unkempt, Disheveled Mood: Apprehensive, Hopeful Affect: Mood Congruent Patient Behavior: Fatigued, Cooperative Speech Pattern: Clear Voice Loudness: Normal Thought Process: Goal Oriented Thought Disorder: Not Present Hallucinations: Denies Suicidal Ideation: Denies Homicidal Ideation: Denies Insight/Judgement: Poor Sleep: Poorly, Difficulty falling asleep Appetite: Good Gait/Station: Normal (observed ambulating independently) Psychiatric Findings - Problem List ([place] 1, 2,3) (1) Alcohol dependence with uncomplicated withdrawal Current Visit: Yes Status: Acute (2) Cocaine dependence Current Visit: Yes Status: Acute Qualifiers: Substance use status: uncomplicated Qualified Code(s): F14.20 - Cocaine dependence, uncomplicated (3) Nicotine dependence Current Visit: Yes Status: Acute Qualifiers: Nicotine product type: cigarettes Substance use status: in withdrawal Qualified Code(s): F17.213 - Nicotine dependence, cigarettes, with withdrawal (4) Drug-induced mood disorder Current Visit: Yes Status: Acute - Initial Treatment Plan Initial Treatment Plan: Psychoeducation.Records are revisited.Sleep hygiene discussed.Wellbutrin 100 mg po bid (second dose no later than 4 pm).Patient is made aware of the risk of seizures.Mr Luna agrees with this careplan.Observation.
[2017-09-22] MEDS: buPROPion HCL 75 MG TABLET PO SCH (17:46)
[2017-09-22] MEDS: THIAMINE HCL 100 MG TABLET (FP) PO SCH (22:36)
[2017-09-23] MEDS: diazePAM 5 MG TABLET PO PRN (05:51)
[2017-09-23] MEDS: GABAPENTIN 300 MG CAPSULE (FP) PO SCH (05:51)
[2017-09-23 06:22] VITALS: BP 128/78; PULSE 62; TEMP 96.5
[2017-09-23] MEDS ORDERED: diazePAM 5 MG TABLET PO SCH (10:00)
[2017-09-23] MEDS: PRENATAL VITAMINS W/ FOLIC ACID TABLET (FP) PO SCH (10:18)
[2017-09-23] MEDS: buPROPion HCL 75 MG TABLET PO SCH (10:57)
--- NOTE | 2017-09-23 15:10 | PN ---
S CIWA - CIWA Score Nausea/Vomitin-No Nausea/No Vomiting Muscle Tremors: 4-Moderate,w/Arms Extend Anxiety: 5 Agitation: 5 Paroxysmal Sweats: No Perspiration Orientation: 0-Oriented Tacttile Disturbances: 2-Mild Itch/Numbness/Burn Auditory Disturbances: 0-None Visual Disturbances: 0-None Headache: 0-None Present CIWA-Ar Total Score: 16 BHS Progress Note (SOAP) Subjective: Stomach Cramping, Tremors, Anxious. Objective: PATIENT A & O X 3, OBSERVED AMBULATING ON UNIT. NO ACUTE DISTRESS. 09/23/17 15:09 Vital Signs Temperature 96.5 F L 09/23/17 06:22 Pulse Rate 62 09/23/17 06:22 Respiratory Rate 18 09/23/17 06:22 Blood Pressure 128/78 09/23/17 06:22 O2 Sat by Pulse Oximetry (%) Laboratory Tests 09/21/17 09/22/17 09/22/17 23:00 05:45 05:45 WBC 7.8 RBC 4.21 Hgb 12.0 Hct 37.6 MCV 89.3 MCH 28.5 MCHC 31.9 L RDW 15.1 Plt Count 264 D MPV 11.7 H Sodium 146 H Potassium 3.7 Chloride 110 H Carbon Dioxide 26 Anion Gap 10 BUN 10 D Creatinine 0.8 Creat Clearance w eGFR > 60 Random Glucose 77 D Calcium 8.7 Total Bilirubin 0.4 D AST 52 H D ALT 45 Alkaline Phosphatase 106 Total Protein 6.9 Albumin 3.2 L Urine Color Li Urine Appearance Slcloudy Urine pH 6.0 Ur Specific [place] 1.021 Urine Protein 1+ H Urine Glucose (UA) Negative Urine Ketones Negative Urine Blood Negative Urine Nitrite Negative Urine Bilirubin Negative Urine Urobilinogen 2.0 Ur Leukocyte Esterase Negative Urine WBC (Auto) 2 Urine RBC (Auto) 1 Ur Epithelial Cells Rare Urine Mucus Rare RPR Titer 09/22/17 05:45 WBC RBC Hgb Hct MCV MCH MCHC RDW Plt Count MPV Sodium Potassium Chloride Carbon Dioxide Anion Gap BUN Creatinine Creat Clearance w eGFR Random Glucose Calcium Total Bilirubin AST ALT Alkaline Phosphatase Total Protein Albumin Urine Color Urine Appearance Urine pH Ur Specific [place] Urine Protein Urine Glucose (UA) Urine Ketones Urine Blood Urine Nitrite Urine Bilirubin Urine Urobilinogen Ur Leukocyte Esterase Urine WBC (Auto) Urine RBC (Auto) Ur Epithelial Cells Urine Mucus RPR Titer Nonreactive LABS NOTED. Assessment: 09/23/17 15:09 WITHDRAWAL SYMPTOMS. Plan: CONTINUE DETOX.
--- NOTE | 2017-09-23 15:13 | DS ---
[facility] Detox Discharge Summary Admission Date: 09/21/17 Discharge Date: 09/23/17 - History Present History: Alcohol Dependence, Cocaine Dependence Additional Comments: PATIENT DOES NOT WISH TO STAY TO COMPLETE DETOX REGIMEN. RISKS OF LEAVING DETOX UNIT AGAINST MEDICAL ADVICE AND PRIOR TO COMPLETION OF DETOX REGIMEN EXPLAINED TO PATIENT. PATIENT ADVISED TO GO IMMEDIATELY TO NEAREST ER SHOULD ANY INTOLERABLE DETOX SYMPTOMS DEVELOP AT ANY TIME. PATIENT LEFT DETOX UNIT IN STABLE MEDICAL CONDITION. Pertinent Past History: History of Bilateral Hip Replacement, HIV, Hep C, Peripheral Neuropathy, Nicotine Dependence, Bipolar Disorder, Use of Cane as Ambulatory Aid. - Physical Exam Results Vital Signs: Vital Signs Temperature 96.5 F L 09/23/17 06:22 Pulse Rate 62 09/23/17 06:22 Respiratory Rate 18 09/23/17 06:22 Blood Pressure 128/78 09/23/17 06:22 O2 Sat by Pulse Oximetry (%) Pertinent Admission Physical Exam Findings: WITHDRAWAL SYMPTOMS. Laboratory Tests 09/21/17 09/22/17 09/22/17 23:00 05:45 05:45 WBC 7.8 RBC 4.21 Hgb 12.0 Hct 37.6 MCV 89.3 MCH 28.5 MCHC 31.9 L RDW 15.1 Plt Count 264 D MPV 11.7 H Sodium 146 H Potassium 3.7 Chloride 110 H Carbon Dioxide 26 Anion Gap 10 BUN 10 D Creatinine 0.8 Creat Clearance w eGFR > 60 Random Glucose 77 D Calcium 8.7 Total Bilirubin 0.4 D AST 52 H D ALT 45 Alkaline Phosphatase 106 Total Protein 6.9 Albumin 3.2 L Urine Color Li Urine Appearance Slcloudy Urine pH 6.0 Ur Specific [place] 1.021 Urine Protein 1+ H Urine Glucose (UA) Negative Urine Ketones Negative Urine Blood Negative Urine Nitrite Negative Urine Bilirubin Negative Urine Urobilinogen 2.0 Ur Leukocyte Esterase Negative Urine WBC (Auto) 2 Urine RBC (Auto) 1 Ur Epithelial Cells Rare Urine Mucus Rare RPR Titer 09/22/17 05:45 WBC RBC Hgb Hct MCV MCH MCHC RDW Plt Count MPV Sodium Potassium Chloride Carbon Dioxide Anion Gap BUN Creatinine Creat Clearance w eGFR Random Glucose Calcium Total Bilirubin AST ALT Alkaline Phosphatase Total Protein Albumin Urine Color Urine Appearance Urine pH Ur Specific [place] Urine Protein Urine Glucose (UA) Urine Ketones Urine Blood Urine Nitrite Urine Bilirubin Urine Urobilinogen Ur Leukocyte Esterase Urine WBC (Auto) Urine RBC (Auto) Ur Epithelial Cells Urine Mucus RPR Titer Nonreactive - Treatment Hospital Course: Detoxed Safely - Medication Discharge Medications: Ambulatory Orders Atazanavir [Reyataz -] 300 mg PO DAILY 05/25/17 Bupropion HCl [Wellbutrin -] 150 mg PO BID 05/25/17 Dolutegravir Sodium [Tivicay] 50 mg PO DAILY 05/25/17 Emtricitabine/Tenofovir (Tdf) [Truvada 200 mg-300 mg Tablet] 1 each PO DAILY 04/01 Ritonavir [Norvir -] 100 mg PO DAILY 05/25/17 - Diagnosis (1) Alcohol dependence with uncomplicated withdrawal Current Visit: Yes Status: Acute (2) Cocaine dependence Current Visit: Yes Status: Acute Qualifiers: Substance use status: uncomplicated Qualified Code(s): F14.20 - Cocaine dependence, uncomplicated (3) Drug-induced mood disorder Current Visit: Yes Status: Acute (4) Nicotine dependence Current Visit: Yes Status: Acute Qualifiers: Nicotine product type: cigarettes Substance use status: in withdrawal Qualified Code(s): F17.213 - Nicotine dependence, cigarettes, with withdrawal (5) Neuropathy, generalized Current Visit: Yes Status: Chronic (6) HIV (human immunodeficiency virus infection) Current Visit: Yes Status: Chronic (7) Hepatitis C Current Visit: Yes Status: Chronic Qualifiers: Viral hepatitis chronicity: chronic Hepatic coma status: without hepatic coma Qualified Code(s): B18.2 - Chronic viral hepatitis C - AMA Did Patient Leave Against Medical Advice: Yes (PATIENT DID NOT WISH TO STAY TO COMPLETE DETOX REGIMEN.)
[2017-09-25] MEDS ORDERED: diazePAM 5 MG TABLET PO SCH (10:00)
== END 2017-09-23 14:05 | disposition left against medical advice (07) | DRG 770 ==
LOC: YASAS 12:47 → Y3N 17:21
PROVIDERS: ADMIT Internal Medicine; ATTEND Internal Medicine
PROC: HZ2ZZZZ Detoxification Services for Substance Abuse Treatment (ICD-10-PCS; principal; 2017-09-21)
DX: F10.230 Alcohol dependence with withdrawal, uncomplicated (principal); F14.20 Cocaine dependence, uncomplicated; F17.213 Nicotine dependence, cigarettes, with withdrawal; F31.81 Bipolar II disorder; F19.24 Other psychoactive substance dependence with psychoactive substance-induced mood disorder; Z21 Asymptomatic human immunodeficiency virus [HIV] infection status; B18.2 Chronic viral hepatitis C; G62.9 Polyneuropathy, unspecified; R26.89 Other abnormalities of gait and mobility; Z99.89 Dependence on other enabling machines and devices; Z96.643 Presence of artificial hip joint, bilateral
CPT/HCPCS: 36415; 80053; 81003; 81015; 85027; 86593; 93005; 93010

== ENCOUNTER 2017-10-23 15:18 | Inpatient (IN) | payer OTHER ==
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
[2017-10-23] MEDS ORDERED: MAGNESIUM HYDROX 2400MG/30ML ORAL SUSPENSION 30 ML CUP PO PRN (19:05)
[2017-10-23] MEDS ORDERED: diazePAM 5 MG TABLET PO ONE (19:05)
[2017-10-23] MEDS ORDERED: NICOTINE POLACRILEX 2 MG GUM BUC PRN (19:05)
[2017-10-23] MEDS ORDERED: LOPERAMIDE HCL 2 MG CAPSULE PO PRN (19:05)
[2017-10-23] MEDS ORDERED: guaiFENesin/D-METHORPHAN HB 10 ML UNIT-DOSE CUPS PO PRN (19:05)
[2017-10-23] MEDS ORDERED: MENTHOL/PHENOL 1 EACH UD MM PRN (19:05)
[2017-10-23] MEDS ORDERED: MAG HYDROX/AL HYDROX/SIMETH 30 ML UNIT-DOSE CUP PO PRN (19:05)
[2017-10-23] MEDS ORDERED: hydrOXYzine PAMOATE 50 MG CAPSULE (FP) PO PRN (19:05)
[2017-10-23] MEDS ORDERED: P-EPHED 60MG/TRIPROLIDI 2.5MG TABLET PO PRN (19:05)
[2017-10-23] MEDS ORDERED: MAGNESIUM CITRATE 300 ML BOTTLE PO PRN (19:05)
[2017-10-23] MEDS ORDERED: IBUPROFEN 400 MG TABLET (FP) PO PRN (19:05)
[2017-10-23] MEDS ORDERED: ACETAMINOPHEN 325 MG TABLET (FP) PO PRN (19:05)
[2017-10-23] MEDS: buPROPion HCL 100 MG TABLET PO SCH (21:50)
[2017-10-23] MEDS: THIAMINE HCL 100 MG TABLET (FP) PO SCH (21:51)
[2017-10-23] MEDS: diazePAM 5 MG TABLET PO SCH (21:52)
[2017-10-23] MEDS ORDERED: MELATONIN 5 MG TABLETS PO PRN (22:00)
[2017-10-23 23:25] LABS: URINE APPEARANCE CLOUDY; URINE BILIRUBIN NEGATIVE (<2.0 mg/dL); URINE COLOR DKYELLOW; URINE GLUCOSE (UA) NEGATIVE (NEGATIVE); URINE KETONE NEGATIVE (NEGATIVE); URINE LEUK ESTERASE NEGATIVE (NEGATIVE); URINE NITRITE NEGATIVE (NEGATIVE); URINE PROTEIN NEGATIVE (NEGATIVE); URINE UROBILINOGEN NEGATIVE mg/dL (0.2-1.0)
[2017-10-24] MEDS: diazePAM 5 MG TABLET PO SCH ×3 (05:47→22:33)
[2017-10-24] MEDS: PRENATAL VITAMINS W/ FOLIC ACID TABLET (FP) PO SCH (10:09)
[2017-10-24] MEDS: buPROPion HCL 100 MG TABLET PO SCH ×2 (10:09→16:58)
[2017-10-24] MEDS: NICOTINE 14 MG/24 HOURS TOPICAL PATCH TD SCH (10:10)
[2017-10-24] MEDS: diazePAM 5 MG TABLET PO PRN (10:10)
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
--- NOTE | 2017-10-24 12:24 | EKG ---
Test Reason : Blood Pressure : / mmHG Vent. Rate : 048 BPM Atrial Rate : 048 BPM P-R Int : 132 ms QRS Dur : 100 ms QT Int : 476 ms P-R-T Axes : 069 -53 -12 degrees QTc Int : 425 ms SINUS BRADYCARDIA LEFT ANTERIOR FASCICULAR BLOCK ABNORMAL ECG WHEN COMPARED WITH ECG OF 21-SEP-2017 17:56, NO SIGNIFICANT CHANGE WAS FOUND Confirmed by MD ANANTH, ANKUSH ([id number]) on 10/24/2017 12:24:20 PM Referred By: Confirmed By:ANKUSH WADSWORTH MD
--- NOTE | 2017-10-24 12:32 | PN ---
S CIWA - CIWA Score Nausea/Vomitin Muscle Tremors: 3 Anxiety: 3 Agitation: 3 Paroxysmal Sweats: 1-Minimal Palms Moist Orientation: 0-Oriented Tacttile Disturbances: 1-Very Mild Itch/Numbness Auditory Disturbances: 1-Very Mild Visual Disturbances: 0-None Headache: 2-Mild CIWA-Ar Total Score: 17 BHS COWS - Scale Resting Pulse: 0= [place] 80 or Below Sweatin= Chills/Flushing Restless Observation: 3= Extraneous Movement Pupil Size: 1= Pupils >than Normal Bone or Joint Aches: 2= Severe Diffuse Aches Runny Nose/ Eye Tearin= Nasal Congestion GI Upset > 30mins: 2= Nausea/Diarrhea Tremor Observation of Outstretched Hands: 2= Slight Tremor Visible Yawning Observation: 1= 1-2x During Session Anxiety or Irritability: 2=Irritable/Anxious Goose Flesh Skin: 0=Smooth Skin COWS Score: 15 BHS Progress Note (SOAP) Subjective: alert,irritable,anxious,interrupted sleep,tremor,pain in the body and back Objective: 10/24/17 12:30 Vital Signs Temperature 97.0 F L 10/24/17 09:28 Pulse Rate 56 L 10/24/17 09:28 Respiratory Rate 16 10/24/17 09:28 Blood Pressure 117/76 10/24/17 09:28 O2 Sat by Pulse Oximetry (%) Assessment: 10/24/17 12:32 withdrawal symptom Plan: continue detox
[2017-10-24] MEDS ORDERED: buPROPion HCL 75 MG TABLET PO SCH (18:00)
[2017-10-24] MEDS: THIAMINE HCL 100 MG TABLET (FP) PO SCH (22:33)
[2017-10-25] MEDS: diazePAM 5 MG TABLET PO PRN ×3 (06:56→14:16)
[2017-10-25 10:06] LABS: INR 1.04 (0.82-1.09); PROTHROMBIN TIME (PATIENT) 11.7 SEC (9.7-13.0)
[2017-10-25] MEDS: PRENATAL VITAMINS W/ FOLIC ACID TABLET (FP) PO SCH (10:16)
[2017-10-25] MEDS: buPROPion HCL 100 MG TABLET PO SCH ×2 (10:16→17:40)
[2017-10-25] MEDS: NICOTINE 14 MG/24 HOURS TOPICAL PATCH TD SCH (10:16)
[2017-10-25 10:17] LABS: HEMATOCRIT 38.5 % (35.4-49); HEMOGLOBIN 12.4 GM/dL (11.7-16.9); MCH 28.1 pg (25.7-33.7); MCHC 32.3 g/dl (32.0-35.9); MEAN PLT VOLUME 10.6 fl (7.5-11.1); PLATELET COUNT 274 K/MM3 (134-434); RBC 4.43 M/mm3 (4.00-5.60); WHITE BLOOD COUNT 7.8 K/mm3 (4.0-10.0)
[2017-10-25] MEDS: diazePAM 5 MG TABLET PO SCH ×2 (10:17→22:48)
--- NOTE | 2017-10-25 11:45 | PN ---
[facility] CIWA - CIWA Score Nausea/Vomitin-Mild Nausea/No Vomiting Muscle Tremors: 1-None Visible, but [place] Anxiety: 1-Mildly Anxious Agitation: 1-Slight > Activity Paroxysmal Sweats: 3 Orientation: 0-Oriented Tacttile Disturbances: 2-Mild Itch/Numbness/Burn Auditory Disturbances: 0-None Visual Disturbances: 0-None Headache: 1-Very Mild CIWA-Ar Total Score: 10 BHS COWS - Scale Resting Pulse: 0= [place] 80 or Below Sweatin= Chills/Flushing Restless Observation: 1= Difficult to Sit Still Pupil Size: 1= Pupils >than Normal Bone or Joint Aches: 2= Severe Diffuse Aches Runny Nose/ Eye Tearin= Nasal Congestion GI Upset > 30mins: 1= Stomach Cramp Tremor Observation of Outstretched Hands: 2= Slight Tremor Visible Yawning Observation: 0= None Anxiety or Irritability: 1=Feels Anxious/Irritable Goose Flesh Skin: 0=Smooth Skin COWS Score: 10 S Progress Note (SOAP) Subjective: interrupted sleep, sweats, edwar. hip pain Objective: 10/25/17 11:44 Vital Signs Temperature 98.1 F 10/25/17 09:38 Pulse Rate 64 10/25/17 09:38 Respiratory Rate 18 10/25/17 09:38 Blood Pressure 113/63 10/25/17 09:38 O2 Sat by Pulse Oximetry (%) Laboratory Tests 10/23/17 10/25/17 10/25/17 22:30 06:40 06:40 WBC 7.8 RBC 4.43 Hgb 12.4 Hct 38.5 MCV 87.0 MCH 28.1 MCHC 32.3 RDW 16.0 H Plt Count 274 MPV 10.6 PT with INR 11.70 INR 1.04 Urine Color [place]ky[place] Urine Appearance Cloudy Urine pH 7.0 Ur Specific [place] 1.014 Urine Protein Negative Urine Glucose (UA) Negative Urine Ketones Negative Urine Blood Negative Urine Nitrite Negative Urine Bilirubin Negative Urine Urobilinogen Negative Ur Leukocyte Esterase Negative pt aox3 lying in bed Assessment: 10/25/17 11:45 withdrawal sx's Plan: cont. detox increase fluids
[2017-10-25 13:13] LABS: ALBUMIN 2.8 g/dl (3.4-5.0); ALK PHOS 96 U/L (45-117); ANION GAP 11 (8-16); BILIRUBIN,TOTAL 0.2 mg/dL (0.2-1.0); BLOOD UREA NITROGEN 12 mg/dL (7-18); CALCIUM 8.6 mg/dL (8.5-10.1); CHLORIDE 109 mmol/L (98-107); CO2 23 mmol/L (21-32); CREATININE 0.6 mg/dL (0.7-1.3); GLUCOSE,RANDOM 101 mg/dL (74-106); POTASSIUM 3.8 mmol/L (3.5-5.1); SGOT/AST 52 U/L (15-37); SGPT/ALT 60 U/L (12-78); SODIUM 143 mmol/L (136-145); TOT PROT 6.9 g/dl (6.4-8.2)
[2017-10-25] MEDS: THIAMINE HCL 100 MG TABLET (FP) PO SCH (22:48)
[2017-10-26 09:24] VITALS: TEMP 98.2
[2017-10-26] MEDS: buPROPion HCL 100 MG TABLET PO SCH (10:31)
[2017-10-26] MEDS: diazePAM 5 MG TABLET PO SCH (10:31)
[2017-10-26] MEDS: NICOTINE 14 MG/24 HOURS TOPICAL PATCH TD SCH (10:31)
[2017-10-26] MEDS: PRENATAL VITAMINS W/ FOLIC ACID TABLET (FP) PO SCH (10:31)
--- NOTE | 2017-10-26 11:22 | PN ---
[facility] Progress Note Note: PATIENT ADMITTED 10/23/17 FOR ETOH DETOX. TOLERATING TREATMENT WELL. STATES "I FEEL A LITTLE SHAKY AND SWEATY". DENIES N/V/D. IN NAD. NO COMPLAINTS OF CP, SOB AND DIZZINESS. Laboratory Tests 10/23/17 10/25/17 10/25/17 22:30 06:40 06:40 WBC 7.8 RBC 4.43 Hgb 12.4 Hct 38.5 MCV 87.0 MCH 28.1 MCHC 32.3 RDW 16.0 H Plt Count 274 MPV 10.6 PT with INR INR Sodium 143 Potassium 3.8 Chloride 109 H Carbon Dioxide 23 Anion Gap 11 BUN 12 Creatinine 0.6 L D Creat Clearance w eGFR > 60 Random Glucose 101 D Calcium 8.6 Total Bilirubin 0.2 D AST 52 H ALT 60 D Alkaline Phosphatase 96 Total Protein 6.9 Albumin 2.8 L Urine Color Dkyellow Urine Appearance Cloudy Urine pH 7.[address] [place] 1.014 Urine Protein Negative Urine Glucose (UA) Negative Urine Ketones Negative Urine Blood Negative Urine Nitrite Negative Urine Bilirubin Negative Urine Urobilinogen Negative Ur Leukocyte Esterase Negative RPR Titer 10/25/17 10/25/17 06:40 08:36 WBC RBC Hgb Hct MCV MCH MCHC RDW Plt Count MPV PT with INR 11.70 INR 1.04 Sodium Potassium Chloride Carbon Dioxide Anion Gap BUN Creatinine Creat Clearance w eGFR Random Glucose Calcium Total Bilirubin AST ALT Alkaline Phosphatase Total Protein Albumin Urine Color Urine Appearance Urine pH Ur Specific [place] Urine Protein Urine Glucose (UA) Urine Ketones Urine Blood Urine Nitrite Urine Bilirubin Urine Urobilinogen Ur Leukocyte Esterase RPR Titer Nonreactive Vital Signs Temperature 98.2 F 10/26/17 09:23 Pulse Rate 73 10/26/17 09:23 Respiratory Rate 16 10/26/17 09:23 Blood Pressure 119/78 10/26/17 09:23 O2 Sat by Pulse Oximetry (%) OBJ: SKIN: WARM AND MOIST CAR: S1S2 RESP: CTA BL EXT: MILD TREMORS FELT, NO EDEMA. A/P: ETOH DETOX WITHDRAWAL SYNDROME CONTINUE ORAL FLUIDS AND TREATMENT CONTINUE TO MONITOR CLINICALLY
--- NOTE | 2017-10-26 12:29 | DS ---
[facility] Detox Discharge Summary Admission Date: 10/23/17 Discharge Date: 10/26/17 - History Present History: Alcohol Dependence Additional Comments: 57 years old male admitted 10/23/17 for alcohol withdrawal sx patient reported mild alcohol withdrawal sx and can tolerated the discomfort patient preferred recovery process today and attend rehab program today case discussed with counselor that revelation available today for the patient strong recommend the patient to obtain ART medication while in rehab - Physical Exam Results Vital Signs: Vital Signs Temperature 98.2 F 10/26/17 09:23 Pulse Rate 73 10/26/17 09:23 Respiratory Rate 16 10/26/17 09:23 Blood Pressure 119/78 10/26/17 09:23 O2 Sat by Pulse Oximetry (%) Pertinent Admission Physical Exam Findings: alcohol withdrawal sx Vital Signs Temperature 98.2 F 10/26/17 09:23 Pulse Rate 73 10/26/17 09:23 Respiratory Rate 16 10/26/17 09:23 Blood Pressure 119/78 10/26/17 09:23 O2 Sat by Pulse Oximetry (%) Laboratory Last Values WBC 7.8 K/mm3 (4.0-10.0) 10/25/17 06:40 RBC 4.43 M/mm3 (4.00-5.60) 10/25/17 06:40 Hgb 12.4 GM/dL (11.7-16.9) 10/25/17 06:40 Hct 38.5 % (35.4-49) 10/25/17 06:40 MCV 87.0 fl (80-96) 10/25/17 06:40 MCH 28.1 pg (25.7-33.7) 10/25/17 06:40 MCHC 32.3 g/dl (32.0-35.9) 10/25/17 06:40 RDW 16.0 % (11.9-15.9) H 10/25/17 06:40 Plt Count 274 K/MM3 (134-434) 10/25/17 06:40 MPV 10.6 fl (7.5-11.1) 10/25/17 06:40 PT with INR 11.70 SEC (9.7-13.0) 10/25/17 06:40 INR 1.04 (0.82-1.09) 10/25/17 06:40 Sodium 143 mmol/L (136-145) 10/25/17 06:40 Potassium 3.8 mmol/L (3.5-5.1) 10/25/17 06:40 Chloride 109 mmol/L (98-107) H 10/25/17 06:40 Carbon Dioxide 23 mmol/L (21-32) 10/25/17 06:40 Anion Gap 11 (8-16) 10/25/17 06:40 BUN 12 mg/dL (7-18) 10/25/17 06:40 Creatinine 0.6 mg/dL (0.7-1.3) L D 10/25/17 06:40 Creat Clearance w eGFR > 60 (>60) 10/25/17 06:40 Random Glucose 101 mg/dL (74-106) D 10/25/17 06:40 Calcium 8.6 mg/dL (8.5-10.1) 10/25/17 06:40 Total Bilirubin 0.2 mg/dL (0.2-1.0) D 10/25/17 06:40 AST 52 U/L (15-37) H 10/25/17 06:40 ALT 60 U/L (12-78) D 10/25/17 06:40 Alkaline Phosphatase 96 U/L (45-117) 10/25/17 06:40 Total Protein 6.9 g/dl (6.4-8.2) 10/25/17 06:40 Albumin 2.8 g/dl (3.4-5.0) L 10/25/17 06:40 Urine Color Dkyellow 10/23/17 22:30 Urine Appearance Cloudy 10/23/17 22:30 Urine pH 7.0 (5.0-8.0) 10/23/17 22:30 Ur Specific [place] 1.014 (1.001-1.035) 10/23/17 22:30 Urine Protein Negative (NEGATIVE) 10/23/17 22:30 Urine Glucose (UA) Negative (NEGATIVE) 10/23/17 22:30 Urine Ketones Negative (NEGATIVE) 10/23/17 22:30 Urine Blood Negative (NEGATIVE) 10/23/17 22:30 Urine Nitrite Negative (NEGATIVE) 10/23/17 22:30 Urine Bilirubin Negative (<2.0 mg/dL) 10/23/17 22:30 Urine Urobilinogen Negative mg/dL (0.2-1.0) 10/23/17 22:30 Ur Leukocyte Esterase Negative (NEGATIVE) 10/23/17 22:30 RPR Titer Nonreactive (NONREACTIVE) 10/25/17 08:36 lab noted - Treatment Hospital Course: Detox Protocol Followed, Detoxed Safely, Responded well, Discharged Condition Good, Rehab Referral Accepted Patient has Accepted a Re[facility] Referral to: [facility] - Medication Discharge Medications: Ambulatory Orders Atazanavir [Reyataz -] 300 mg PO DAILY 05/25/17 Bupropion HCl [Wellbutrin -] 150 mg PO BID 05/25/17 Dolutegravir Sodium [Tivicay] 50 mg PO DAILY 05/25/17 Emtricitabine/Tenofovir (Tdf) [Truvada 200 mg-300 mg Tablet] 1 each PO DAILY 04/01 Ritonavir [Norvir -] 100 mg PO DAILY 05/25/17 Bupropion HCl [Wellbutrin -] 100 mg PO BID #60 tablet 10/27/17 - Diagnosis (1) Alcohol dependence with uncomplicated withdrawal Status: Acute (2) HIV (human immunodeficiency virus infection) Status: Chronic (3) Hepatitis C Status: Resolved Qualifiers: Viral hepatitis chronicity: chronic Hepatic coma status: without hepatic coma Qualified Code(s): B18.2 - Chronic viral hepatitis C (4) Nicotine dependence Status: Chronic Qualifiers: Nicotine product type: cigarettes Substance use status: in withdrawal Qualified Code(s): F17.213 - Nicotine dependence, cigarettes, with withdrawal (5) Weight loss observed on examination Status: Acute (6) Bipolar II disorder Status: Suspected - AMA Did Patient Leave Against Medical Advice: No
[2017-10-26 13:41] VITALS: BP 123/78; PULSE 69
[2017-10-27] MEDS ORDERED: diazePAM 5 MG TABLET PO SCH (10:00)
== END 2017-10-26 03:08 | disposition other institution (70) | DRG 773 ==
LOC: YASAS 15:18 → Y6N 19:23
PROVIDERS: ADMIT Surgery; ATTEND Surgery
PROC: HZ2ZZZZ Detoxification Services for Substance Abuse Treatment (ICD-10-PCS; principal; 2017-10-23)
DX: F10.230 Alcohol dependence with withdrawal, uncomplicated (principal); F11.20 Opioid dependence, uncomplicated; F14.90 Cocaine use, unspecified, uncomplicated; F13.20 Sedative, hypnotic or anxiolytic dependence, uncomplicated; F17.213 Nicotine dependence, cigarettes, with withdrawal; Z21 Asymptomatic human immunodeficiency virus [HIV] infection status; B18.2 Chronic viral hepatitis C; G62.9 Polyneuropathy, unspecified; R26.2 Difficulty in walking, not elsewhere classified; Z99.89 Dependence on other enabling machines and devices; Z87.898 Personal history of other specified conditions; Z96.643 Presence of artificial hip joint, bilateral
CPT/HCPCS: 36415; 80053; 81003; 85027; 85610; 86593; 93005; 93010

== ENCOUNTER 2017-10-26 15:21 | Inpatient (IN) | payer OTHER ==
[2017-10-26] MEDS ORDERED: MENTHOL/PHENOL 1 EACH UD MM PRN (17:24)
[2017-10-26] MEDS ORDERED: NICOTINE POLACRILEX 4 MG GUM BUC PRN (17:24)
[2017-10-26] MEDS ORDERED: MAGNESIUM HYDROX 2400MG/30ML ORAL SUSPENSION 30 ML CUP PO PRN (17:24)
[2017-10-26] MEDS ORDERED: IBUPROFEN 400 MG TABLET (FP) PO PRN (17:24)
[2017-10-26] MEDS ORDERED: ACETAMINOPHEN 325 MG TABLET (FP) PO PRN (17:24)
[2017-10-26] MEDS ORDERED: hydrOXYzine PAMOATE 50 MG CAPSULE (FP) PO PRN (17:24)
[2017-10-26] MEDS ORDERED: MAGNESIUM CITRATE 300 ML BOTTLE PO PRN (17:24)
[2017-10-26] MEDS ORDERED: guaiFENesin/D-METHORPHAN HB 10 ML UNIT-DOSE CUPS PO PRN (17:24)
[2017-10-26] MEDS ORDERED: LOPERAMIDE HCL 2 MG CAPSULE PO PRN (17:24)
[2017-10-26] MEDS ORDERED: P-EPHED 60MG/TRIPROLIDI 2.5MG TABLET PO PRN (17:24)
[2017-10-26] MEDS ORDERED: MAG HYDROX/AL HYDROX/SIMETH 30 ML UNIT-DOSE CUP PO PRN (17:24)
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
[2017-10-26] MEDS ORDERED: buPROPion HCL 100 MG TABLET PO ONE (18:00)
[2017-10-26] MEDS ORDERED: THIAMINE HCL 100 MG TABLET (FP) PO SCH (22:00)
[2017-10-26] MEDS ORDERED: MELATONIN 5 MG TABLETS PO PRN (22:00)
[2017-10-27 06:42] VITALS: BP 146/85; PULSE 69; TEMP 97.9
[2017-10-27] MEDS ORDERED: PRENATAL VITAMINS W/ FOLIC ACID TABLET (FP) PO SCH (10:00)
[2017-10-27] MEDS ORDERED: NICOTINE 21 MG/24 HOURS TOPICAL PATCH TD SCH (10:00)
[2017-10-27] MEDS ORDERED: buPROPion HCL 100 MG TABLET PO SCH (10:00)
--- NOTE | 2017-10-27 11:44 | PN ---
Psychiatric Progress Note Vital Signs: Vital Signs Period Temp Pulse Resp BP Sys/Arnold Pulse Ox Last 24 Hr 97.9 F 69 16-18 146/85 Date of Session: 10/27/17 Chief Complaint:: Discharge visit(AMA) HPI: Patient adddresed Opioid,Cocaine,Alcohol and anxiolytic dependece comorbid with Substance induced mood disorder. ROS: Significant for HIV+. Current Medications: Active Medications Generic Name Dose Route Start Last Admin Trade Name Freq PRN Reason Stop Dose Admin Acetaminophen 650 mg 10/26/17 17:24 Tylenol - PO Q4H PRN FEVER Al Hydroxide/Mg Hydroxide 30 ml 10/26/17 17:24 Mylanta Oral Suspension - PO Q6H PRN DYSPEPSIA Bupropion HCl 100 mg 10/27/17 10:00 10/27/17 09:40 Wellbutrin - PO 100 mg BID@1000,1600 DIPIKA Administration Eucalyptus/Menthol/Phenol/Sorbitol 1 each 10/26/17 17:24 Cepastat Lozenge - MM Q4H PRN SORE THROAT Guaifenesin 10 ml 10/26/17 17:24 Robitussin Dm - PO Q6H PRN COUGH Hydroxyzine Pamoate 50 mg 10/26/17 17:24 Vistaril - PO Q4H PRN AGITATION Ibuprofen 400 mg 10/26/17 17:24 10/27/17 07:02 Motrin - PO 400 mg Q6H PRN Administration Pain Level 4-6 Loperamide HCl 4 mg 10/26/17 17:24 Imodium - PO Q6H PRN DIARRHEA Magnesium Citrate 300 ml 10/26/17 17:24 Citroma - PO Q48H PRN CONSTIPATION Magnesium Hydroxide 30 ml 10/26/17 17:24 Milk Of Magnesia - PO DAILY PRN CONSTIPATION Melatonin 5 mg 10/26/17 22:00 Melatonin PO HS PRN INSOMNIA Nicotine 21 mg 10/27/17 10:00 10/27/17 09:40 Nicoderm Patch - TD Not Given DAILY DIPIKA Nicotine Polacrilex 4 mg 10/26/17 17:24 Nicorette Gum - BUC Q2H PRN NICOTINE REPLACEMENT RX Multivit/Folic Acid/Iron 1 tab 10/27/17 10:00 10/27/17 09:39 Vitamins (Sjr) - PO 1 tab DAILY DIPIKA Administration Pseudoephedrine/Triprolidine 1 combo 10/26/17 17:24 Actifed - PO TID PRN NASAL CONGESTION Thiamine HCl 100 mg 10/26/17 22:00 10/26/17 22:15 Vitamin B1 - PO Not Given HS DIPIKA Current Side Effect: No Lab tests ordered: No Lab tests reviewed: Yes Provider note:: patient decided to sign out today because he is not happy to stay in the unit with all males.Patient also agreed that he doesnt have enouph motivations to continue further stabilization in inpatient facility.he will continue to address his issues on outpatient basis at [facility]. Supportive therapy provided. Total face to face time:: 30 Mental Status Exam - Mental Status Exam Cognitive Function: Grossly Intact Patient Appearance: Unkempt Mood: Angry, Anxious, Irritable Affect: Labile Patient Behavior: Restless, Uncooperative, Impulsive, Resitive to Care Speech Pattern: Clear Voice Loudness: Mildly Loud Thought Process: Goal Oriented Thought Disorder: Not Present Hallucinations: Denies Suicidal Ideation: Denies Homicidal Ideation: Denies Insight/Judgement: Impaired Sleep: Fair Appetite: Fair Muscle strength/Tone: Normal Gait/Station: Normal Psychiatric Treatment Plan - Problem List (1) Alcohol dependence Current Visit: Yes (2) Cocaine dependence Current Visit: Yes Qualifiers: Substance use status: uncomplicated Qualified Code(s): F14.20 - Cocaine dependence, uncomplicated (3) H/O bilateral hip replacements Current Visit: Yes (4) HIV (human immunodeficiency virus infection) Current Visit: Yes Comment: non-adherent with meds (5) Neuropathy, generalized Current Visit: Yes (6) Nicotine dependence Current Visit: Yes Qualifiers: Nicotine product type: cigarettes Substance use status: in withdrawal Qualified Code(s): F17.213 - Nicotine dependence, cigarettes, with withdrawal (7) Substance induced mood disorder Current Visit: Yes (8) Opioid dependence Current Visit: Yes Qualifiers: Substance use status: uncomplicated Qualified Code(s): F11.20 - Opioid dependence, uncomplicated (9) Sedative hypnotic or anxiolytic dependence Current Visit: Yes (10) Hepatitis C Current Visit: Yes Qualifiers: Viral hepatitis chronicity: chronic Hepatic coma status: without hepatic coma Qualified Code(s): B18.2 - Chronic viral hepatitis C
== END 2017-10-27 11:45 | disposition left against medical advice (07) | DRG 770 ==
LOC: YASAS 15:21 → Y5N 15:22
PROVIDERS: ADMIT Psychiatry & Neurology Psychiatry; ATTEND Psychiatry & Neurology Psychiatry
PROC: HZ42ZZZ Group Counseling for Substance Abuse Treatment, Cognitive-Behavioral (ICD-10-PCS; principal; 2017-10-26)
DX: F10.20 Alcohol dependence, uncomplicated (principal); F11.20 Opioid dependence, uncomplicated; F14.20 Cocaine dependence, uncomplicated; F13.20 Sedative, hypnotic or anxiolytic dependence, uncomplicated; F17.213 Nicotine dependence, cigarettes, with withdrawal; F19.24 Other psychoactive substance dependence with psychoactive substance-induced mood disorder; Z21 Asymptomatic human immunodeficiency virus [HIV] infection status; B18.2 Chronic viral hepatitis C; G62.9 Polyneuropathy, unspecified; R26.2 Difficulty in walking, not elsewhere classified; Z99.89 Dependence on other enabling machines and devices; Z96.643 Presence of artificial hip joint, bilateral

== ENCOUNTER 2018-03-05 11:12 | Inpatient (IN) | payer OTHER ==
[2018-03-05 11:45] VITALS: BMI 21.4
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
[2018-03-05] MEDS ORDERED: MAG HYDROX/AL HYDROX/SIMETH 30 ML UNIT-DOSE CUP PO PRN (12:44)
[2018-03-05] MEDS ORDERED: guaiFENesin/D-METHORPHAN HB 10 ML UNIT-DOSE CUPS PO PRN (12:44)
[2018-03-05] MEDS ORDERED: MAGNESIUM CITRATE 300 ML BOTTLE PO PRN (12:44)
[2018-03-05] MEDS ORDERED: MENTHOL/PHENOL 1 EACH UD MM PRN (12:44)
[2018-03-05] MEDS ORDERED: IBUPROFEN 400 MG TABLET (FP) PO PRN (12:44)
[2018-03-05] MEDS ORDERED: P-EPHED 60MG/TRIPROLIDI 2.5MG TABLET PO PRN (12:44)
[2018-03-05] MEDS ORDERED: LOPERAMIDE HCL 2 MG CAPSULE PO PRN (12:44)
[2018-03-05] MEDS ORDERED: MAGNESIUM HYDROX 2400MG/30ML ORAL SUSPENSION 30 ML CUP PO PRN (12:44)
[2018-03-05] MEDS ORDERED: ACETAMINOPHEN 325 MG TABLET (FP) PO PRN (12:44)
[2018-03-05] MEDS ORDERED: METHADONE HCL 10 MG TABLET (FOR DETOX USE ONLY) PO ONE ×2 (14:10→23:00)
[2018-03-05] MEDS: diazePAM 5 MG TABLET PO PRN ×2 (15:34→22:09)
--- NOTE | 2018-03-05 16:29 | CONSULT ---
[facility] Psychiatric Consult - Data Date of interview: 03/05/18 Admission source: [facility] Identifying data: This is one of multiple admissions to [facility] for this 57 y/ o male seeking detoxification treatment, on , for alcohol, heroin and cocaine dependence.Patient is single, no children, domiciled, unemployed, reportedly disabled and supported on food stamps. Substance Abuse History: Confirmed by the patient in this interview. Details in current [facility] report : Smoking history: Current every day smoker. Have you smoked in the past 12 months: Yes. Aproximately how many cigarettes per day: 6. Cigars Per Day: 0. Hx Chewing Tobacco Use: No. Initiated information on smoking cessation: Yes. 'Breaking Loose' booklet given: 03/05/18. - Substance & Tx. History. Hx Alcohol Use: No. Hx Substance Use: Yes. Substance Use Type : Heroin. Hx Substance Use Treatment: Yes ([facility] 10/23/17 to 10/26/17). - Substances Abused. Heroin. Route: Inhalation. Frequency: Daily. Amount used: 10 bags. Age of first use: 33. Date of Last Use: 03/04/18. Cocaine. Route: Smoking. Frequency: 1-3 times last 30 days. Amount used: 100$. Age of first use: 41. Date of Last Use: 03/04/18 Medical History: HIV infection since 1981 (on antietroviral medications), hepatitis C, neuropathy, bilateral hip replacement and a history of splenectomy. Psychiatric History: History of one [facility]Patient states that he received the diagnosis of MDD and Bipolar Disorder years ago. Mr Luna indicates that he sees a psychiatrist at the [facility] in the [place]. Managed with wellbutrin 100 mg po bid. Patient is known for chronic non-adherence to OPD care (medications not taken + failure to keep appointments). No reported history of suicide attempts. Physical/Sexual Abuse/Trauma History: Patient denies. Additional Comment: Urine Drug Screen Results: LEISA-Cocaine, OPI-Opiates, MTD- Methadone. Noted. Mental Status Exam - Mental Status Exam Alert and Oriented to: Time, Place, Person Cognitive Function: Grossly Intact Patient Appearance: Well Groomed Mood: Nervous, Withdrawn Affect: Mood Congruent, Constricted Patient Behavior: Fatigued, Cooperative Speech Pattern: Clear Voice Loudness: Normal Thought Process: Goal Oriented Thought Disorder: Not Present Hallucinations: Denies Suicidal Ideation: Denies Homicidal Ideation: Denies Insight/Judgement: Poor Sleep: Fair Appetite: Fair Muscle strength/Tone: Normal Gait/Station: Normal Psychiatric Findings - Problem List ([place] 1, 2,3) (1) Opioid dependence with withdrawal Current Visit: Yes Status: Acute (2) Alcohol dependence with uncomplicated withdrawal Current Visit: Yes Status: Acute (3) Cocaine dependence Current Visit: Yes Status: Acute Qualifiers: Substance use status: uncomplicated Qualified Code(s): F14.20 - Cocaine dependence, uncomplicated (4) Nicotine dependence Current Visit: Yes Status: Acute Qualifiers: Nicotine product type: cigarettes Substance use status: in withdrawal Qualified Code(s): F17.213 - Nicotine dependence, cigarettes, with withdrawal (5) Substance induced mood disorder Current Visit: Yes Status: Acute (6) Depressive disorder Current Visit: Yes Status: Chronic Comment: As per records.Prescribed bupropion.Chronically non-adherent to medication.Affiliated with [facility] in the [facility]. (7) Non-compliant patient Current Visit: Yes Status: Chronic - Initial Treatment Plan Initial Treatment Plan: Psychoeducation : information is provided to the patient , depicting the negative consequences of substance use (medical,legal, interpersonal,social) and the benefits of sobriety. Also made aware of resources available for relapse prevention (OTP settings, NA fellowships, naltrexone maintenance). Psychotherapy : cognitive, group, individual and recreational (socialization skills). Social work team will explore patient's current needs / issues. Detoxification in progress. Welbutrin 100 mg po bid ( second dose not to be dispensed after 4 pm). Patient is informed of the risk of seizures. Mr Luna endorses a history of good tolerability and he insists on the continuation of this medication in this hospital course. Consent (verbal) given. Observation.
[2018-03-05] MEDS ORDERED: MELATONIN 5 MG TABLETS PO PRN (22:00)
[2018-03-05] MEDS: THIAMINE HCL 100 MG TABLET (FP) PO SCH (22:09)
[2018-03-06] MEDS: PATIENT'S OWN MEDICATION (NON-FORMULARY) (Emtricitabine/Tenofov Alafenam [Descovy 200-25 M PO SCH (08:26)
[2018-03-06] MEDS: RITONAVIR 100 MG TABLET PO SCH (08:27)
[2018-03-06] MEDS: PATIENT'S OWN MEDICATION (NON-FORMULARY) (Dolutegravir Sodium [Tivicay] 50 MG) PO SCH (08:28)
[2018-03-06] MEDS ORDERED: METHADONE HCL 10 MG TABLET (FOR DETOX USE ONLY) PO ONE (10:00)
[2018-03-06] MEDS: PRENATAL VITAMINS W/ FOLIC ACID TABLET (FP) PO SCH (10:14)
[2018-03-06] MEDS: diazePAM 5 MG TABLET PO PRN ×2 (10:14→16:43)
[2018-03-06] MEDS: buPROPion HCL 100 MG TABLET PO SCH ×2 (10:14→16:44)
[2018-03-06] MEDS: ATAZANAVIR SO4 300 MG CAPSULE PO SCH (10:14)
[2018-03-06 10:20] LABS: HEMATOCRIT 35.8 % (35.4-49); HEMOGLOBIN 11.2 GM/dL (11.7-16.9); MCH 27.7 pg (25.7-33.7); MCHC 31.4 g/dl (32.0-35.9); MEAN CELL VOLUME 88.4 fl (80-96); MEAN PLT VOLUME 10.3 fl (7.5-11.1); PLATELET COUNT 326 K/MM3 (134-434); RBC 4.05 M/mm3 (4.00-5.60); RDW 15.8 % (11.9-15.9); WHITE BLOOD COUNT 8.8 K/mm3 (4.0-10.0)
[2018-03-06 10:59] LABS: ALBUMIN 3.1 g/dl (3.4-5.0); ALK PHOS 111 U/L (45-117); ANION GAP 7 MMOL/L (8-16); BILIRUBIN,TOTAL 0.8 mg/dL (0.2-1); BLOOD UREA NITROGEN 9 mg/dL (7-18); CALCIUM 8.6 mg/dL (8.5-10.1); CHLORIDE 109 mmol/L (98-107); CO2 23 mmol/L (21-32); CREATININE 0.7 mg/dL (0.55-1.3); GLUCOSE,RANDOM 100 mg/dL (74-106); SGOT/AST 67 U/L (15-37); SGPT/ALT 58 U/L (13-61); SODIUM 140 mmol/L (136-145); TOT PROT 7.4 g/dl (6.4-8.2)
--- NOTE | 2018-03-06 11:02 | PN ---
[facility] COWS - Scale Resting Pulse: 0= CT 80 or Below Sweatin=Flushed/Facial Moisture Restless Observation: 1= Difficult to Sit Still Pupil Size: 0= Normal to Room Light Bone or Joint Aches: 2= Severe Diffuse Aches Runny Nose/ Eye Tearin= None GI Upset > 30mins: 1= Stomach Cramp Tremor Observation of Outstretched Hands: 1= Tremor [place], Not Seen Yawning Observation: 1= 1-2x During Session Anxiety or Irritability: 2=Irritable/Anxious Goose Flesh Skin: 0=Smooth Skin COWS Score: 10 B[facility] Progress Note (SOAP) Subjective: PATIENT C/O BODY ACHES, SWEATING, ANXIETY AND CHILLS Objective: 03/06/18 11:00 Laboratory Tests 03/06/18 03/06/18 05:30 05:30 WBC 8.8 RBC 4.05 Hgb 11.2 L Hct 35.8 MCV 88.4 MCH 27.7 MCHC 31.4 L RDW 15.8 Plt Count 326 MPV 10.3 Sodium 140 Potassium 4.0 Chloride 109 H Carbon Dioxide 23 Anion Gap 7 L BUN 9 Creatinine 0.7 Creat Clearance w eGFR > 60 Random Glucose 100 Calcium 8.6 Total Bilirubin 0.8 AST 67 H ALT 58 Alkaline Phosphatase 111 Total Protein 7.4 Albumin 3.1 L Vital Signs Temperature 97.5 F L 03/06/18 06:06 Pulse Rate 49 L 03/06/18 06:06 Respiratory Rate 20 03/06/18 06:06 Blood Pressure 114/69 03/06/18 06:06 O2 Sat by Pulse Oximetry (%) SKIN WARM AND MOIST ALERT AND ORIENTED X 3 CAR S1S2 RESP CTA BL EXT FULL ROM, +TREMORS ANXIOUS Assessment: WITHDRAWAL SX Plan: DETOX ORDERED ENCOURAGE ORAL FLUIDS CONTINUE TO MONITOR CLINICALLY 03/06/18 11:01
--- NOTE | 2018-03-06 13:01 | EKG ---
Test Reason : Blood Pressure : / mmHG Vent. Rate : 065 BPM Atrial Rate : 065 BPM P-R Int : 144 ms QRS Dur : 100 ms QT Int : 494 ms P-R-T Axes : 057 -45 022 degrees QTc Int : 513 ms NORMAL SINUS RHYTHM LEFT ANTERIOR FASCICULAR BLOCK PROLONGED QT ABNORMAL ECG Confirmed by MD ANANTH, ANKUSH ([id number]) on 03/06/2018 1:00:30 PM Referred By: Confirmed By:ANKUSH WADSWORTH MD
[2018-03-06] MEDS: THIAMINE HCL 100 MG TABLET (FP) PO SCH (22:26)
[2018-03-07] MEDS: RITONAVIR 100 MG TABLET PO SCH (08:32)
[2018-03-07] MEDS: ATAZANAVIR SO4 300 MG CAPSULE PO SCH (08:32)
[2018-03-07] MEDS: PATIENT'S OWN MEDICATION (NON-FORMULARY) (Dolutegravir Sodium [Tivicay] 50 MG) PO SCH (08:33)
[2018-03-07] MEDS: PATIENT'S OWN MEDICATION (NON-FORMULARY) (Emtricitabine/Tenofov Alafenam [Descovy 200-25 M PO SCH (08:33)
[2018-03-07] MEDS ORDERED: METHADONE HCL 5 MG TABLET (FOR DETOX USE ONLY) PO ONE (10:00)
[2018-03-07] MEDS: diazePAM 5 MG TABLET PO PRN ×2 (10:21→17:32)
[2018-03-07] MEDS: PRENATAL VITAMINS W/ FOLIC ACID TABLET (FP) PO SCH (10:21)
[2018-03-07] MEDS: buPROPion HCL 100 MG TABLET PO SCH ×2 (10:21→17:30)
--- NOTE | 2018-03-07 16:15 | PN ---
[facility] COWS - Scale Resting Pulse: 0= IN 80 or Below Sweatin= Chills/Flushing Restless Observation: 1= Difficult to Sit Still Pupil Size: 2= Moderately Dilated Bone or Joint Aches: 2= Severe Diffuse Aches Runny Nose/ Eye Tearin= None GI Upset > 30mins: 0= None Tremor Observation of Outstretched Hands: 2= Slight Tremor Visible Yawning Observation: 1= 1-2x During Session Anxiety or Irritability: 1=Feels Anxious/Irritable Goose Flesh Skin: 0=Smooth Skin COWS Score: 10 B[facility] Progress Note (SOAP) Subjective: PATIENT C/O FEELING TIRED, ANXIOUS, SWEATS. Objective: 03/07/18 16:13 Laboratory Tests 03/06/18 03/06/18 03/06/18 05:30 05:30 05:30 WBC 8.8 RBC 4.05 Hgb 11.2 L Hct 35.8 MCV 88.4 MCH 27.7 MCHC 31.4 L RDW 15.8 Plt Count 326 MPV 10.3 Sodium 140 Potassium 4.0 Chloride 109 H Carbon Dioxide 23 Anion Gap 7 L BUN 9 Creatinine 0.7 Creat Clearance w eGFR > 60 Random Glucose 100 Calcium 8.6 Total Bilirubin 0.8 AST 67 H ALT 58 Alkaline Phosphatase 111 Total Protein 7.4 Albumin 3.1 L RPR Titer Nonreactive Vital Signs Temperature 96.2 F L 03/07/18 14:01 Pulse Rate 68 03/07/18 14:01 Respiratory Rate 18 03/07/18 14:01 Blood Pressure 112/66 03/07/18 14:01 O2 Sat by Pulse Oximetry (%) PE SKIN WARM AND MOIST ALERT AND ORIENTED AMB AD NICOLAS EXT FULL ROM Assessment: 03/07/18 16:15 WITHDRAWAL SX Plan: CONTINUE DETOX ORDERED ENCOURAGE ORAL FLUIDS CONTINUE TO MONITOR
[2018-03-07] MEDS: THIAMINE HCL 100 MG TABLET (FP) PO SCH (22:53)
[2018-03-08] MEDS: diazePAM 5 MG TABLET PO PRN ×2 (07:22→10:32)
[2018-03-08] MEDS: PATIENT'S OWN MEDICATION (NON-FORMULARY) (Dolutegravir Sodium [Tivicay] 50 MG) PO SCH (09:25)
[2018-03-08] MEDS: ATAZANAVIR SO4 300 MG CAPSULE PO SCH (09:25)
[2018-03-08] MEDS: PATIENT'S OWN MEDICATION (NON-FORMULARY) (Emtricitabine/Tenofov Alafenam [Descovy 200-25 M PO SCH (09:25)
[2018-03-08] MEDS: RITONAVIR 100 MG TABLET PO SCH (09:26)
[2018-03-08] MEDS ORDERED: METHADONE HCL 5 MG TABLET (FOR DETOX USE ONLY) PO ONE (10:00)
[2018-03-08] MEDS: buPROPion HCL 100 MG TABLET PO SCH ×2 (10:04→16:57)
[2018-03-08] MEDS: PRENATAL VITAMINS W/ FOLIC ACID TABLET (FP) PO SCH (10:04)
--- NOTE | 2018-03-08 11:13 | PN ---
S Progress Note Note: PATIENT CONTINUES WITH DETOX REGIMEN. PATIENT C/O MILD BODY ACHES Laboratory Tests 03/06/18 03/06/18 03/06/18 05:30 05:30 05:30 WBC 8.8 RBC 4.05 Hgb 11.2 L Hct 35.8 MCV 88.4 MCH 27.7 MCHC 31.4 L RDW 15.8 Plt Count 326 MPV 10.3 Sodium 140 Potassium 4.0 Chloride 109 H Carbon Dioxide 23 Anion Gap 7 L BUN 9 Creatinine 0.7 Creat Clearance w eGFR > 60 Random Glucose 100 Calcium 8.6 Total Bilirubin 0.8 AST 67 H ALT 58 Alkaline Phosphatase 111 Total Protein 7.4 Albumin 3.1 L RPR Titer Nonreactive Vital Signs Temperature 96.9 F L 03/08/18 09:39 Pulse Rate 86 03/08/18 09:39 Respiratory Rate 18 03/08/18 09:39 Blood Pressure 110/77 03/08/18 09:39 O2 Sat by Pulse Oximetry (%) PE: SKIN WARM AND DRY ALERT AND ORIENTED X 3 AMB AD NICOLAS EXT MILD SWELLING OF HANDS/WRIST DUE TO OLD INJURY. FULL ROM. NO TREMORS A/P: WITHDRAWAL SX CONTINUE DETOX ORDERED ENCOURAGE ORAL FLUIDS CONTINUE TO MONITOR CLINICALLY
[2018-03-08 11:23] LABS: URINE APPEARANCE CLEAR; URINE BILIRUBIN NEGATIVE (<2.0 mg/dL); URINE COLOR LTYELLOW; URINE GLUCOSE (UA) NEGATIVE (NEGATIVE); URINE KETONE NEGATIVE (NEGATIVE); URINE LEUK ESTERASE NEGATIVE (NEGATIVE); URINE NITRITE NEGATIVE (NEGATIVE); URINE PROTEIN NEGATIVE (NEGATIVE); URINE UROBILINOGEN NEGATIVE mg/dL (0.2-1.0)
[2018-03-08] MEDS: THIAMINE HCL 100 MG TABLET (FP) PO SCH (22:05)
[2018-03-09 09:08] VITALS: BP 100/64; PULSE 62; TEMP 96.8
[2018-03-09] MEDS: PRENATAL VITAMINS W/ FOLIC ACID TABLET (FP) PO SCH (09:20)
[2018-03-09] MEDS: PATIENT'S OWN MEDICATION (NON-FORMULARY) (Dolutegravir Sodium [Tivicay] 50 MG) PO SCH (09:20)
[2018-03-09] MEDS: PATIENT'S OWN MEDICATION (NON-FORMULARY) (Emtricitabine/Tenofov Alafenam [Descovy 200-25 M PO SCH (09:21)
[2018-03-09] MEDS: buPROPion HCL 100 MG TABLET PO SCH (09:21)
[2018-03-09] MEDS: ATAZANAVIR SO4 300 MG CAPSULE PO SCH (09:21)
[2018-03-09] MEDS: RITONAVIR 100 MG TABLET PO SCH (09:22)
[2018-03-09] MEDS ORDERED: METHADONE HCL 10 MG TABLET (FOR DETOX USE ONLY) PO ONE (10:00)
--- NOTE | 2018-03-09 10:50 | DS ---
[facility] Detox Discharge Summary Admission Date: 03/05/18 Discharge Date: 03/09/18 - History Present History: Opioid Dependence - Physical Exam Results Vital Signs: Vital Signs Temperature 96.8 F L 03/09/18 09:07 Pulse Rate 62 03/09/18 09:07 Respiratory Rate 18 03/09/18 09:07 Blood Pressure 100/64 03/09/18 09:07 O2 Sat by Pulse Oximetry (%) Pertinent Admission Physical Exam Findings: PATIENT TOLERATED DETOX WITHOUT ADVERSE EVENT. ALERT AND ORIENTED X 3. AMB AD NICOLAS. EXT WITH FULL ROM. MEDICALLY STABLE. PATIENT DENIES SI/HI. PATIENT ACCEPTED REHAB REFERRAL TO [facility]. PATIENT ENCOURAGED TO COMPLETE REHAB TO PREVENT RELAPSE AND TO FOLLOW UP WITH PCP WITH ONE WEEK ONCE D/C HOME. - Treatment Hospital Course: Detox Protocol Followed, Detoxed Safely, Responded well, Discharged Condition Good, Rehab Referral Accepted Patient has Accepted a Rehab Referral to: [facility] - Medication Discharge Medications: Ambulatory Orders Atazanavir [Reyataz -] 300 mg PO DAILY 05/25/17 Dolutegravir Sodium [Tivicay] 50 mg PO DAILY 05/25/17 Ritonavir [Norvir -] 100 mg PO DAILY 05/25/17 Bupropion HCl [Wellbutrin -] 100 mg PO BID #60 tablet 10/27/17 Emtricitabine/Tenofov Alafenam [Descovy 200-25 mg Tablet (Nf)] 1 each PO DAILY 03/05/18 - Diagnosis (1) Withdrawal syndrome Current Visit: Yes Status: Resolved Qualifiers: Substance type: opioid Qualified Code(s): F11.23 - Opioid dependence with withdrawal - AMA Did Patient Leave Against Medical Advice: No
[2018-03-10] MEDS ORDERED: METHADONE HCL 5 MG TABLET (FOR DETOX USE ONLY) PO ONE (06:00)
== END 2018-03-09 12:56 | disposition other institution (70) | DRG 773 ==
LOC: YASAS 11:12 → Y3N 13:47
PROC: HZ2ZZZZ Detoxification Services for Substance Abuse Treatment (ICD-10-PCS; principal; 2018-03-05)
DX: F11.23 Opioid dependence with withdrawal (principal); F10.230 Alcohol dependence with withdrawal, uncomplicated; F14.20 Cocaine dependence, uncomplicated; F17.213 Nicotine dependence, cigarettes, with withdrawal; F19.24 Other psychoactive substance dependence with psychoactive substance-induced mood disorder; F32.9 Major depressive disorder, single episode, unspecified; Z21 Asymptomatic human immunodeficiency virus [HIV] infection status; B18.2 Chronic viral hepatitis C; G62.9 Polyneuropathy, unspecified; Z96.643 Presence of artificial hip joint, bilateral; Z90.81 Acquired absence of spleen; Z91.19 Patient's noncompliance with other medical treatment and regimen
CPT/HCPCS: 36415; 80053; 81003; 85027; 86593; 93005; 93010

== ENCOUNTER 2018-03-09 13:03 | Inpatient (IN) | payer OTHER ==
[2018-03-09] MEDS ORDERED: MENTHOL/PHENOL 1 EACH UD MM PRN (14:15)
[2018-03-09] MEDS ORDERED: P-EPHED 60MG/TRIPROLIDI 2.5MG TABLET PO PRN (14:15)
[2018-03-09] MEDS ORDERED: hydrOXYzine PAMOATE 25 MG CAPSULE (FP) PO PRN (14:15)
[2018-03-09] MEDS ORDERED: MAGNESIUM HYDROX 2400MG/30ML ORAL SUSPENSION 30 ML CUP PO PRN (14:15)
[2018-03-09] MEDS ORDERED: IBUPROFEN 400 MG TABLET (FP) PO PRN (14:15)
[2018-03-09] MEDS ORDERED: LOPERAMIDE HCL 2 MG CAPSULE PO PRN (14:15)
[2018-03-09] MEDS ORDERED: MAG HYDROX/AL HYDROX/SIMETH 30 ML UNIT-DOSE CUP PO PRN (14:15)
[2018-03-09] MEDS ORDERED: MAGNESIUM CITRATE 300 ML BOTTLE PO PRN (14:15)
[2018-03-09] MEDS ORDERED: ACETAMINOPHEN 325 MG TABLET (FP) PO PRN (14:15)
[2018-03-09] MEDS ORDERED: guaiFENesin/D-METHORPHAN HB 10 ML UNIT-DOSE CUPS PO PRN (14:15)
--- NOTE | 2018-03-09 14:18 | HP ---
[facility] Rehab Assess/Revision - Admission History Admitted to Rehab from: [facility] - Findings Detox History & Physical reviewed: Yes Concur with findings: Yes Inpatient Rehab Admission - Initial Determination Are CD services needed?: Yes Free of communicable disease: Yes Not in need of hospitalization: Yes - Rehab Admission Criteria Previous failed treatment: Yes Poor recovery environment: Yes Comorbidities: Yes Lacks judgement: Yes Patient is meeting Inpatient Rehab admission criteria:: Yes
[2018-03-09] MEDS: buPROPion HCL 100 MG TABLET PO SCH (21:14)
[2018-03-09] MEDS ORDERED: MELATONIN 5 MG TABLETS PO PRN (22:00)
[2018-03-09] MEDS ORDERED: THIAMINE HCL 100 MG TABLET (FP) PO SCH (22:00)
[2018-03-10 06:54] VITALS: BP 112/82; PULSE 71; TEMP 98.3
[2018-03-10] MEDS ORDERED: RITONAVIR 100 MG TABLET PO SCH (08:00)
[2018-03-10] MEDS ORDERED: DOLUTEGRAVIR SODIUM 50 MG TABLET PO SCH (08:00)
[2018-03-10] MEDS ORDERED: TENOFOV ALAFENAM PO SCH (08:00)
[2018-03-10] MEDS ORDERED: DOLUTEGRAVIR SODIUM 50 MG PO SCH (08:00)
[2018-03-10] MEDS ORDERED: EMTRICITABINE PO SCH (08:00)
[2018-03-10] MEDS ORDERED: EMTRICITABINE/TENOFOV ALAFENAM (DESCOVY) TABLET PO SCH (08:00)
[2018-03-10] MEDS ORDERED: ATAZANAVIR SO4 300 MG CAPSULE PO SCH (08:00)
[2018-03-10] MEDS ORDERED: PRENATAL VITAMINS W/ FOLIC ACID TABLET (FP) PO SCH (10:00)
[2018-03-10] MEDS: buPROPion HCL 100 MG TABLET PO SCH (10:02)
[2018-03-10] MEDS ORDERED: PT OWN MED DRAWER 7, Y5N ONE (17:53)
--- NOTE | 2018-03-10 18:56 | PN ---
S Progress Note Note: Psychiatric nurse practitioner note: Call received by RN stating patient was leaving AMA. Patient encouraged to stay and complete the program but he continued to refused. Patient signed out of rehab.
== END 2018-03-10 18:00 | disposition left against medical advice (07) | DRG 770 ==
LOC: YASAS 13:03 → Y3W 13:05
PROVIDERS: ADMIT Psychiatry & Neurology Psychiatry; ATTEND Psychiatry & Neurology Psychiatry
PROC: HZ42ZZZ Group Counseling for Substance Abuse Treatment, Cognitive-Behavioral (ICD-10-PCS; principal; 2018-03-09)
DX: F11.23 Opioid dependence with withdrawal (principal); F10.230 Alcohol dependence with withdrawal, uncomplicated; F14.20 Cocaine dependence, uncomplicated; F17.213 Nicotine dependence, cigarettes, with withdrawal; F19.24 Other psychoactive substance dependence with psychoactive substance-induced mood disorder; F32.9 Major depressive disorder, single episode, unspecified; Z21 Asymptomatic human immunodeficiency virus [HIV] infection status; B18.2 Chronic viral hepatitis C; G62.9 Polyneuropathy, unspecified; Z96.643 Presence of artificial hip joint, bilateral; Z90.81 Acquired absence of spleen; Z91.19 Patient's noncompliance with other medical treatment and regimen